=== PATIENT | male | born 1950 | race Caucasian/White ===

== ENCOUNTER 2017-08-21 09:15 | Observation (INO) ==
[2017-08-21] MEDS ORDERED: *HR* Adenosine 6 MG/2 ML VIAL IVP ONE (09:34)
[2017-08-21 09:48] LABS: Basophils # 0.1 K/mcL (0.0-0.2); Basophils % 0.5 %; Eosinophils # 0.2 K/mcL (0.0-0.6); Hematocrit 40.3 % (37.5-50.1); Hemoglobin 12.9 g/dL (12.9-16.9); Immature Granulocytes % 0.5 % (0-4); Lymphocytes # 2.2 K/mcL (0.6-4.6); Lymphocytes % 21.5 %; Mean Corpuscular Volume 78.1 fL (83.0-100.0); Mean Platelet Volume 8.9 fL (9.4-12.4); Monocytes # 0.8 K/mcL (0.0-1.3); Monocytes % 7.5 %; Neutrophils # 6.9 K/mcL (1.6-8.9); Platelet Count 381 K/mcL (140-400); Red Blood Count 5.16 M/mcL (4.19-5.50); Red Cell Distribution Width 17.2 % (11.5-14.5)
[2017-08-21 09:53] LABS: Prothrombin Time 10.9 Seconds (9.4-12.1)
[2017-08-21 09:56] LABS: Activated Partial Thrombo Time 32.3 Seconds (26.0-36.0); BUN/Creatinine Ratio 10 (6-26); Blood Urea Nitrogen 12 mg/dL (8-26); Calcium 9.6 mg/dL (8.6-10.8); Carbon Dioxide 26 mEq/L (19-29); Chloride 102 mEq/L (98-109); Glucose 136 mg/dL (70-99); Osmolality,Calculated 288 (280-300); Potassium 4.1 mEq/L (3.5-4.5); Sodium 138 mEq/L (136-145); eGFR For African Americans > 60 (> 60); eGFR For Non-African Americans 60 (> 60)
--- NOTE | 2017-08-21 10:13 | Emergency Department Note ---
Disposition Clinical Impression: Palpitations, Supraventricular tachycardia Disposition: Admitted As Inpatient Condition: Good Referrals: Daniel Bob MD [Primary Care Provider] - Forms: ED Satisfaction Letter Time of Disposition: 10:21 Arrhythmia/Palpitations HPI - General Chief Complaint: ED Arrhythmia/Palpitations Stated Complaint: SVT from cardiology Time Seen by Provider: 08/21/17 09:18 Source: patient Mode of arrival: ambulatory Limitations: no limitations Nursing Notes Reviewed: Yes Vital Signs Reviewed: Yes - History of Present Illness HPI Narrative: Patient presents to the cardiology office for evaluation of tachycardia. Patient has been being followed closely by cardiology for tachycardia and atrial fibrillation over the last several weeks. Is on a Holter monitor placement that time. Denied any recent trauma or injury or medication changes this point. He is concerned because his had intermittent chest pressure and then tachycardia. Deburring Technician Dr. Juan Isbell advised to come or the emergency room for evaluation. 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 Duration: constant Severity: moderate Context: occurred during rest Arrhythmia History: atrial fibrillation, SVT Associated symptoms: Reports: chest pain Treatments prior to arrival: vagal maneuvers - Related Data Home Medications Medication Instructions Recorded Confirmed Aspirin [Lo-Dose Aspirin EC] 81 mg PO DAILY 05/02/16 08/21/17 Gabapentin [Neurontin] 600 mg PO TID 05/02/16 08/21/17 Levalbuterol [Xopenex INH] 2 puff IH Q6H 05/02/16 08/21/17 Levothyroxine [Synthroid] 75 mcg PO 0630 05/02/16 08/21/17 Omeprazole [PriLOSEC] 40 mg PO DAILY 05/02/16 08/21/17 OxyCODONE/APAP 10/325 [Percocet 1 tab PO TID PRN 05/02/16 08/21/17 10/325 MG] Tiotropium [Spiriva] 1 puff IH DAILY 05/02/16 08/21/17 Diltiazem CD (24hr) [Cardizem CD] 240 mg PO DAILY 05/05/16 08/21/17 Fluticasone/Salmeterol [Advair 1 puff IH BID 06/16/16 08/21/17 250-50 Diskus] Lactose-Reduced Food [Ensure 1 bottle PO TID 06/16/16 08/21/17 Liquid] Nitroglycerin [Nitrostat] 0.4 mg SL AD PRN 06/16/16 08/21/17 Roflumilast [Daliresp] 500 mcg PO DAILY 06/16/16 08/21/17 Mirtazapine [Remeron] 15 mg PO HS 08/21/17 08/21/17 Promethazine [Phenergan] 25 mg PO BID PRN 08/21/17 08/21/17 Previous Rx's Medication Instructions Recorded Rivaroxaban [Xarelto] 20 mg PO DAILY #30 tablet 05/05/16 Propafenone [Rhythmol] 150 mg PO Q8H #90 tablet 06/17/16 Allergies Allergy/AdvReac Type Severity Reaction Status Date / Time Cyclobenzaprine Allergy Mild Hives Verified 08/21/17 09:57 [From Flexeril] Oxycodone Allergy Unknown Itching Verified 08/21/17 09:57 All systems ED: reviewed and negative except as stated. Review of Systems: As Per HPI Constitutional: Denies: fever, chills Eyes: Denies: eye pain Cardiovascular: Reports: palpitations. Denies: chest pain, dyspnea on exertion , orthopnea Respiratory: Denies: cough, dyspnea, wheezes Gastrointestinal: Denies: abdominal pain, nausea, vomiting, diarrhea Genitourinary: Denies: urgency, dysuria, frequency Musculoskeletal: Denies: back pain, neck pain Neurological: Denies: headache Past Medical History - Past Medical History Attestation: Yes The following information was validated with the patient. Source: patient Medical history: Reports: GERD, hypertension, thyroid disease Surgical history: Reports: herniorrhaphy Psychiatric history: Reports: no psych history - Social History Smoking Status: Current every day smoker Smokeless Tobacco Status: No Alcohol use: Reports: none Drug use: Reports: none Physical Exam - General Limitations: no limitations General appearance: alert, in no apparent distress - Head Head exam: atraumatic, normocephalic, normal inspection - Chest Chest inspection: Present: normal inspection, symmetric chest wall rise. Absent : tenderness - Respiratory Respiratory exam: Present: normal lung sounds bilaterally. Absent: respiratory distress, wheezes, stridor, accessory muscle use - Cardiovascular Cardiovascular exam: Present: normal rhythm, tachycardia, normal heart sounds - Abdominal Exam Abdominal exam: Present: soft, Non-Tender, normal bowel sounds. Absent: tenderness, distention, guarding, rebound, rigidity - Extremities Exam Extremities exam: Present: normal inspection, full ROM, normal capillary refill. Absent: tenderness, pedal edema - Back Exam Back exam: Present: normal inspection - Neurological Exam Neurological exam: Present: alert, oriented X3, CN II-XII intact, normal gait - Skin Skin exam: Present: warm, dry, intact, normal color Course Course Narrative: Patient seen and examined the time arrival here to the emergency room. 59-year- old male presents from cardiology office for evaluation of supraventricular tachycardia. Patient has history of atrial fibrillation and SVT in the past. Currently is a Holter monitor in place. He is at the file machine operator office this morning secondary to standard outpatient evaluation and some intermittent chest pressure and discomfort. On presentation here patient had an EKG and hand that did show sinus tachycardia with a rate of approximately 175. He was sent over from the file machine operator's office after vagal maneuvers were attempted. Immediately patient was placed on a monitored pacer pads were applied to the chest and the defibrillator box was attached to the patient this time. 2 large- bore IVs were accessed in the before meals bilaterally. Patient was hemodynamically stable mentating appropriately. Currently denying any other symptoms. Lungs were clear heart regular abdomen is soft nontender nondistended no guarding no rigidity. He has not fallen or injured himself anytime recently. Patient is currently on Zarontin Cardizem metoprolol and Rythmol. Immediate EKG was reviewed by myself at the bedside showing what appears to be a stable complex SVT with a normal QRS morphology on the terminal aspect of the QRS. I discussed this with the on-call file machine operator Dr. Juan Isbell. He agreed this is probably P-wave with SVT. During our conversation the patient spontaneously converted back to sinus rhythm. Repeat EKG collected approximately 30 minutes after arrival showing sinus rhythm with a heart rate of 101. TN interval 160 QRS duration 91. QTC of 410. No other recommendations noted in the file machine operator except that we should admit the patient prep regulation of his medication. Screening laboratory workup completed at this time. Patient is currently symptom free. No other intervention required. The emergency room at this point. Admission process to be completed once laboratory workup is resulted. Patient was informed the plan is comfortable with this plan. - Reevaluation(s) Reevaluation #1: Laboratory workup was otherwise unremarkable this time. Deburring Technician in hospitals consult around the emergency room. Patient will be admitted for medication management. No other concerns or issues are noted. Admission process to be completed at this time. Time: 11:09 Vital Signs Temperature 0 F L 08/21/17 09:25 Pulse Rate 170 08/21/17 09:25 Respiratory Rate 18 08/21/17 09:25 Blood Pressure 119/108 08/21/17 09:25 O2 Sat by Pulse Oximetry 99 08/21/17 09:25 Temperature 0 F L 08/21/17 09:25 Pulse Rate 170 08/21/17 09:35 Respiratory Rate 20 08/21/17 09:35 Blood Pressure 117/84 08/21/17 09:35 O2 Sat by Pulse Oximetry 98 08/21/17 09:35 Oxygen Delivery Oxygen Delivery Room Air Arrhythmia/Palpitations - MDM Narrative Medical decision making narrative: Supraventricular tachycardia - Medical Records Medical records reviewed: Yes I reviewed the patient's medical records. - Lab Data Lab results reviewed: Yes I reviewed the patient's lab results. Result diagrams: 08/21/17 09:30 08/21/17 09:30 Lab Results 08/21/17 08/21/17 08/21/17 Range/Units 09:30 09:30 09:30 WBC 10.1 (4.3-11.1) K/mcL RBC 5.16 (4.19-5.50) M/mcL Hgb 12.9 (12.9-16.9) g/dL Hct 40.3 (37.5-50.1) % MCV 78.1 L (83.0-100.0) fL MCH 25.0 L (28.0-33.3) pg MCHC 32.0 (31.6-35.5) g/dL RDW 17.2 H (11.5-14.5) % Plt Count 381 (140-400) K/mcL MPV 8.9 L (9.4-12.4) fL Immature Gran % 0.5 (0-4) % Seg Neutrophils % 68.0 % Lymphocytes % 21.5 % Monocytes % 7.5 % Eosinophils % 2.0 % Basophils % 0.5 % Neutrophils # 6.9 (1.6-8.9) K/mcL Lymphocytes # 2.2 (0.6-4.6) K/mcL Monocytes # 0.8 (0.0-1.3) K/mcL Eosinophils # 0.2 (0.0-0.6) K/mcL Basophils # 0.1 (0.0-0.2) K/mcL PT 10.9 (9.4-12.1) Seconds INR 1.0 APTT 32.3 (26.0-36.0) Seconds Sodium 138 (136-145) mEq/L Potassium 4.1 (3.5-4.5) mEq/L Chloride 102 (98-109) mEq/L Carbon Dioxide 26 (19-29) mEq/L BUN 12 (8-26) mg/dL Creatinine 1.21 (0.72-1.25) mg/dL Est GFR ( Amer) > 60 (> 60) Est GFR (Non-Af Amer) 60 (> 60) BUN/Creatinine Ratio 10 (6-26) Glucose 136 H (70-99) mg/dL Calculated Osmolality 288 (280-300) Calcium 9.6 (8.6-10.8) mg/dL Magnesium 2.0 (1.6-2.6) mg/dL Troponin I (0-0.03) ng/mL TSH 2.820 (0.350-4.840) mcIU/mL 08/21/17 Range/Units 09:30 WBC (4.3-11.1) K/mcL RBC (4.19-5.50) M/mcL Hgb (12.9-16.9) g/dL Hct (37.5-50.1) % MCV (83.0-100.0) fL MCH (28.0-33.3) pg MCHC (31.6-35.5) g/dL RDW (11.5-14.5) % Plt Count (140-400) K/mcL MPV (9.4-12.4) fL Immature Gran % (0-4) % Seg Neutrophils % % Lymphocytes % % Monocytes % % Eosinophils % % Basophils % % Neutrophils # (1.6-8.9) K/mcL Lymphocytes # (0.6-4.6) K/mcL Monocytes # (0.0-1.3) K/mcL Eosinophils # (0.0-0.6) K/mcL Basophils # (0.0-0.2) K/mcL PT (9.4-12.1) Seconds INR APTT (26.0-36.0) Seconds Sodium (136-145) mEq/L Potassium (3.5-4.5) mEq/L Chloride (98-109) mEq/L Carbon Dioxide (19-29) mEq/L BUN (8-26) mg/dL Creatinine (0.72-1.25) mg/dL Est GFR ( Amer) (> 60) Est GFR (Non-Af Amer) (> 60) BUN/Creatinine Ratio (6-26) Glucose (70-99) mg/dL Calculated Osmolality (280-300) Calcium (8.6-10.8) mg/dL Magnesium (1.6-2.6) mg/dL Troponin I 0.01 (0-0.03) ng/mL TSH (0.350-4.840) mcIU/mL - Radiology Data Radiology results reviewed: Yes I reviewed the patient's radiology results. Chest x-ray stable showing no acute morphology abnormalities or intrathoracic pathology - EKG Data EKG attestation: Yes I reviewed and interpreted this EKG. EKG results narrative: Initial EKG showed sinus supraventricular tachycardia with heart rate 171.. Spontaneous conversion to sinus rhythm was noted with a heart rate of 101. TN interval of 160. Temperature 90.1. QTC of 410. Intervals as well as EKG were reviewed and compared to previous EKG shows no acute ST segment elevation, Brugada syndrome.
[2017-08-21] MEDS ORDERED: Nitroglycerin 0.4 MG TAB.SUBL SL PRN (11:37)
[2017-08-21] MEDS ORDERED: Naloxone 0.4 MG/ML INJ IVP PRN (11:41)
--- NOTE | 2017-08-21 11:59 | Internal Med History&Physical ---
<Joce Rosado J - Last Filed: 08/21/17 11:52> Date of Encounter: 08/21/17 Time of Encounter: 11:52 Assessment and Plan (1) Supraventricular tachycardia Current visit: Yes Status: Acute Was at cardiology office today for appointment for evaluation of Holter monitor. While in the office he was SOB and tachycardic and was found to be in SVT and sent to ED. Has since self converted to sinus tachycardia. Labs are unremarkable, He is hemodynamically stable and in no distress at this time. Cardiology consulted in ED; will see today. Plan is to increase rhythmol dose; medication adjustment to be done per cardiology Resume CCB, Xarelto, ASA, and Rhythmol Continuous tele, Continuous SPO2 monitoring Serial troponins BMP and CBC in the morning (2) PAF (paroxysmal atrial fibrillation) Current visit: Yes Status: Chronic H/o PAF, on xarelto, CCB and Rhythmol. He reports that he was at his chief guard today for review of a holter monitor. He has been experiences increasing episodes of symptomatic tachycardia. Was found to be in SVT and sent to ED. See plan above (3) COPD (chronic obstructive pulmonary disease) Current visit: Yes Status: Acute Stable, no respiratory distress. Continue bronchodilators and inhaled corticosteroids Qualifiers: Qualified Code(s): J44.9 - Chronic obstructive pulmonary disease, unspecified (4) Hypothyroidism Current visit: Yes Status: Acute TSH checked and unremarkable, Resume Synthroid at home dose Qualifiers: Qualified Code(s): E03.9 - Hypothyroidism, unspecified (5) HTN (hypertension) Current visit: Yes Status: Acute BP currently stable. Continue CCB. Qualifiers: Hypertension type: essential hypertension Qualified Code(s): I10 - Essential (primary) hypertension (6) Tobacco abuse Current visit: Yes Status: Acute Provided smoking cessation counseling. Patient declines nicotine patch at this time Internal Medicine - H&P: HPI Chief complaint: SVT Admitted From: Home Plans for Post Hospital Care: Home History of present illness: Mr. Santos is a 67 year old male with a PMH of GERD, HTN, hypothyroidism, COPD, Afib and a prior [place]. He presents today from the cardiology office for evaluation of SVT. He was at his chief guard appointment this appointment for a holter monitor evaluation. While in the office he was noted to be SOB and tachycardic. An EKG was performed and he was found to be in SVT. Carotid and vagal maneuvers were performed in the cardiology office and were unsuccessful. He was then sent to [facility] ED for admission d/t SVT. While in the ED the patient self converted to SR. He reports that he has a history of Afib and often experiences symptomatic tachycardia. He denies any recent illnesses, fevers, chills, N/V/D. He admits to intermittent chest pressure associated with tachycardic episodes, but notes that the chest pressure resolves with the tachycardia. He is being admitted for further monitoring and will likely adjustment of his antiarrhythmic medication. Past Med Surg Social Fam HX - Past Medical History Medical history: GERD, hypertension, thyroid disease Psychiatric history: no psych history - Past Surgical History Surgical History: herniorrhaphy - Social History Smoking Status: Current every day smoker Smokeless Tobacco Status: No Alcohol use: none Drug use: none - Additional Family History Additional family history: Reports no significant family history Internal Medicine - H&P: Meds Aspirin [Lo-Dose Aspirin EC] 81 mg PO DAILY 05/02/16 [History] Gabapentin [Neurontin] 600 mg PO TID 05/02/16 [History] Levalbuterol [Xopenex INH] 2 puff IH Q6H 05/02/16 [History] Levothyroxine [Synthroid] 75 mcg PO 0630 05/02/16 [History] Omeprazole [PriLOSEC] 40 mg PO DAILY 05/02/16 [History] OxyCODONE/APAP 10/325 [Percocet 10/325 MG] 1 tab PO TID PRN 05/02/16 [History] Tiotropium [Spiriva] 1 puff IH DAILY 05/02/16 [History] Diltiazem CD (24hr) [Cardizem CD] 240 mg PO DAILY 05/05/16 [History] Rivaroxaban [Xarelto] 20 mg PO DAILY #30 tablet 05/05/16 [Rx] Fluticasone/Salmeterol [Advair 250-50 Diskus] 1 puff IH BID 06/16/16 [History] Lactose-Reduced Food [Ensure Liquid] 1 bottle PO TID 06/16/16 [History] Nitroglycerin [Nitrostat] 0.4 mg SL AD PRN 06/16/16 [History] Roflumilast [Daliresp] 500 mcg PO DAILY 06/16/16 [History] Propafenone [Rhythmol] 150 mg PO Q8H #90 tablet 06/17/16 [Rx] Mirtazapine [Remeron] 15 mg PO HS 08/21/17 [History] Promethazine [Phenergan] 25 mg PO BID PRN 08/21/17 [History] 3 Allergy/AdvReac Type Severity Reaction Status Date / Time Cyclobenzaprine Allergy Mild Hives Verified 08/21/17 09:57 [From Flexeril] Oxycodone Allergy Unknown Itching Verified 08/21/17 09:57 All Systems PM: A 10-system review of systems was performed and is negative for pertinent findings except as documented above in the HPI. - Constitutional Constitutional: fatigue (presents with tachycardia but improves when tachycardia resolves), no chills, no fever(s), no weight gain, no weight loss - Cardiovascular Cardiovascular ROS IM: as per HPI, chest pain (pressure), dyspnea on exertion, irregular heart rhythm, lightheadedness, palpitations, no diaphoresis, no edema , no orthopnea, no paroxysmal nocturnal dyspnea, no syncope - Respiratory Respiratory: cough (chronic), dyspnea on exertion, no dyspnea, no wheezing, no pain on inspiration, no chest congestion, no pain with cough - Gastrointestinal Gastrointestinal: no abdominal pain, no diarrhea, no hematemesis, no hematochezia, no melena, no nausea, no vomiting - Musculoskeletal Musculoskeletal ROS IM: no numbness, no tingling - Integumentary Integumentary IM: no rash, no unusual bruising - Neurological Neurological ROS: no confusion, no convulsions, no focal weakness, no numbness, no tingling, no tremor(s) - Constitutional Vitals: Temp Pulse Resp BP Pulse Ox 0 F L 170 20 117/84 98 08/21/17 09:25 08/21/17 09:35 08/21/17 09:35 08/21/17 09:35 08/21/17 09:35 General appearance: Present: mild distress, A&O X 3, answers questions appropriately - Head Head exam: Present: atraumatic, normocephalic - Neck Neck exam general surgery: Present: supple, trachea midline. Absent: lymphadenopathy - Respiratory Respiratory exam: Present: decreased breath sounds, CTAB. Absent: accessory muscle use, rales, rhonchi, wheezes - Cardiovascular Cardiovascular exam: Present: RRR, +S1, +S2, tachycardia. Absent: diastolic murmur, gallop, rubs, systolic murmur - GI/Abdominal GI/Abdominal exam: Present: normal bowel sounds, soft, no peritoneal signs. Absent: distended, tenderness - Extremities Exam Extremities exam: Present: warm, radial pulses palpable and symmetrical. Absent : calf tenderness, cyanotic, pedal edema - Neurological Exam Neurological exam: Present: alert, oriented X3. Absent: facial droop - Skin Skin exam: Present: dry, intact Internal Med - H&P Results - Labs CBC & Chem 7: 08/21/17 09:30 08/21/17 09:30 - EKG Data -: EKG Interpreted by Myself EKG shows normal: sinus rhythm Rate: tachycardia - EKG Data Prior EKG available for review: yes When compared to previous EKG: there are significant changes EKG comments: Prior EKG exhibited SVT HR of 171, repeat approximately 30 minutes after arrival to ED reveal sinus tachycardia HR 101 08/21/17 12:02 - Diagnostic Studies Chest x-ray Status: image reviewed by me Additional comments: no acute pulmonary process - VTE Reasons for not Prescribing Prophylaxis: Not indicated-Anticoagulated or INR therapeutic <Eleazar Noriega P - Last Filed: 08/22/17 18:51> Date of Encounter: 08/22/17 Internal Medicine - H&P: HPI History of present illness: Mr. Santos is a 67 year old male All Systems PM: A 10-system review of systems was performed and is negative for pertinent findings except as documented above in the HPI. - Constitutional Vitals: Temp Pulse Resp BP Pulse Ox 98.3 F 75 18 104/65 95 08/22/17 16:20 08/22/17 16:20 08/22/17 16:20 08/22/17 16:20 08/22/17 16:20 Internal Med - H&P Results - Labs CBC & Chem 7: 08/22/17 05:55 08/22/17 05:55 Labs: Short CBC 08/22/17 Range/Units 05:55 WBC 6.2 (4.3-11.1) K/mcL Hgb 9.5 L D (12.9-16.9) g/dL Hct 29.5 L (37.5-50.1) % Plt Count 256 (140-400) K/mcL Neutrophils # 3.3 (1.6-8.9) K/mcL BMP 08/22/17 05:55 Sodium 137 Potassium 4.2 Chloride 106 Carbon Dioxide 22 BUN 12 Creatinine 0.85 Glucose 94 Calcium 8.2 L Cardiac Enzymes 08/21/17 Range/Units 21:00 Troponin I 0.02 (0-0.03) ng/mL - Attending Attestation I examined this patient and my medical decision-making was reviewed with the Resident Physician/TAPE MAKER. I agree with the documented findings, disposition and treatment plan as described except to the extent set forth below. patient seen and examined chart reviewed management as per cardiology
[2017-08-21] MEDS ORDERED: Levalbuterol 1 PUFF INHALER IH SCH (12:00)
[2017-08-21] MEDS ORDERED: *HR* Rivaroxaban 10 MG TABLET PO ONE (14:49)
--- NOTE | 2017-08-21 15:09 | Cardiology Consult Note ---
<Shira Mclaughlin - Last Filed: 08/21/17 15:22> Date of Encounter: 08/21/17 Time of Encounter: 14:00 Assessment and Plan (1) Supraventricular tachycardia Current Visit: Yes Status: Acute Per cardiology: -Admitted with SVT, HR 170s, was given adenosine in ER. -Currently SR. -[facility] 04/2016 with 15% proximal LAD stenosis, 15% proximal circumflex, 20% mid RCA. -TTE 03/2016 with LVEF 50%, mild diastolic dysfunction, RV is normal in size with mild reduction in function, mild MR, mild TR, all wall segments with normal motion. -On rhythmol 150mg [id number]. -ECG today after conversion to SR with ST, HR 101, QRS 91ms. -Per discussion with , will increase rhythmol to 225mg Q8 hours. -Will monitor ECGs daily. -Continuous telemetry monitoring. -Will continue to monitor (2) PAF (paroxysmal atrial fibrillation) Current Visit: Yes Status: Chronic Per cardiology: -Known history of PAF. -On xarelto for anticoagulation. -On rhythmol and cardizem. -Rhythmol is being increased to 225mg [id number], first dose now -Has not had xarelto today, will give one time dose now. -Will continue to monitor. Discussion w patient/family: The assessment and plan as outlined above was discussed with the patient and/or family members who expressed understanding and agreement. All questions were answered. Thank you for involving us in the care of your patient. Please call with any questions. Discussed and reviewed with . History of Present Illness Consult date: 08/21/17 Requesting physician: Timur Wilkes Consult reason: SVT Chief complaint: palpitations History of present illness: Mr. Santos is a 67 year old male with a relevant past medical history of GERD, SVT, parosymal atrial fibrillation, hypothyroidism. Patient states today around 0530, he noticed palpitations and fluttering. Patient states he had shortness of breath and dizziness. Patient also reports that he felt at times like he might pass out. Patient however, denies loss of conciousness. Patient went to his [facility] and was noted to be in SVT. Patient was sent to emergency room. Patient was given adenosine. Patient denies current symtpoms. Past Med Surg Social Fam HX - Past Medical History Attestation: Yes The following information was validated with the patient. Source: patient, old records reviewed, obtained from family Medical history: atrial fibrillation, COPD, GERD, hyperlipidemia, hypertension, myocardial infarction, SVT, thyroid disease Psychiatric history: no psych history - Past Surgical History Surgical History: herniorrhaphy - Social History Smoking Status: Current every day smoker Packs per day: 1/2 Smokeless Tobacco Status: No Alcohol use: none Drug use: none Medications and Allergies Aspirin [Lo-Dose Aspirin EC] 81 mg PO DAILY 05/02/16 [History] Gabapentin [Neurontin] 600 mg PO TID 05/02/16 [History] Levalbuterol [Xopenex INH] 2 puff IH Q6H 05/02/16 [History] Levothyroxine [Synthroid] 75 mcg PO 0630 05/02/16 [History] Omeprazole [PriLOSEC] 40 mg PO DAILY 05/02/16 [History] OxyCODONE/APAP 10/325 [Percocet 10/325 MG] 1 tab PO TID PRN 05/02/16 [History] Tiotropium [Spiriva] 1 puff IH DAILY 05/02/16 [History] Diltiazem CD (24hr) [Cardizem CD] 240 mg PO DAILY 05/05/16 [History] Rivaroxaban [Xarelto] 20 mg PO DAILY #30 tablet 05/05/16 [Rx] Fluticasone/Salmeterol [Advair 250-50 Diskus] 1 puff IH BID 06/16/16 [History] Lactose-Reduced Food [Ensure Liquid] 1 bottle PO TID 06/16/16 [History] Nitroglycerin [Nitrostat] 0.4 mg SL AD PRN 06/16/16 [History] Roflumilast [Daliresp] 500 mcg PO DAILY 06/16/16 [History] Propafenone [Rhythmol] 150 mg PO Q8H #90 tablet 06/17/16 [Rx] Mirtazapine [Remeron] 15 mg PO HS 08/21/17 [History] Promethazine [Phenergan] 25 mg PO BID PRN 08/21/17 [History] 3 Allergy/AdvReac Type Severity Reaction Status Date / Time Cyclobenzaprine Allergy Mild Hives Verified 08/21/17 09:57 [From Flexeril] Oxycodone Allergy Unknown Itching Verified 08/21/17 09:57 All Systems Review: A 10-system review of systems was performed and is negative for pertinent findings except as documented above in the HPI. - Cardiovascular Cardiovascular: as per HPI, dyspnea on exertion, lightheadedness, palpitations, rapid heart rate Physical Examination Vital Signs, Last 4 Hours Pulse Resp BP Pulse Ox 08/21/17 13:00 88 18 115/75 98 General: Conversant, No Apparent Distress HEENT: Atraumatic, Normocephaly, Mucus Membranes Moist Neck: No JVD, Normal carotid pulses Cardiac: Reg Rate and Rhythm, Normal S1 and S2, No Murmur Lungs: Normal Breath Sounds, No Wheeze, Rales, Rhonchi Neuro: Alert and responsive, No focal deficits noted Abdomen: Soft, Non-Tender Skin: No rashes noted on visualized skin Musculoskeletal: No Chest Wall Tenderness Extremities: No Clubbing, No Cyanosis, No Edema, Normal Pulses Results 08/21/17 09:30 08/21/17 09:30 Impressions Chest X-Ray 08/21/17 09:26 IMPRESSION: No acute process. D/ /21/2017 10:46:00 Arnoldo Sofia MD / [facility] Interpreting Provider: Arnoldo Sofia MD Active Medications Aspirin (Aspirin Ec) 81 mg PO DAILY EV Stop: 02/21/18 09:01 Budesonide/Formoterol Fumarate (Symbicort) 2 puff IH BIDR EV Stop: 02/20/18 22:01 Diltiazem HCl (Cardizem Cd) 240 mg PO DAILY EV Stop: 02/21/18 09:01 Gabapentin (Neurontin) 600 mg PO TID EV Stop: 02/20/18 15:01 Levalbuterol HCl (Xopenex) 2 puff IH Q6HR EV Stop: 02/20/18 12:01 Last Admin: 08/21/17 14:57 Dose: Not Given Levothyroxine Sodium (Synthroid) 75 mcg PO 0630 EV Stop: 02/21/18 06:31 Mirtazapine (Remeron) 15 mg PO HS [facility] Stop: 02/20/18 21:01 Naloxone HCl (Narcan) 0.4 mg IVP Q2MIN PRN PRN Reason: Opioid Reversal Stop: 02/20/18 11:42 Nitroglycerin (Nitroglycerin) 0.4 mg SL AD PRN PRN Reason: Chest Pain Stop: 02/20/18 11:38 Omeprazole (Prilosec) 40 mg PO 0630 EV PRN Reason: Protocol Stop: 02/21/18 06:31 Oxycodone/Acetaminophen (Percocet 10/325) 1 each PO TID PRN PRN Reason: Breakthrough Pain Stop: 02/20/18 11:38 Pharmacy Profile Note (Patient Taking Own Medication) 0 each PO DAILY EV Stop: 02/21/18 09:01 Promethazine HCl (Phenergan) 25 mg PO BID PRN PRN Reason: Nausea Stop: 02/20/18 11:38 Propafenone HCl (Rhythmol) 225 mg PO Q8H EV Stop: 02/20/18 22:01 Propafenone HCl (Rhythmol) 225 mg PO ONCE ONE Stop: 08/21/17 14:48 Rivaroxaban (Xarelto) 20 mg PO DAILY EV Stop: 02/21/18 12:01 Rivaroxaban (Xarelto) 20 mg PO ONCE ONE Stop: 08/21/17 14:50 Tiotropium [place] (Spiriva) 18 mcg IH DAILYR [facility] Stop: 02/21/18 10:01 Laboratory Tests 08/21/17 08/21/17 08/21/17 09:30 09:30 09:30 Hgb 12.9 Potassium 4.1 Creatinine 1.21 Magnesium 2.0 Troponin I 0.01 TSH 2.820 - Imaging and Cardiology Chest Xray: report reviewed Echo: report reviewed Cardiac cath: report reviewed - EKG Interpretation EKG results cardiology: personally reviewed (ECG on admission with SVT, HR 171.) , other (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 I have reviewed and agree with the care plan. History and Exam by me shows: 67 YOM with h/o afib and SVT recently with episode of SVT associated with CP. Patient currently resting comfortably with NSR. D/W EP and will increase Rythmol to 225mg TID. Continue to monitor on telelmetry CP likely rate related. LHC previously unremarkable Assessment and Plan Discussion w patient/family: The assessment and plan as outlined above was discussed with the patient and/or family members who expressed understanding and agreement. All questions were answered. Thank you for involving us in the care of your patient. Please call with any questions. History of Present Illness History of present illness: Mr. Santos is a 67 year old male All Systems Review: A 10-system review of systems was performed and is negative for pertinent findings except as documented above in the HPI. Physical Examination Vital Signs, Last 4 Hours Pulse Resp BP Pulse Ox 08/21/17 13:00 88 18 115/75 98 Results 08/21/17 09:30 08/21/17 09:30
[2017-08-21] MEDS: Levalbuterol 1 PUFF INHALER IH SCH ×2 (16:35→23:35)
[2017-08-21] MEDS: Gabapentin 300 MG CAPSULE PO SCH ×2 (16:46→21:30)
--- NOTE | 2017-08-21 19:41 | Electrocardiograph Report ---
[place] [id number] Test Date: 2017-08-21 Pat Name: Barrie Santos Department: 104 Room: 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
[2017-08-21] MEDS: Mirtazapine 15 MG TABLET PO SCH (21:30)
[2017-08-21] MEDS ORDERED: Budesonide/Formoterol 80/4.5 MDI IH SCH (22:00)
[2017-08-22] MEDS: Levalbuterol 1 PUFF INHALER IH SCH ×2 (04:07→11:23)
[2017-08-22] MEDS: Levothyroxine 25 MCG TABLET PO SCH (06:13)
[2017-08-22] MEDS: *HR* OxyCODONE/APAP 10/325 TABLET PO PRN ×3 (06:17→22:01)
[2017-08-22 06:59] LABS: Basophils % 0.6 %; Eosinophils # 0.2 K/mcL (0.0-0.6); Eosinophils % 3.4 %; Hematocrit 29.5 % (37.5-50.1); Immature Granulocytes % 0.3 % (0-4); Lymphocytes % 31.7 %; Mean Corpuscular HGB Conc 32.2 g/dL (31.6-35.5); Mean Corpuscular Hemoglobin 25.5 pg (28.0-33.3); Mean Corpuscular Volume 79.1 fL (83.0-100.0); Mean Platelet Volume 9.7 fL (9.4-12.4); Monocytes # 0.6 K/mcL (0.0-1.3); Monocytes % 10.2 %; Neutrophils # 3.3 K/mcL (1.6-8.9); Platelet Count 256 K/mcL (140-400); Red Blood Count 3.73 M/mcL (4.19-5.50); Red Cell Distribution Width 16.9 % (11.5-14.5); Segmented Neutrophils % 53.8 %
[2017-08-22 07:21] LABS: BUN/Creatinine Ratio 14 (6-26); Blood Urea Nitrogen 12 mg/dL (8-26); Calcium 8.2 mg/dL (8.6-10.8); Carbon Dioxide 22 mEq/L (19-29); Chloride 106 mEq/L (98-109); Glucose 94 mg/dL (70-99); Osmolality,Calculated 284 (280-300); Potassium 4.2 mEq/L (3.5-4.5); Sodium 137 mEq/L (136-145); eGFR For African Americans > 60 (> 60); eGFR For Non-African Americans > 60 (> 60)
[2017-08-22 07:23] LABS: Hemoglobin 9.5 g/dL (12.9-16.9)
[2017-08-22] MEDS ORDERED: (Roflumilast [Daliresp] 500 MCG) PO SCH (09:00)
[2017-08-22] MEDS ORDERED: *HR* Rivaroxaban 10 MG TABLET PO SCH (09:00)
[2017-08-22] MEDS: Diltiazem CD (24hr) 240 MG CAPSULE PO SCH (09:39)
[2017-08-22] MEDS: Gabapentin 300 MG CAPSULE PO SCH ×3 (09:39→22:00)
[2017-08-22] MEDS: Aspirin Enteric Coated 81 MG Tablet PO SCH (09:39)
[2017-08-22] MEDS: Tiotropium 18 MCG inhalation IH SCH (11:26)
[2017-08-22] MEDS ORDERED: Levalbuterol Neb 0.63 MG/3 ML IH PRN (11:56)
[2017-08-22] MEDS: *HR* Rivaroxaban 10 MG TABLET PO SCH (11:56)
--- NOTE | 2017-08-22 12:03 | Internal Med Progress Note ---
Date of Encounter: 08/22/17 Time of Encounter: 12:02 - Assessment and plan (1) Supraventricular tachycardia Status: Acute Assessment and plan: Noted to have supraventricular tachycardia with heart rate in 160s in the emergency room, spontaneously converted to sinus rhythm. Cardiology was consulted, patient has been on Rythmol at home, dose is increased to 225 mg every 8 hourly. Continue to monitor telemetry and serial EKGs. Currently in sinus rhythm, rate controlled. (2) PAF (paroxysmal atrial fibrillation) Status: Chronic Assessment and plan: Currently in sinus rhythm. Continue long-term anticoagulation with Xarelto. (3) Hypothyroidism Status: Chronic Assessment and plan: Continue levothyroxine. Qualifiers: Hypothyroidism type: unspecified Qualified Code(s): E03.9 - Hypothyroidism , unspecified (4) COPD (chronic obstructive pulmonary disease) Status: Chronic Assessment and plan: Not in acute exacerbation. Continue when necessary bronchodilators and supplemental oxygen. Qualifiers: COPD type: unspecified COPD Qualified Code(s): J44.9 - Chronic obstructive pulmonary disease, unspecified (5) HTN (hypertension) Status: Chronic Qualifiers: Hypertension type: essential hypertension Qualified Code(s): I10 - Essential (primary) hypertension (6) Tobacco abuse Status: Chronic - Subjective Interval history: Feels well; no chest pain, palpitations, dyspnea today; - Constitutional Vitals: Temp Pulse Resp BP Pulse Ox 98.2 F 72 18 112/70 97 08/22/17 11:03 08/22/17 11:03 08/22/17 11:26 08/22/17 11:03 08/22/17 11:26 General appearance: Present: A&O X 3, answers questions appropriately - Respiratory Respiratory exam: Present: CTAB. Absent: accessory muscle use, rales, rhonchi, wheezes - Cardiovascular Cardiovascular exam: Present: RRR, +S1, +S2. Absent: diastolic murmur, gallop, rubs, systolic murmur - GI/Abdominal GI/Abdominal exam: Present: normal bowel sounds, soft, no peritoneal signs. Absent: distended, tenderness - Extremities Exam Extremities exam: Present: full ROM, warm, radial pulses palpable and symmetrical. Absent: calf tenderness, cyanotic, pedal edema Internal Medicine: Result - Labs CBC & Chem 7: 08/23/17 05:42 08/23/17 05:42 Labs: Short CBC 08/22/17 Range/Units 05:55 WBC 6.2 (4.3-11.1) K/mcL Hgb 9.5 L D (12.9-16.9) g/dL Hct 29.5 L (37.5-50.1) % Plt Count 256 (140-400) K/mcL Neutrophils # 3.3 (1.6-8.9) K/mcL BMP 08/22/17 05:55 Sodium 137 Potassium 4.2 Chloride 106 Carbon Dioxide 22 BUN 12 Creatinine 0.85 Glucose 94 Calcium 8.2 L Cardiac Enzymes 08/21/17 08/21/17 Range/Units 15:36 21:00 Troponin I 0.02 0.02 (0-0.03) ng/mL - ABG Interpretation ABG results: PT/INR, D-dimer PT 10.9 Seconds (9.4-12.1) 08/21/17 09:30 - VTE Reasons for not Prescribing Prophylaxis: Not indicated-Anticoagulated or INR therapeutic Consult Discharge Plan - Plan Additional Instructions: F/up with Cardiology as scheduled Referrals: Peg Cannon, MACHINE ACCOUNTANT [Advanced Practice Nurse] - 08/30/17 1:00 pm Prescriptions: Propafenone [Rhythmol] 225 mg PO Q8H #135 tablet
--- NOTE | 2017-08-22 13:16 | Cardiology Progress Note ---
Date of Encounter: 08/22/17 Time of Encounter: 08:00 Assessment and Plan (1) Supraventricular tachycardia Current Visit: Yes Status: Acute Per cardiology: -Admitted with SVT, HR 170s, was given adenosine in ER. -Currently SR. -[facility] 04/2016 with 15% proximal LAD stenosis, 15% proximal circumflex, 20% mid RCA. -[facility] 03/2016 with LVEF 50%, mild diastolic dysfunction, RV is normal in size with mild reduction in function, mild MR, mild TR, all wall segments with normal motion. -Rhythmol increased to 225mg q8 hours. S/p 3 total doses of increased rhythmol -ECG today after conversion to SR with ST, HR 101, QRS 91ms. -ECG today with SR, HR 67. QRS 114ms. -ECGs discussed and reviewed with Dr.John Isbell, ok to continue rhythmol. -ECG in am. -Continue telemetry monitoring. (2) PAF (paroxysmal atrial fibrillation) Current Visit: Yes Status: Chronic Per cardiology: -Known history of PAF. -On xarelto for anticoagulation. -On rhythmol and cardizem. -Rhythmol increased, s/p 3 doses of increased rhythmol. -Will continue to monitor. Discussion w patient/family: The assessment and plan as outlined above was discussed with the patient who expressed understanding and agreement. All questions were answered. Thank you for involving us in the care of your patient. Please call with any questions. Discussed and reviewed with and Dr.John Isbell. Subjective Principal diagnosis: SVT Interval history: Patient states he feels well. Denies complaints. Objective Vital Signs, Last 4 Hours Temp Pulse Resp BP Pulse Ox 08/22/17 11:26 18 97 08/22/17 11:03 98.2 F 72 17 112/70 96 General: Conversant, No Apparent Distress HEENT: Atraumatic, Normocephaly, Mucus Membranes Moist Neck: No JVD, Normal carotid pulses Cardiac: Reg Rate and Rhythm, Normal S1 and S2, No Murmur Lungs: Normal Breath Sounds, No Wheeze, Rales, Rhonchi Neuro: Alert and responsive, No focal deficits noted Abdomen: Soft, Non-Tender Skin: No rashes noted on visualized skin Musculoskeletal: No Chest Wall Tenderness Extremities: No Clubbing, No Cyanosis, No Edema, Normal Pulses Results 08/22/17 05:55 08/22/17 05:55 Lab Results Active Medications Aspirin (Aspirin Ec) 81 mg PO DAILY [facility] Stop: 02/21/18 09:01 Last Admin: 08/22/17 09:39 Dose: Not Given Budesonide/Formoterol Fumarate (Symbicort) 2 puff IH BIDR EV PRN Reason: Protocol Stop: 02/21/18 22:01 Diltiazem HCl (Cardizem Cd) 240 mg PO DAILY [facility] Stop: 02/21/18 09:01 Last Admin: 08/22/17 09:39 Dose: 240 mg Gabapentin (Neurontin) 600 mg PO TID [facility] Stop: 02/20/18 15:01 Last Admin: 08/22/17 09:39 Dose: 600 mg Levalbuterol HCl (Xopenex) 0.63 mg IH [id number] PRN PRN Reason: Shortness Of Breath/Wheezing Stop: 02/21/18 16:01 Levothyroxine Sodium (Synthroid) 75 mcg PO 0630 [facility] Stop: 02/21/18 06:31 Last Admin: 08/22/17 06:13 Dose: 75 mcg Mirtazapine (Remeron) 15 mg PO HS [facility] Stop: 02/20/18 21:01 Last Admin: 08/21/17 21:30 Dose: 15 mg Naloxone HCl (Narcan) 0.4 mg IVP Q2MIN PRN PRN Reason: Opioid Reversal Stop: 02/20/18 11:42 Nitroglycerin (Nitroglycerin) 0.4 mg SL AD PRN PRN Reason: Chest Pain Stop: 02/20/18 11:38 Omeprazole (Prilosec) 40 mg PO 0630 EV PRN Reason: Protocol Stop: 02/21/18 06:31 Last Admin: 08/22/17 06:13 Dose: 40 mg Oxycodone/Acetaminophen (Percocet 10/325) 1 each PO TID PRN PRN Reason: Breakthrough Pain Stop: 02/20/18 11:38 Last Admin: 08/22/17 06:17 Dose: 1 each Promethazine HCl (Phenergan) 25 mg PO BID PRN PRN Reason: Nausea Stop: 02/20/18 11:38 Propafenone HCl (Rhythmol) 225 mg PO Q8H [facility] Stop: 02/20/18 22:01 Last Admin: 08/22/17 06:13 Dose: 225 mg Rivaroxaban (Xarelto) 20 mg PO DAILY [facility] Stop: 02/21/18 12:01 Last Admin: 08/22/17 11:56 Dose: 20 mg Tiotropium [place] (Spiriva) 18 mcg IH DAILYR [facility] Stop: 02/21/18 10:01 Last Admin: 08/22/17 11:26 Dose: Not Given Laboratory Tests 08/21/17 08/21/17 08/21/17 09:30 09:30 15:36 Hgb Potassium Creatinine Magnesium 2.0 Troponin I 0.01 0.02 TSH 2.820 08/21/17 08/22/17 08/22/17 21:00 05:55 05:55 Hgb 9.5 L D Potassium 4.2 Creatinine 0.85 Magnesium Troponin I 0.02 TSH - Imaging and Cardiology Chest Xray: report reviewed Echo: report reviewed Cardiac cath: report reviewed - EKG Interpretation EKG results cardiology: personally reviewed (ECG today with SR, HR 67. QRS 114ms.), other (Telemetry reviewed with average HR previous 12 hours noted to be 78, sinus rhythm. PVCs and PACs noted.) - VTE Reasons for not Prescribing Prophylaxis: Not indicated-Anticoagulated or INR therapeutic Consult Discharge Plan - Plan Referrals: Daniel Bob MD [Primary Care Provider] -
[2017-08-22] MEDS: Budesonide/Formoterol 160/4.5 MDI IH SCH (20:18)
[2017-08-22] MEDS: Mirtazapine 15 MG TABLET PO SCH (22:01)
[2017-08-23] MEDS: Levothyroxine 25 MCG TABLET PO SCH (06:22)
[2017-08-23 06:25] LABS: BUN/Creatinine Ratio 11 (6-26); Blood Urea Nitrogen 9 mg/dL (8-26); Calcium 8.5 mg/dL (8.6-10.8); Carbon Dioxide 25 mEq/L (19-29); Chloride 106 mEq/L (98-109); Glucose 111 mg/dL (70-99); Osmolality,Calculated 289 (280-300); Potassium 4.1 mEq/L (3.5-4.5); Sodium 140 mEq/L (136-145); eGFR For African Americans > 60 (> 60); eGFR For Non-African Americans > 60 (> 60)
[2017-08-23 06:30] LABS: Basophils % 0.8 %; Eosinophils # 0.3 K/mcL (0.0-0.6); Eosinophils % 4.8 %; Hematocrit 29.8 % (37.5-50.1); Hemoglobin 9.6 g/dL (12.9-16.9); Immature Granulocytes % 0.4 % (0-4); Lymphocytes # 1.8 K/mcL (0.6-4.6); Lymphocytes % 34.8 %; Mean Corpuscular HGB Conc 32.2 g/dL (31.6-35.5); Mean Corpuscular Hemoglobin 25.7 pg (28.0-33.3); Mean Corpuscular Volume 79.7 fL (83.0-100.0); Mean Platelet Volume 9.2 fL (9.4-12.4); Monocytes # 0.5 K/mcL (0.0-1.3); Monocytes % 10.1 %; Neutrophils # 2.6 K/mcL (1.6-8.9); Platelet Count 226 K/mcL (140-400); Red Blood Count 3.74 M/mcL (4.19-5.50); Red Cell Distribution Width 16.9 % (11.5-14.5); Segmented Neutrophils % 49.1 %
[2017-08-23] MEDS: Budesonide/Formoterol 160/4.5 MDI IH SCH (07:57)
[2017-08-23] MEDS: Tiotropium 18 MCG inhalation IH SCH (07:57)
[2017-08-23] MEDS ORDERED: FLUARIX QUAD 2017-18 36MOS UP/PF 0.5 ML SYRINGE IM ONE (09:48)
--- NOTE | 2017-08-23 09:48 | Cardiology Progress Note ---
Date of Encounter: 08/23/17 Time of Encounter: 08:30 Assessment and Plan (1) Supraventricular tachycardia Current Visit: Yes Status: Acute Per cardiology: -Admitted with SVT, HR 170s, was given adenosine in ER. -Currently SR. -[facility] 04/2016 with 15% proximal LAD stenosis, 15% proximal circumflex, 20% mid RCA. -[facility] 03/2016 with LVEF 50%, mild diastolic dysfunction, RV is normal in size with mild reduction in function, mild MR, mild TR, all wall segments with normal motion. -Rhythmol increased to 225mg q8 hours. S/p 6 total doses of increased rhythmol -ECG on admission after conversion to SR with ST, HR 101, QRS 91ms. -ECG yesterday with SR, HR 67. QRS 114ms. -ECG today with sinus bradycardia, HR 54. QRS 103ms. -Average HR previous 12 hours noted to be 61, SR. -ECGs discussed and reviewed with Dr.John Isbell. -Cardiology will sign off and will follow in outpatient setting. Follow up set. (2) PAF (paroxysmal atrial fibrillation) Current Visit: Yes Status: Chronic Per cardiology: -Known history of PAF. -On xarelto for anticoagulation. -On rhythmol and cardizem. -Rhythmol increased, s/p 6 doses of increased rhythmol. -No evidence of a.fib noted per telemetry. -Will continue to monitor in outpatient setting. Discussion w patient/family: The assessment and plan as outlined above was discussed with the patient and family who expressed understanding and agreement. All questions were answered. Thank you for involving us in the care of your patient. Please call with any questions. Discussed and reviewed with and Dr.John Isbell. Subjective Principal diagnosis: SVT Interval history: Patient states he feels well. Denies complaints. Denies palpitations or fluttering. Objective Vital Signs, Last 4 Hours Temp Pulse Resp BP Pulse Ox 08/23/17 08:31 97.7 F 57 17 111/71 08/23/17 08:09 97.7 F 57 17 111/71 93 General: Conversant, No Apparent Distress HEENT: Atraumatic, Normocephaly, Mucus Membranes Moist Neck: No JVD, Normal carotid pulses Cardiac: Reg Rate and Rhythm, Normal S1 and S2, No Murmur Lungs: Normal Breath Sounds, No Wheeze, Rales, Rhonchi Neuro: Alert and responsive, No focal deficits noted Abdomen: Soft, Non-Tender Skin: No rashes noted on visualized skin Musculoskeletal: No Chest Wall Tenderness Extremities: No Clubbing, No Cyanosis, No Edema, Normal Pulses Results 08/23/17 05:42 08/23/17 05:42 Lab Results Active Medications Aspirin (Aspirin Ec) 81 mg PO DAILY [facility] Stop: 02/21/18 09:01 Last Admin: 08/22/17 09:39 Dose: Not Given Budesonide/Formoterol Fumarate (Symbicort) 2 puff IH BIDR EV PRN Reason: Protocol Stop: 02/21/18 22:01 Last Admin: 08/23/17 07:57 Dose: 2 puff Diltiazem HCl (Cardizem Cd) 240 mg PO DAILY [facility] Stop: 02/21/18 09:01 Last Admin: 08/22/17 09:39 Dose: 240 mg Gabapentin (Neurontin) 600 mg PO TID [facility] Stop: 02/20/18 15:01 Last Admin: 08/22/17 22:00 Dose: 600 mg Levalbuterol HCl (Xopenex) 0.63 mg IH [id number] PRN PRN Reason: Shortness Of Breath/Wheezing Stop: 02/21/18 16:01 Levothyroxine Sodium (Synthroid) 75 mcg PO 0630 [facility] Stop: 02/21/18 06:31 Last Admin: 08/23/17 06:22 Dose: 75 mcg Mirtazapine (Remeron) 15 mg PO HS EV Stop: 02/20/18 21:01 Last Admin: 08/22/17 22:01 Dose: 15 mg Naloxone HCl (Narcan) 0.4 mg IVP Q2MIN PRN PRN Reason: Opioid Reversal Stop: 02/20/18 11:42 Nitroglycerin (Nitroglycerin) 0.4 mg SL AD PRN PRN Reason: Chest Pain Stop: 02/20/18 11:38 Omeprazole (Prilosec) 40 mg PO 0630 EV PRN Reason: Protocol Stop: 02/21/18 06:31 Last Admin: 08/23/17 06:22 Dose: 40 mg Oxycodone/Acetaminophen (Percocet 10/325) 1 each PO TID PRN PRN Reason: Breakthrough Pain Stop: 02/20/18 11:38 Last Admin: 08/22/17 22:01 Dose: 1 each Promethazine HCl (Phenergan) 25 mg PO BID PRN PRN Reason: Nausea Stop: 02/20/18 11:38 Propafenone HCl (Rhythmol) 225 mg PO Q8H [facility] Stop: 02/20/18 22:01 Last Admin: 08/23/17 06:23 Dose: 225 mg Rivaroxaban (Xarelto) 20 mg PO DAILY [facility] Stop: 02/21/18 12:01 Last Admin: 08/22/17 11:56 Dose: 20 mg Tiotropium [place] (Spiriva) 18 mcg IH DAILYR [facility] Stop: 02/21/18 10:01 Last Admin: 08/23/17 07:57 Dose: 18 mcg Laboratory Tests 08/23/17 08/23/17 05:42 05:42 Hgb 9.6 L Potassium 4.1 Creatinine 0.85 - Imaging and Cardiology Chest Xray: report reviewed Echo: report reviewed - EKG Interpretation EKG results cardiology: personally reviewed (ECG today with Sinus bradycardia, HR 54. QRS 103ms.), other (Telemetry reviewed with average HR previous 12 hours noted to be 61, sinus rhythm. PACs noted.) - VTE Reasons for not Prescribing Prophylaxis: Not indicated-Anticoagulated or INR therapeutic Consult Discharge Plan - Plan Referrals: Daniel Bob MD [Primary Care Provider] -
[2017-08-23] MEDS: Diltiazem CD (24hr) 240 MG CAPSULE PO SCH (09:49)
[2017-08-23] MEDS: Gabapentin 300 MG CAPSULE PO SCH ×2 (09:49→14:16)
[2017-08-23] MEDS: *HR* Rivaroxaban 10 MG TABLET PO SCH (09:49)
[2017-08-23] MEDS: Aspirin Enteric Coated 81 MG Tablet PO SCH (09:51)
[2017-08-23] MEDS: *HR* OxyCODONE/APAP 10/325 TABLET PO PRN (09:55)
[2017-08-23 11:04] VITALS: BP 122/73
--- NOTE | 2017-08-23 14:34 | Discharge Summary ---
Date of Encounter: 08/23/17 Time of Encounter: 10:00 - Discharge Diagnosis (1) Supraventricular tachycardia Priority: Primary Status: Acute (2) PAF (paroxysmal atrial fibrillation) Priority: Secondary Status: Chronic (3) Hypothyroidism Priority: Secondary Status: Chronic Qualifiers: Hypothyroidism type: unspecified Qualified Code(s): E03.9 - Hypothyroidism , unspecified (4) COPD (chronic obstructive pulmonary disease) Priority: Secondary Status: Chronic Qualifiers: COPD type: unspecified COPD Qualified Code(s): J44.9 - Chronic obstructive pulmonary disease, unspecified (5) HTN (hypertension) Priority: Secondary Status: Chronic Qualifiers: Hypertension type: essential hypertension Qualified Code(s): I10 - Essential (primary) hypertension (6) Tobacco abuse Priority: Secondary Status: Chronic - Discharge Medications Prescriptions: Propafenone [Rhythmol] 225 mg PO Q8H #135 tablet Home Medications: Aspirin [Lo-Dose Aspirin EC] 81 mg PO DAILY 05/02/16 [History] Gabapentin [Neurontin] 600 mg PO TID 05/02/16 [History] Levalbuterol [Xopenex INH] 2 puff IH Q6H 05/02/16 [History] Levothyroxine [Synthroid] 75 mcg PO 0630 05/02/16 [History] Omeprazole [PriLOSEC] 40 mg PO DAILY 05/02/16 [History] OxyCODONE/APAP 10/325 [Percocet 10/325 MG] 1 tab PO TID PRN 05/02/16 [History] Tiotropium [Spiriva] 1 puff IH DAILY 05/02/16 [History] Diltiazem CD (24hr) [Cardizem CD] 240 mg PO DAILY 05/05/16 [History] Rivaroxaban [Xarelto] 20 mg PO DAILY #30 tablet 05/05/16 [Rx] Fluticasone/Salmeterol [Advair 250-50 Diskus] 1 puff IH BID 06/16/16 [History] Lactose-Reduced Food [Ensure Liquid] 1 bottle PO TID 06/16/16 [History] Nitroglycerin [Nitrostat] 0.4 mg SL AD PRN 06/16/16 [History] Roflumilast [Daliresp] 500 mcg PO DAILY 06/16/16 [History] Mirtazapine [Remeron] 15 mg PO HS 08/21/17 [History] Promethazine [Phenergan] 25 mg PO BID PRN 08/21/17 [History] Propafenone [Rhythmol] 225 mg PO Q8H #135 tablet 08/23/17 [Rx] Allergies/Adverse Reactions: 3 Allergy/AdvReac Type Severity Reaction Status Date / Time Cyclobenzaprine Allergy Mild Hives Verified 08/21/17 09:57 [From Flexeril] Oxycodone Allergy Unknown Itching Verified 08/21/17 09:57 Procedures/tests Complete & Pending: Procedures Performed prior 72 hours Category Date Time Status ECG 12 lead ECG [ECG] AM 0600 Y 08/22/17 06:00 Completed ECG 12 lead ECG [ECG] AM 0600 Y 08/23/17 06:00 Completed ECG 12 lead ECG [ECG] AM 0600 Y 08/24/17 06:00 Ordered ECG 12 lead ECG [ECG] Routine Y 08/21/17 09:50 Completed ECG 12 lead ECG [ECG] Routine Y 08/22/17 22:43 Completed Date of admission: 08/21/17 11:20 Primary care physician: Daniel Bob MD Discharging clinician: Abbie Schmidt Anticipated date of discharge: 08/23/17 - Patient Status Disposition: Home, Self-Care Condition: Good Functional capacity at discharge: independent ambulation Overall status at discharge: patient is progressing back to baseline - Discharge Instructions Follow Up With: Peg Cannon CLINICAL GENETICIST [Advanced Practice Nurse] - 08/30/17 1:00 pm Additional Instructions: F/up with Cardiology as scheduled - Diet and Activity Activity: resume usual activities as tolerated Diet: low fat, low cholesterol, low salt diet Hospital course: Mr. Santos is a 67 year old male - Time Spent with Patient Total time spent providing and/or coordinating discharge services: Greater than 30 minutes - Constitutional Vitals: Temp Pulse Resp BP Pulse Ox 97.6 F 65 18 122/73 98 08/23/17 11:02 08/23/17 11:02 08/23/17 11:02 08/23/17 11:02 08/23/17 11:02 General appearance: Present: A&O X 3, answers questions appropriately - Respiratory Respiratory exam: Present: CTAB. Absent: accessory muscle use, rales, rhonchi, wheezes - VTE Reasons for not Prescribing Prophylaxis: Not indicated-Anticoagulated or INR therapeutic
--- NOTE | 2017-08-24 15:43 | Electrocardiograph Report ---
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
--- NOTE | 2017-08-24 16:11 | Electrocardiograph Report ---
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
--- NOTE | 2017-08-24 16:34 | Electrocardiograph Report ---
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
--- NOTE | 2017-08-24 16:48 | Electrocardiograph Report ---
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
== END 2017-08-23 15:00 | disposition home or self-care (01) ==
LOC: 3BNU 09:15 → EMEROO 09:15 → SUATTDRO 11:20 → 2ANU 14:30
PROVIDERS: ADMIT Internal Medicine; ATTEND Internal Medicine

== ENCOUNTER 2018-03-11 11:27 | Observation (INO) ==
[2018-03-11] MEDS ORDERED: 0.9 % Sodium Chloride 1,000 ML IVC SCH (11:45)
--- NOTE | 2018-03-11 12:04 | Anesthesia Evaluation PreOp ---
Date of Encounter: 03/11/18 Time of Encounter: 12:02 - Past History Planned Operation: cryoablation Cardiac History: MO, HTN, Hyperlipidemia, Arrhythmia (PAF with SVT) Pulmonary History: Smoker, Pack/yr (49), COPD POLE SHAVER History: Other (chronic sciatic pain) Other Medical History: Thyroid (hypo), GERD (barretts esophagus) Anesthesia History: No Prior Anesthetic Complications, Past Anesthesia (EGD, hernia repair) Alcohol Use: none Drug use: none Medications and Allergies Gabapentin [Neurontin] 600 mg PO TID PRN 05/02/16 [History] Levothyroxine [Synthroid] 75 mcg PO 0630 05/02/16 [History] Omeprazole [PriLOSEC] 40 mg PO DAILY 05/02/16 [History] Tiotropium [Spiriva] 1 puff IH DAILY 05/02/16 [History] Diltiazem CD (24hr) [Cardizem CD] 240 mg PO DAILY 05/05/16 [History] Rivaroxaban [Xarelto] 20 mg PO DAILY #30 tablet 05/05/16 [Rx] Roflumilast [Daliresp] 500 mcg PO DAILY 06/16/16 [History] EPINEPHrine [Epipen] 0.3 mg IM ONCE PRN 01/17/18 [History] Propafenone HCl 300 mg PO Q8H 03/11/18 [History] 3 Allergy/AdvReac Type Severity Reaction Status Date / Time Cyclobenzaprine Allergy Mild Hives Verified 02/28/18 14:54 [From Flexeril] Oxycodone Allergy Unknown Itching Verified 02/28/18 14:54 - Meds/Allergy Pre-op Review Medications Reviewed: Yes Allergies Reviewed: Yes Beta Blockers on Current Med List: No Anesthesia Results - Labs Laboratory Tests 02/28/18 02/28/18 02/28/18 16:04 16:04 16:04 Hgb 10.2 L Hct 32.5 L PT 12.8 H INR 1.2 APTT 35.5 Sodium 135 L Potassium 3.8 BUN 11 Creatinine 0.94 - Imaging EKG: report reviewed (SINUS RHYTHM BORDERLINE LEFT AXIS DEVIATION INCOMPLETE RIGHT BUNDLE BRANCH BLOCK) Anesthesia Exam - HEENT Pupil (Motor): EOMI Mallampati: II Teeth: Normal Oral Opening: Greater than 3 - POLE SHAVER LOC: Oriented POLE SHAVER Motor: Normal RUE, Normal LUE, Normal RLE, Normal LLE, Normal Face POLE SHAVER Sensory: Normal: RUE, LUE, RLE, LLE, Face - Cardiac Rhythm: Regular Murmur: None - Pulmonary Breath Sounds: bilateral Clear Respiratory Effort: Symmetrical Anesthesia Assess/Plan ASA Score: 3 Modified Anil Scale for Level of Consciousness: Cooperative, oriented, and tranquil Anesthetic Plan: General Monitoring Plan: Standard Monitors Recovery Plan: Other (agrees to GA, 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
[2018-03-11] MEDS ORDERED: 0.9 % Sodium Chloride Mini Bag 100 ML ONE (12:10)
[2018-03-11] MEDS ORDERED: *HR* PHENYLEPHRINE 1,000 MCG/10 ML SYRINGE IVP ONE (12:11)
[2018-03-11] MEDS ORDERED: *HR* Heparin 10,000 UNIT/10 ML VIAL ONE ×2 (13:09→13:13)
[2018-03-11] MEDS ORDERED: 0.9 % Sodium Chloride 1,000 ML ONE (13:09)
[2018-03-11] MEDS ORDERED: ISOVUE-370 200 ML INFUS..BTL IV ONE (13:09)
[2018-03-11] MEDS ORDERED: Heparin 1,000 UNITS/500 mL 500 ML ONE (13:09)
[2018-03-11] MEDS ORDERED: Heparin 1,000 UNITS/500 mL 1,000 ML ONE (13:13)
[2018-03-11] MEDS ORDERED: *HR* FentaNYL (PF) 100 MCG/2 ML VIAL ONE (13:13)
[2018-03-11] MEDS ORDERED: *HR* Midazolam HCl 2 MG/2 ML VIAL ONE (13:13)
[2018-03-11] MEDS ORDERED: Protamine Sulfate 50 MG/5 ML VIAL IVP ONE ×2 (16:41→16:42)
[2018-03-11] MEDS ORDERED: Naloxone 0.4 MG/ML INJ IVP PRN (17:24)
[2018-03-11] MEDS ORDERED: *HR* EPINEPHrine 30 MG/30 ML MDV IM PRN (17:27)
[2018-03-11] MEDS ORDERED: Gabapentin 300 MG CAPSULE PO PRN (17:27)
[2018-03-11] MEDS ORDERED: *HR* Morphine 2 MG/ML SYRINGE ONE (17:46)
[2018-03-11] MEDS ORDERED: *HR* Propofol 200 MG/20 ML VIAL IVP ONE (18:04)
[2018-03-11] MEDS ORDERED: Ondansetron 4 MG/2 ML VIAL IVP ONE (18:04)
[2018-03-11] MEDS ORDERED: *HR* Phenylephrine 10 MG/ML VIAL IVC ONE (18:04)
--- NOTE | 2018-03-11 18:24 | Electrocardiograph Report ---
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
[2018-03-11] MEDS: *HR* Morphine 2 MG/ML SYRINGE IVP PRN (18:25)
[2018-03-12 07:36] VITALS: BP 102/72
--- NOTE | 2018-03-12 08:40 | Discharge Summary ---
Orders not resulted at time of discharge: Pending orders 03/11/18 11:39 CL Ablation [CL] Routine Date of Encounter: 03/12/18 Time of Encounter: 08:40 - Discharge Diagnosis (1) PAF (paroxysmal atrial fibrillation) Priority: Primary Status: Chronic Comments: Directly admitted for cryoablation for paf - Hospital Course Hospital course: Mr. Santos is a 67 year old male seen by Dr. Juan Isbell January 2018 and underwent cryoablation for paroxysmal atrial fibrillation 03/11/2018. Patient stable today with no concerns or complications. Prepping for discharge home today in stable condition. Discussed and reviewed with Dr. Juan Isbell and remains on Cardizem, Rythmol, and Xarelto. Follow-up arranged. All questions answered. - Time Spent with Patient Total time spent providing and/or coordinating discharge services: Less than 30 minutes - Discharge Medications Home Medications: Gabapentin [Neurontin] 600 mg PO TID PRN 05/02/16 [History] Levothyroxine [Synthroid] 75 mcg PO 0630 05/02/16 [History] Omeprazole [PriLOSEC] 40 mg PO DAILY 05/02/16 [History] Tiotropium [Spiriva] 1 puff IH DAILY 05/02/16 [History] Diltiazem CD (24hr) [Cardizem CD] 240 mg PO DAILY 05/05/16 [History] Rivaroxaban [Xarelto] 20 mg PO DAILY #30 tablet 05/05/16 [Rx] Roflumilast [Daliresp] 500 mcg PO DAILY 06/16/16 [History] EPINEPHrine [Epipen] 0.3 mg IM ONCE PRN 01/17/18 [History] Propafenone HCl 300 mg PO Q8H 03/11/18 [History] Allergies/Adverse Reactions: 3 Allergy/AdvReac Type Severity Reaction Status Date / Time Cyclobenzaprine Allergy Mild Hives Verified 02/28/18 14:54 [From Flexeril] Oxycodone Allergy Unknown Itching Verified 02/28/18 14:54 Date of admission: 03/11/18 18:03 Primary care physician: Daniel Bob MD Consults: none Discharging clinician: Sukhjinder Cole Anticipated date of discharge: 03/12/18 Physical Examination Vital Signs, Last 4 Hours Temp Pulse Resp BP Pulse Ox 03/12/18 07:34 98.2 F 72 18 102/72 92 General: Conversant, No Apparent Distress HEENT: Atraumatic, Normocephaly, Mucus Membranes Moist Neck: No JVD, Normal carotid pulses Cardiac: Reg Rate and Rhythm, Normal S1 and S2, No Murmur Lungs: Normal Breath Sounds, No Wheeze, Rales, Rhonchi Neuro: Alert and responsive, No focal deficits noted Abdomen: Soft, Non-Tender Skin: No rashes noted on visualized skin, Other (Bilateral groin sites dry and intact with no hematoma, no bleeding, no ecchymosis) Musculoskeletal: No Chest Wall Tenderness Extremities: No Clubbing, No Cyanosis, No Edema, Normal Pulses - Patient Status Disposition: Home, Self-Care Condition: Good Functional capacity at discharge: independent ambulation Overall status at discharge: patient is progressing back to baseline - Discharge Instructions Follow Up With: Daniel Bob MD [Primary Care Provider] - (Dr. Bob is on Vacation so patient will see Peg Cannon) Peg Cannon CNP [Advanced Practice Nurse] - 03/15/18 1:00 pm Shira Mclaughlin CNP [Advanced Practice Nurse] - 04/18/18 2:30 pm - Diet and Activity Diet: advance to your usual diet - VTE Reasons for not Prescribing Prophylaxis: Not indicated-Anticoagulated or INR therapeutic
[2018-03-12] MEDS: *HR* Morphine 2 MG/ML SYRINGE IVP PRN (08:45)
[2018-03-12] MEDS ORDERED: *HR* Rivaroxaban 10 MG TABLET PO SCH (09:00)
[2018-03-12] MEDS ORDERED: Tiotropium 18 MCG inhalation IH SCH (09:00)
[2018-03-12] MEDS ORDERED: Diltiazem CD (24hr) 240 MG CAPSULE PO SCH (09:00)
[2018-03-12] MEDS ORDERED: (Roflumilast [Daliresp] 500 MCG) PO SCH (09:00)
--- NOTE | 2018-03-12 17:26 | Electrocardiograph Report ---
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
== END 2018-03-12 10:23 | disposition home or self-care (01) ==
LOC: INVDIALAB 11:27 → 2NNU 11:27
PROVIDERS: ADMIT Internal Medicine Clinical Cardiac Electrophysiology; ATTEND Internal Medicine Clinical Cardiac Electrophysiology

== ENCOUNTER 2019-06-18 17:47 | Inpatient (IN) ==
[2019-06-18] MEDS ORDERED: GI Cocktail 40 ML EACH PO ONE (18:28)
[2019-06-18] MEDS ORDERED: Famotidine 20 MG/2 ML VIAL IVP ONE (18:28)
--- NOTE | 2019-06-18 18:34 | Emergency Department Note ---
Disposition Clinical Impression: Chest pain Disposition: Admitted As Inpatient Condition: Fair Referrals: Светлана Alonzo CNP [Primary Care Provider] - Time of Disposition: 18:36 Chest Pain HPI - General Chief Complaint: ED Chest Pain Stated Complaint: CP Time Seen by Provider: 06/18/19 18:04 Source: patient Mode of arrival: ambulatory Limitations: no limitations Vital Signs Reviewed: Yes Nursing Notes Reviewed: Yes - History of Present Illness HPI Narrative: Patient presented emergency department with return as directed. He states that since he left earlier today, he has had recurrent episodes of chest pain especially with exertion and states he still has 8 out of 10 pain right now. He states he is back to be admitted to the hospital. He denies any other symptoms numbness weakness fevers chills cough sputum production palpitations shortness of breath. Pain still in the left side of his chest pressure radiating towards the left shoulder towards left neck. Severity scale (1-10): 8 - Related Data Home Medications Medication Instructions Recorded Confirmed Gabapentin [Neurontin] 600 mg PO TID PRN 05/02/16 11/07/18 Levothyroxine [Synthroid] 75 mcg PO 0630 05/02/16 11/07/18 Omeprazole [PriLOSEC] 40 mg PO DAILY 05/02/16 11/07/18 Tiotropium [Spiriva] 1 puff IH DAILY 05/02/16 11/07/18 Diltiazem CD (24hr) [Cardizem CD] 240 mg PO DAILY 05/05/16 11/07/18 Roflumilast [Daliresp] 500 mcg PO DAILY 06/16/16 11/07/18 EPINEPHrine [Epipen] 0.3 mg IM ONCE PRN 01/17/18 11/07/18 Propafenone HCl 300 mg PO Q8H 03/11/18 11/07/18 Levalbuterol Neb [Xopenex Neb] 1.25 mg IH DAILY PRN 03/12/18 11/07/18 Mirtazapine [Remeron] 15 mg PO HS 03/12/18 11/07/18 Previous Rx's Medication Instructions Recorded Rivaroxaban [Xarelto] 20 mg PO DAILY #30 tablet 05/05/16 Aspirin Enteric Coated [Aspirin EC] 81 mg PO DAILY #30 tablet. 04/21/18 Benzonatate [Tessalon] 100 mg PO TID #30 capsule 07/24/18 DiphenhydraMINE [Benadryl] 25 mg PO Q8HR #20 capsule 10/08/18 Phenylephrine Nasal 0.5% [place] 2 spray NS ONCE #1 bottle 10/08/18 [Valerio-Synephrine] Allergies Allergy/AdvReac Type Severity Reaction Status Date / Time Cyclobenzaprine Allergy Mild Hives Verified 07/24/18 12:42 [From Flexeril] oxycodone [Oxycodone] Allergy Unknown Itching Verified 07/24/18 12:42 All systems ED: reviewed and negative except as stated. Review of Systems: As Per HPI Chest Pain PMH - Past Medical History Medical history: Reports: atrial fibrillation, COPD, SVT Surgical history: Reports: herniorrhaphy Psychiatric history: Reports: no psych history - Social History Smoking Status: Current every day smoker Alcohol use: Reports: occasionally Drug use: Reports: none Physical Exam - General Limitations: no limitations General appearance: alert, in no apparent distress - Head Head exam: atraumatic, normocephalic - Eye Eye exam: Present: normal appearance, PERRL - ENT ENT exam: normal exam, normal oropharynx - Neck Neck exam: Present: normal inspection - Chest Chest inspection: Present: normal inspection - Respiratory Respiratory exam: Present: normal lung sounds bilaterally. Absent: respiratory distress - Cardiovascular Cardiovascular exam: Present: regular rate, normal rhythm - Abdominal Exam Abdominal exam: Present: soft, Non-Tender - Extremities Exam Extremities exam: Present: normal inspection - Expanded Lower Extremity Exam Neurovascular/Tendon exam: Present: normal capillary refill - Back Exam Back exam: Present: normal inspection, full ROM - Neurological Exam Neurological exam: Present: alert, oriented X3, CN II-XII intact, reflexes normal - Psychiatric Psychiatric exam: Present: normal affect, normal mood - Skin Skin exam: Present: warm, dry, intact, normal color Course Vital Signs Temperature 97.4 F L 06/18/19 17:56 Pulse Rate 96 06/18/19 17:56 Respiratory Rate 18 06/18/19 17:56 Blood Pressure 139/83 06/18/19 17:56 O2 Sat by Pulse Oximetry 92 06/18/19 17:56 Temperature 97.4 F L 06/18/19 17:56 Pulse Rate 87 06/18/19 18:04 Respiratory Rate 18 06/18/19 18:04 Blood Pressure 136/83 06/18/19 18:04 O2 Sat by Pulse Oximetry 94 06/18/19 18:04 Oxygen Delivery Oxygen Delivery Room Air Chest Pain - MDM Narrative Medical decision making narrative: Repeat EKG was performed which showed no evidence of acute abnormality he had had aspirin earlier today repeat troponin was ordered he does not really want anything strong for pain he does not like nitroglycerin because it gives him a severe headache he would like to try a GI cocktail and some Pepcid to see if this works if it does not then he would like to consider something like Toradol. Patient will be admitted the hospital at this time per today's earlier recommendations, for evaluation of chest pain. Please see my chart from earlier today for full recommendations regarding cardiology. - Medical Records Medical records reviewed: Yes I reviewed the patient's medical records. - Lab Data Lab results reviewed: Yes I reviewed the patient's lab results. Heart Score - Score History: Moderately Suspicious EKG: Normal Age: Greater than 65 Risk Factors: Equal/Greater than 3 risk factor or history of atherosclerotic disease Troponin: Less than normal limit HEART Score Total: 5
[2019-06-18] MEDS ORDERED: Ketorolac 30 MG/ML VIAL IVP ONE (20:18)
[2019-06-18] MEDS ORDERED: *HR* EPINEPHrine 1 MG/10 ML SYRINGE IVP PRN (21:48)
--- NOTE | 2019-06-18 23:56 | Internal Med History&Physical ---
Date of Encounter: 06/18/19 Time of Encounter: 23:55 Internal Medicine - H&P: HPI Chief complaint: chest pain Admitted From: Home Plans for Post Hospital Care: Home History of present illness: Barrie Santos is a 69-year-old man with a history of coronary artery disease, supraventricular tachycardia and paroxysmal atrial fibrillation who has undergone 2 ablation procedures in the past and currently has a loop recorder implanted. He presented to the emergency room earlier this morning on referral from the cardiology clinic where he went to for his regular scheduled appointment but had reported developing a new onset precordial pain this morning before he went in. He described it as an acute onset oppressive pain that gave him a lot of concern so instead of coming to the ER he just followed up with the cardiology clinic. In the ER he was offered admission but he decided to go home to take care of a few things and comes back in stating that the pain has continued throughout the course of the day intermittently and seemingly related to exertion. At the time of my assessment he says the pain was still there but not as severe but declined the use of nitroglycerin because it gives him significant headaches. He continues to smoke about 10 cigarettes a day but reports adherence to his medications. His EKG revealed normal sinus rhythm and thus far he has 2 negative troponins. His last left heart catheterization was done in December 2015 which showed only mild nonobstructive CAD and a stress test done 3 months after that was unremarkable. Vitals: Reviewed General: Well-developed man sitting up in bed in no acute distress. Skin: Warm and dry. HEENT: Moist mucous membranes. No conjunctivae pallor. Neck: No lymphadenopathy. No JVD. No carotid bruits. No palpable thyroid. Chest: Normal thoracic expansion. Diminished breath sounds in both lung zavala but no wheezes, rales or rhonchi. Heart: Normal S1 & S2; rhythmic. No rubs or murmurs. Abdomen: Non-distended, soft and non-tender to palpation. No peritoneal reaction. Extremities: No clubbing, cyanosis or edema. No calf tenderness. Normal distal pulses. Neurological: Awake, alert and oriented to person, place and time. No focal deficits. Psych: Affect appropriate. Assessment/Plan 1. Unstable angina: Patient has new onset chest pain with characteristic features that appears related to physical exertion and obtains relief with rest. We will observe him on telemetry and continue to trend his troponins. He may benefit from another nuclear stress test so we will schedule that for the inés lee. Cardiology consultation was requested as was discussed on arrival to the ER. He will be nothing by mouth past midnight in the interim. 2. Atrial fibrillation: Seemingly resolved. Continue diltiazem and rivaroxaban. 3. Supraventricular tachycardia: On propafenone. 4. COPD: Levalbuterol ordered as needed and he will continue roflumilast and titropium daily. Smoking cessation advised. Past Med Surg Social Fam HX - Past Medical History Medical history: atrial fibrillation, COPD, SVT Additional medical history: SMOKING Psychiatric history: no psych history - Past Surgical History Surgical History: herniorrhaphy Additional surgical history: ABLATION, Loop recorder, esophagus muscle repair - Social History Smoking Status: Current every day smoker Packs per day: 10 cigarettes a day Smokeless Tobacco Status: No Alcohol use: occasionally Drug use: none - Family History Mother Adopted: No Family Member Ethnicity: Non- Living Status: Father Age: 70 Family Member Ethnicity: Non- Hx Family Respiratory Disorders: Yes (Black lung) Internal Medicine - H&P: Meds Gabapentin [Neurontin] 600 mg PO TID PRN 05/02/16 [History] Levothyroxine [Synthroid] 75 mcg PO 0630 05/02/16 [History] Omeprazole [PriLOSEC] 40 mg PO DAILY 05/02/16 [History] Tiotropium [Spiriva] 1 puff IH DAILY 05/02/16 [History] Diltiazem CD (24hr) [Cardizem CD] 240 mg PO DAILY 05/05/16 [History] Rivaroxaban [Xarelto] 20 mg PO DAILY #30 tablet 05/05/16 [Rx] Roflumilast [Daliresp] 500 mcg PO DAILY 06/16/16 [History] EPINEPHrine [Epipen] 0.3 mg IM ONCE PRN 01/17/18 [History] Propafenone HCl 300 mg PO Q8H 03/11/18 [History] Levalbuterol Neb [Xopenex Neb] 1.25 mg IH DAILY PRN 03/12/18 [History] Mirtazapine [Remeron] 15 mg PO HS 03/12/18 [History] Allergy/AdvReac Type Severity Reaction Status Date / Time Cyclobenzaprine Allergy Mild Hives Verified 07/24/18 12:42 [From Flexeril] oxycodone [Oxycodone] Allergy Unknown Itching Verified 07/24/18 12:42 All Systems PM: A 10-system review of systems was performed and is negative for pertinent findings except as documented above in the HPI. - Constitutional Vitals: Temp Pulse Resp BP Pulse Ox 98.4 F 81 17 135/75 93 06/18/19 21:21 06/18/19 21:21 06/18/19 21:21 06/18/19 21:21 06/18/19 21:21 Exam: . Internal Med - H&P Results - Labs Labs: Cardiac Enzymes 06/18/19 Range/Units 18:18 Troponin I < 0.03 (< 0.04) ng/mL - Time Spent With Patient Total time spent is greater than 50% in coordination of care (as documented) at patient's floor/unit and/or counseling patient:
[2019-06-19] MEDS: Mirtazapine 15 MG TABLET PO SCH ×2 (00:34→23:36)
[2019-06-19] MEDS: Gabapentin 300 MG CAPSULE PO PRN ×2 (00:35→22:19)
[2019-06-19 05:06] LABS: Basophils # 0.1 K/mcL (0.0-0.2); Basophils % 0.9 %; Eosinophils # 0.2 K/mcL (0.0-0.6); Eosinophils % 2.9 %; Hematocrit 29.8 % (37.5-50.1); Hemoglobin 9.1 g/dL (12.9-16.9); Immature Granulocytes % 0.2 % (0-4); Lymphocytes # 2.5 K/mcL (0.6-4.6); Lymphocytes % 44.1 %; Mean Corpuscular HGB Conc 30.5 g/dL (31.6-35.5); Mean Corpuscular Hemoglobin 23.2 pg (28.0-33.3); Mean Platelet Volume 9.9 fL (9.4-12.4); Monocytes # 0.4 K/mcL (0.0-1.3); Monocytes % 7.9 %; Neutrophils # 2.5 K/mcL (1.6-8.9); Platelet Count 272 K/mcL (140-400); Red Blood Count 3.92 M/mcL (4.19-5.50); Red Cell Distribution Width 20.8 % (11.5-14.5); White Blood Count 5.6 K/mcL (4.3-11.1)
[2019-06-19 05:22] LABS: Heparin anti-factor XA UFH 0.07 IU/mL (0.30-0.70); INR 0.9; Prothrombin Time 10.5 Seconds (9.4-12.1)
[2019-06-19 05:24] LABS: Activated Partial Thrombo Time 29.3 Seconds (26.0-36.0)
[2019-06-19 05:39] LABS: BUN/Creatinine Ratio 14 (6-26); Blood Urea Nitrogen 15 mg/dL (8-23); Calcium 8.7 mg/dL (8.6-10.3); Carbon Dioxide 25 mEq/L (23-29); Chloride 105 mEq/L (98-107); Glucose 87 mg/dL (70-105); Magnesium 1.4 mg/dL (1.6-2.6); Osmolality,Calculated 284 (280-300); Phosphorous 5.3 mg/dL (2.7-4.5); Potassium 3.9 mEq/L (3.5-5.1); Sodium 137 mEq/L (136-145); eGFR For African Americans > 60 (> 60); eGFR For Non-African Americans > 60 (> 60)
[2019-06-19] MEDS ORDERED: Regadenoson 0.4 MG/5 ML SYRINGE IVP ONE (06:13)
[2019-06-19] MEDS: Tiotropium 18 MCG inhalation IH SCH (10:03)
[2019-06-19] MEDS: Levalbuterol Neb 1.25 MG/3 ML IH PRN (10:05)
[2019-06-19] MEDS: *HR* Rivaroxaban 10 MG TABLET PO SCH (10:33)
[2019-06-19] MEDS: Diltiazem CD (24hr) 240 MG CAPSULE PO SCH (10:33)
[2019-06-19] MEDS: (Roflumilast [Daliresp] 500 MCG) PO SCH (10:34)
--- NOTE | 2019-06-19 12:34 | Internal Med Progress Note ---
Hospitalist Progress Note - Encounter Date of Encounter: 06/19/19 Time of Encounter: 12:28 - Subjective Interval History: Mr. Santos is a 69-year-old man with a history of coronary artery disease, supraventricular tachycardia and paroxysmal atrial fibrillation who has undergone 2 ablation procedures in the past and currently has a loop recorder implanted pt presented to ER with chest pain / pressure. He continues to smoke about 10 cigarettes a day but reports adherence to his medications. His EKG revealed normal sinus rhythm with no acute ischemic changes. His last left heart catheterization was done in December 2015 which showed only mild non obst ructive CAD and a stress test done 3 months after that was unremarkable. He was admitted in the hospital and placed him on manufacturing mechanic. He denied any active CP now. Resting comfortably. - Exam Vitals: Temp Pulse Resp BP Pulse Ox 97.6 F 73 18 118/76 92 06/19/19 10:32 06/19/19 10:32 06/19/19 10:32 06/19/19 10:32 06/19/19 10:32 Exam: Gen: Alert, awake, Oriented to time,place and person Chest: Diminished breath sounds B/L, No wheezing, No crackles, No rales Heart: S1S2+ RRR No murmurs Abd: Soft, NT, BS +, No organomegaly Ext: No edema, pulses are palpable, No calf tenderness Neuro : No acute focal neuro deficits noticed Skin: No rash. - Assessment and Plan (1) Chest pain Current Visit: No Status: Acute Assessment and Plan: so far negative trop x 3 no acute ischemic changes on EKG cont on tele unable to finish stress test today since his IV got infiltrated while he was getting nuclear med so will repeat stress test in AM Will start him on ASA will check FLP in AM (2) HTN (hypertension) Current Visit: No Status: Chronic Assessment and Plan: Stable BP with current meds (3) Hypothyroidism Current Visit: No Status: Chronic Assessment and Plan: cont home med Levothyroxine (4) PAF (paroxysmal atrial fibrillation) Current Visit: No Status: Chronic Assessment and Plan: rate controlled with Cardizem and Propafenone on Xarelto for anti coag (5) Tobacco abuse Current Visit: No Status: Chronic - Time Spent with Patient Total time spent is greater than 50% in coordination of care (as documented) at patient's floor/unit and/or counseling patient: Internal Medicine: Result - Labs CBC & Chem 7: 06/19/19 03:59 06/19/19 05:08 Labs: Short CBC 06/19/19 Range/Units 03:59 WBC 5.6 (4.3-11.1) K/mcL Hgb 9.1 L (12.9-16.9) g/dL Hct 29.8 L (37.5-50.1) % Plt Count 272 (140-400) K/mcL Neutrophils # 2.5 (1.6-8.9) K/mcL BMP 06/19/19 05:08 Sodium 137 Potassium 3.9 Chloride 105 Carbon Dioxide 25 BUN 15 Creatinine 1.10 Glucose 87 Calcium 8.7 Cardiac Enzymes 06/18/19 Range/Units 18:18 Troponin I < 0.03 (< 0.04) ng/mL - ABG Interpretation ABG results: PT/INR, D-dimer PT 10.5 Seconds (9.4-12.1) 06/19/19 03:59 Consult Discharge Plan - Plan Referrals: Gibran Lopes MD [Partnered Physician] - (Appointment has been requested. Our offices will call with an appointment time and date. If you do not hear from us, please call [phone] to make an appointment ) Светлана Alonzo CNP [Primary Care Provider] - (Appointment has been requested. Our offices will call with a time and date.) (1) Chest pain Qualifiers: Chest pain type: unspecified Qualified Code(s): R07.9 - Chest pain, unspecified (2) HTN (hypertension) Qualifiers: Hypertension type: essential hypertension Qualified Code(s): I10 - Essential (primary) hypertension (3) Hypothyroidism Qualifiers: Hypothyroidism type: acquired Qualified Code(s): E03.9 - Hypothyroidism, unspecified
--- NOTE | 2019-06-19 12:42 | Electrocardiograph Report ---
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
[2019-06-20] MEDS: Levalbuterol Neb 1.25 MG/3 ML IH PRN (05:03)
[2019-06-20] MEDS ORDERED: Regadenoson 0.4 MG/5 ML SYRINGE IVP ONE (06:10)
[2019-06-20] MEDS: Diltiazem CD (24hr) 240 MG CAPSULE PO SCH (08:00)
[2019-06-20] MEDS: Tiotropium 18 MCG inhalation IH SCH (08:11)
[2019-06-20] MEDS: (Roflumilast [Daliresp] 500 MCG) PO SCH (09:00)
[2019-06-20] MEDS: *HR* Rivaroxaban 10 MG TABLET PO SCH (09:00)
--- NOTE | 2019-06-20 13:10 | Cardiology Consult Note ---
<Tremaine Rivera - Last Filed: 06/20/19 14:17> Date of Encounter: 06/20/19 Time of Encounter: 13:09 Assessment and Plan (1) Chest pain Current Visit: Yes Status: Acute Patient with acute onset chest pain that began 06/18/19. Workup revealed negative troponins x 2, EKG w/o acute ST changes. Patient is currently comfortable, complaining of mild chest discomfort. Initial nuclear test at rest not performed secondary to IV infiltration. F/U stress test performed successfully and revealed possible perfusion defect of inferior wall vs artifact 2/2 bowel uptake. After further investigation, it was determined that findings seen in the inferior wall was likely bowel uptake with stress, no bowel uptake was present at rest. - Nuclear stress test with artifact 2/2 bowel uptake, unable to make definitive assessment at this time. - Re-evaluate for repeat nuclear stress test tomorrow vs medical management. - Consider adding Ranexa 500 mg BID if no significant ischemia present on repeat stress test. - Mg of 1.4, needs repletion. - Continue home statin, xarelto, propafenone, cardizem. - No evidence of A-fib or SVT at this time. Continue to monitor tele. Cardiology will continue to follow, further recommendations pending repeat st ress test. Thank you for the consult. Qualifiers: Chest pain type: unspecified Qualified Code(s): R07.9 - Chest pain, unspecified Discussion w patient/family: The assessment and plan as outlined above was discussed with the patient and/or family members who expressed understanding and agreement. All questions were answered. Thank you for involving us in the care of your patient. Please call with any questions. History of Present Illness Consult date: 06/20/19 Consult reason: Stress test abnormality Chief complaint: Chest pain History of present illness: Mr. Santos is a 69 year old male w/PMHx of COPD, A-fib, SVT, cardiac ablation x 2, loop recorder who presented to [facility] with complaints of chest pain. Reports acute episode of chest pain that began Sunday morning 06/18/19. Pain was felix cribed as sharp, intense, and radiated to the left arm and neck. Pain reported as "the worst pain ever." He also complained of diziness, lightheadedness at pain onset. Patient took his normal heart medication and drove himself to his scheduled cardiology appointment. The pain improved slightly and the patient was told to go to the ER. Patient went to ER briefly, went home, and returned later in the day with improved but continued pain. ED w/u revealed normal troponin, EKG in sinus rhythm, without acute ST T changes. He was given ASA, denied needing anything stronger for pain, and denied nitro because it gives him severe headaches. Patient was later admitted and worked up with nuclear stress test, echo. Initial stress test at rest not performed 2/2 IV infiltration. Repeat stress test revealed bowel uptake with stress, questionable inferior ischemia, but likely artifact. Cardiology consu lted for further evaluation. Currently, the patient is in NAD, comfortable. Denies chest pain, but endorses left sided chest "discomfort" described as a tightness and nervous feeling. No radiating pain, nausea, dizziness, fever, chills. Past Med Surg Social Fam HX - Past Medical History Medical history: atrial fibrillation, COPD, SVT Additional medical history: SMOKING Psychiatric history: no psych history - Past Surgical History Surgical History: herniorrhaphy Additional surgical history: ABLATION, Loop recorder, esophagus muscle repair - Social History Smoking Status: Current every day smoker Packs per day: 10 cigarettes a day Smokeless Tobacco Status: No Alcohol use: occasionally Drug use: none - Family History Mother Adopted: No Family Member Ethnicity: Non- Living Status: Father Age: 70 Family Member Ethnicity: Non- Hx Family Respiratory Disorders: Yes (Black lung) Medications and Allergies Gabapentin [Neurontin] 600 mg PO TID PRN 05/02/16 [History] Levothyroxine [Synthroid] 75 mcg PO 0630 05/02/16 [History] Omeprazole [PriLOSEC] 20 mg PO DAILY 05/02/16 [History] Tiotropium [Spiriva] 1 puff IH DAILY 05/02/16 [History] Diltiazem CD (24hr) [Cardizem CD] 240 mg PO DAILY 05/05/16 [History] Rivaroxaban [Xarelto] 20 mg PO DAILY #30 tablet 05/05/16 [Rx] Roflumilast [Daliresp] 500 mcg PO DAILY 06/16/16 [History] EPINEPHrine [Epipen] 0.3 mg IM ONCE PRN 01/17/18 [History] Propafenone HCl 300 mg PO Q8H 03/11/18 [History] Levalbuterol Neb [Xopenex Neb] 1.25 mg IH DAILY PRN 03/12/18 [History] Mirtazapine [Remeron] 15 mg PO HS 03/12/18 [History] Atorvastatin [Lipitor] 40 mg PO HS 06/19/19 [History] Ferrous Sulfate [Iron] 325 mg PO DAILY 06/19/19 [History] Levalbuterol [Xopenex INH] 2 puff IH Q6H PRN 06/19/19 [History] Allergy/AdvReac Type Severity Reaction Status Date / Time Cyclobenzaprine Allergy Mild Hives Verified 07/24/18 12:42 [From Flexeril] oxycodone [Oxycodone] Allergy Unknown Itching Verified 07/24/18 12:42 All Systems Review: The remainder of the systems were reviewed and are negative - Constitutional Constitutional: no chills, no fever(s), no headache(s), no weakness - EENT Eyes: no blurred vision, no loss of vision Nose, mouth and throat: no dysphagia, no throat swelling - Cardiovascular Cardiovascular: chest pain with exertion, dyspnea on exertion, lightheadedness (resolved), no diaphoresis, no irregular heart rhythm, no syncope - Respiratory Respiratory: no cough, no dyspnea, no wheezing - Gastrointestinal Gastrointestinal: other (no vomiting), no abdominal pain, no constipation, no diarrhea, no nausea - Genitourinary Genitourinary: no dysuria, no hematuria - Musculoskeletal Musculoskeletal: no abnormal gait, no muscle weakness - Integumentary Integumentary: no erythema, no rash - Neurological Neurological: no abnormal speech, no focal weakness, no syncope - Psychiatric Psychiatric: no anxiety, no depression - Hematological/Lymphatic Hematologic/Lymphatic: no easy bleeding, no easy bruising Physical Examination Vital Signs, Last 4 Hours Temp Pulse Resp BP Pulse Ox 06/20/19 11:16 98.2 F 73 16 117/76 92 General: Conversant, No Apparent Distress HEENT: Atraumatic, Normocephaly, Mucus Membranes Moist Neck: No JVD, Normal carotid pulses Cardiac: Reg Rate and Rhythm, Normal S1 and S2, No Murmur (tricuspid regurgitation likely obscured by loop recorder) Lungs: No Wheeze, Rales, Rhonchi, Other (Decreased breath sounds) Neuro: Alert and responsive, No focal deficits noted Abdomen: Soft, Non-Tender Skin: No rashes noted on visualized skin Musculoskeletal: No Chest Wall Tenderness Extremities: No Clubbing, No Cyanosis, No Edema, Normal Pulses Results 06/19/19 03:59 06/19/19 05:08 Consult Discharge Plan - Plan Referrals: Gibran Lopes MD [Partnered Physician] - (Appointment has been requested. Our offices will call with an appointment time and date. If you do not hear from us, please call [phone] to make an appointment ) Светлана Alonzo CNP [Primary Care Provider] - 06/26/19 11:00 am () Cardiac Rehab - Cardiac Rehab Cardiac Rehab: Phase I consult completed. Patient was educated on why Cardiac Rehabilitation is beneficial to his/her health. Participating in a cardiac rehabilitation can improve the following: strengthen your heart, improve ejection fraction, weight reduction, decrease cholesterol levels, lower blood pressure, lower blood sugar, improve stamina, and enhance self-image. If he/she has any questions, they were instructed to call [facility] at [phone]. < A - Last Filed: 06/20/19 15:05> Date of Encounter: 06/20/19 - Attending Attestation I have personally performed a face to face evaluation on this patient. I have reviewed and agree with the documented findings and care plan as documented by the resident. History and Exam by me shows: 69-year-old pleasant gentleman with history of paroxysmal afib, COPD, nonobstructive mild CAD diagnosed with a left heart catheterization in 2016 after an abnormal pharmacological nuclear stress test, presenting with atypical chest pain. Pharmacological nuclear stress test done today was suboptimal due to bowel uptake of radioisotope during stress imaging acquisition AAOX3 in NAD at the bedside Hemodynamically stable Cardiopulmonary exam revealed S1, S2, no murmur; clear lungs Rhythm reviewed - sinus rhythm, no acute ST T changes Echo preserved EF, mild TR Impression/plan: 1. Abnormal stress test - Recommend repeating stress images tomorrow; if no evidence of ischemia, will recommend medical management of chest pain. 2. CAD- mild disease left heart catheter 2016. Continue aspirin, statin, beta wilton. Aggressive risk factor modification advised including smoking cessation 3. Afib - rate controlled on Cardizem; on Xarelto 20mg daily Thanks for the consult, please call with questions. Kyle Odonnell MD [facility] Assessment and Plan Discussion w patient/family: The assessment and plan as outlined above was discussed with the patient and/or family members who expressed understanding and agreement. All questions were answered. Thank you for involving us in the care of your patient. Please call with any questions. History of Present Illness History of present illness: Mr. Santos is a 69 year old male All Systems Review: The remainder of the systems were reviewed and are negative Physical Examination Vital Signs, Last 4 Hours Temp Pulse Resp BP Pulse Ox 06/20/19 11:16 98.2 F 73 16 117/76 92 Results 06/19/19 03:59 06/19/19 05:08 Cardiac Rehab - Cardiac Rehab Cardiac Rehab: Phase I consult completed. Patient was educated on why Cardiac Rehabilitation is beneficial to his/her health. Participating in a cardiac rehabilitation can improve the following: strengthen your heart, improve ejection fraction, weight reduction, decrease cholesterol levels, lower blood pressure, lower blood sugar, improve stamina, and enhance self-image. If he/she has any questions, they were instructed to call [facility] at [phone].
--- NOTE | 2019-06-20 15:36 | Internal Med Progress Note ---
Hospitalist Progress Note - Encounter Date of Encounter: 06/20/19 Time of Encounter: 15:29 - Subjective Interval History: Mr. Santos is a 69-year-old man with a history of coronary artery disease, supraventricular tachycardia and paroxysmal atrial fibrillation who has undergone 2 ablation procedures in the past and currently has a loop recorder implanted pt presented to ER with chest pain / pressure. He continues to smoke about 10 cigarettes a day but reports adherence to his medications. His EKG revealed normal sinus rhythm with no acute ischemic changes. His last left heart catheterization was done in December 2015 which showed only mild non obst ructive CAD and a stress test done 3 months after that was unremarkable. He was admitted in the hospital and placed him on library monitor. He denied any active CP since y/d. Resting comfortably. He had his stress test done today. - Exam Vitals: Temp Pulse Resp BP Pulse Ox 98.2 F 73 16 117/76 92 06/20/19 11:16 06/20/19 11:16 06/20/19 11:16 06/20/19 11:16 06/20/19 11:16 Exam: Gen: Alert, awake, Oriented to time,place and person Chest: Diminished breath sounds B/L, No wheezing, No crackles, No rales Heart: S1S2+ RRR No murmurs Abd: Soft, NT, BS +, No organomegaly Ext: No edema, pulses are palpable, No calf tenderness Neuro : No acute focal neuro deficits noticed Skin: No rash. - Assessment and Plan (1) Chest pain Current Visit: Yes Status: Acute Assessment and Plan: so far negative trop x 3 no acute ischemic changes on EKG cont on tele His stress test came back is abnormal -Subdiaphragmagic activity obscures interpretation of the inferior wall. There is a partially fixed perfusion defect involving the mid/mid-distal inferior wall appearing worse during stress in which mild ischemia cannot be excluded. Will start him on ASA Reviewed his FLP - LDL @ 76 Consulted Card who recommend to start him on Ranexa, if pt's CP persists possible repeat Stress test in AM However if pt needs LHC, will d/c Xarelto for now NPO after mid night (2) HTN (hypertension) Current Visit: No Status: Chronic Assessment and Plan: Stable BP with current meds (3) Hypothyroidism Current Visit: No Status: Chronic Assessment and Plan: cont home med Levothyroxine (4) PAF (paroxysmal atrial fibrillation) Current Visit: No Status: Chronic Assessment and Plan: rate controlled with Cardizem and Propafenone Held Xarelto If he needed any procedure [facility] in AM (5) Tobacco abuse Current Visit: No Status: Chronic Assessment and Plan: Counseled to quit smoking - Time Spent with Patient Total time spent is greater than 50% in coordination of care (as documented) at patient's floor/unit and/or counseling patient: Internal Medicine: Result - Labs CBC & Chem 7: 06/19/19 03:59 06/19/19 05:08 - ABG Interpretation ABG results: PT/INR, D-dimer PT 10.5 Seconds (9.4-12.1) 06/19/19 03:59 - Impressions Impressions Echocardiogram 06/19/19 15:56 Impressions: LVEF 55-60%. Mild left ventricular diastolic dysfunction. Normal right ventricular structure and function. Mild-moderate tricuspid regurgitation. Mild pulmonary hypertension. Left Ventricular Wall Motion: Rest Echo Findings All wall segments showed normal motion. Findings: Study Quality * Technically adequate exam. ECG Findings * Normal sinus rhythm. Left Ventricle * LVEF 55-60%. * Normal LV chamber size, wall thickness and function. * Mild left ventricular diastolic dysfunction. Right Ventricle * Normal right ventricular structure and function. Left Atrium * Normal left atrial size. Right Atrium * Normal right atrial size. Aortic Valve * No aortic regurgitation. * Aortic valve not well visualized. * No aortic stenosis. Mitral Valve * Normal mitral valve structure. * No mitral stenosis. * Trace mitral regurgitation. Tricuspid Valve * Normal tricuspid valve structure. * Mild-moderate tricuspid regurgitation. * Estimated RA pressure is 8 mmHg. * Estimated RVSP is 42 mmHg. * Mild pulmonary hypertension. Pulmonic Valve * Pulmonic valve is not well visualized. * No pulmonic stenosis. * No pulmonic regurgitation. Pulmonary Artery * Pulmonary artery not well visualized. Aorta * Normally sized aortic root. Pericardium * There is no pericardial effusion present. Interatrial Septum * No evidence of PFO by color Doppler. IVC * The IVC is not dilated. * < 50% respiratory change. Consult Discharge Plan - Plan Referrals: Gibran Lopes MD [Partnered Physician] - (Appointment has been requested. Our offices will call with an appointment time and date. If you do not hear from us, please call [phone] to make an appointment ) Светлана Alonzo CNP [Primary Care Provider] - 06/26/19 11:00 am () (1) Chest pain Qualifiers: Chest pain type: unspecified Qualified Code(s): R07.9 - Chest pain, unspecified (2) HTN (hypertension) Qualifiers: Hypertension type: essential hypertension Qualified Code(s): I10 - Essential (primary) hypertension (3) Hypothyroidism Qualifiers: Hypothyroidism type: acquired Qualified Code(s): E03.9 - Hypothyroidism, unspecified
[2019-06-20] MEDS: Mirtazapine 15 MG TABLET PO SCH (20:31)
[2019-06-20] MEDS: Ranolazine 500 MG TAB.ER.12H PO SCH (20:31)
[2019-06-21] MEDS: Tiotropium 18 MCG inhalation IH SCH (07:38)
[2019-06-21 08:24] LABS: BUN/Creatinine Ratio 16 (6-26); Blood Urea Nitrogen 15 mg/dL (8-23); Calcium 8.7 mg/dL (8.6-10.3); Carbon Dioxide 25 mEq/L (23-29); Chloride 108 mEq/L (98-107); Glucose 87 mg/dL (70-105); Osmolality,Calculated 284 (280-300); Potassium 3.7 mEq/L (3.5-5.1); Sodium 137 mEq/L (136-145); eGFR For African Americans > 60 (> 60); eGFR For Non-African Americans > 60 (> 60)
--- NOTE | 2019-06-21 08:33 | Cardiology Progress Note ---
Date of Encounter: 06/21/19 Time of Encounter: 08:31 Assessment and Plan (1) Chest pain Current Visit: Yes Status: Acute Chest discomfort of unclear significance. ECG demonstrates sinus rhythm, serial enzymes negative. Stress test nondiagnostic due to bowel uptake obscuring visualization of the inferior segments. Patient scanned again last evening. Although the images are better, there is still bowel uptake obscuring visualization of the the mid to apical inferior segments. Prior LHC with mild CAD, but patient admits to poor risk factor modification. The patient and I reviewed his symptoms and options. We discussed medical therapy and outpatient follow-up vs [facility]. Patient states he has had ongoing intermittent episodes of chest discomfort and prefers LHC prior to discharge. We reviewed the risks, benefits, and alternatives to the procedure. Patient voiced understanding, wishes to proceed. All questions were answered. Plan for diagnostic cardiac catheterization on Sunday. Further recommendations to follow. Qualifiers: Chest pain type: unspecified Qualified Code(s): R07.9 - Chest pain, unspecified (2) PAF (paroxysmal atrial fibrillation) Current Visit: No Status: Chronic History of paroxysmal atrial fibrillation on Rythmol and Xarelto therapy. Will need to hold Xarelto Sunday night for LHC Sunday. Discussion w patient/family: The assessment and plan as outlined above was discussed with the patient and/or family members who expressed understanding and agreement. All questions were answered. Thank you for involving us in the care of your patient. Please call with any questions. Subjective Principal diagnosis: Chest discomfort Interval history: 70-year-old male who was admitted for evaluation of chest discomfort. Serial enzymes negative. ECG demonstrates sinus rhythm, no significant ST or T-wave changes. Stress test obtained, which was nondiagnostic due to increased GI uptake obscuring visualization of the inferior segments. Patient reports ongoing chest discomfort. Describes as substernal, no radiation, nausea, vomiting. Objective Vital Signs, Last 4 Hours Temp Pulse Resp BP Pulse Ox 06/21/19 07:40 16 91 06/21/19 06:47 98.1 F 77 16 117/74 91 General: Conversant, No Apparent Distress HEENT: Atraumatic, Normocephaly, Mucus Membranes Moist Neck: No JVD, Normal carotid pulses Cardiac: Reg Rate and Rhythm, Normal S1 and S2, No Murmur Lungs: Normal Breath Sounds, No Wheeze, Rales, Rhonchi Neuro: Alert and responsive, No focal deficits noted Abdomen: Soft, Non-Tender Skin: No rashes noted on visualized skin Musculoskeletal: No Chest Wall Tenderness Extremities: No Clubbing, No Cyanosis, No Edema Results 06/19/19 03:59 06/21/19 06:09 Lab Results 06/21/19 06:09 Sodium 137 Potassium 3.7 Chloride 108 H Carbon Dioxide 25 BUN 15 Creatinine 0.95 Glucose 87 Calcium 8.7 - Imaging and Cardiology Echo: pending - EKG Interpretation EKG results cardiology: personally reviewed Consult Discharge Plan - Plan Referrals: Gibran Lopes MD [Partnered Physician] - (Appointment has been requested. Our offices will call with an appointment time and date. If you do not hear from us, please call [phone] to make an appointment ) Светлана Alonzo CNP [Primary Care Provider] - 06/26/19 11:00 am () Cardiac Rehab - Cardiac Rehab Cardiac Rehab: Phase I consult completed. Patient was educated on why Cardiac Rehabilitation is beneficial to his/her health. Participating in a cardiac rehabilitation can improve the following: strengthen your heart, improve ejection fraction, weight reduction, decrease cholesterol levels, lower blood pressure, lower blood sugar, improve stamina, and enhance self-image. If he/she has any questions, they were instructed to call [facility] at [phone].
[2019-06-21] MEDS: Diltiazem CD (24hr) 240 MG CAPSULE PO SCH (09:05)
[2019-06-21] MEDS: Ranolazine 500 MG TAB.ER.12H PO SCH ×2 (09:05→20:00)
--- NOTE | 2019-06-21 14:46 | Internal Med Progress Note ---
Hospitalist Progress Note - Encounter Date of Encounter: 06/21/19 Time of Encounter: 14:38 - Subjective Interval History: Seen and examined at bedside. Patient is new to me, information obtained from chart review and patient report. Says he had uneventful night, has no complaints at time of my exam. He does continue to report intermittent chest pain and shortness of breath. - Exam Vitals: Temp Pulse Resp BP Pulse Ox 97.7 F 78 16 123/76 93 06/21/19 10:58 06/21/19 10:58 06/21/19 10:58 06/21/19 10:58 06/21/19 10:58 Exam: Gen: Alert, awake, Oriented to time,place and person Chest: Diminished breath sounds B/L, No wheezing, No crackles, No rales Heart: S1S2+ RRR No murmurs Abd: Soft, NT, BS +, No organomegaly Ext: No edema, pulses are palpable, No calf tenderness Neuro : No acute focal neuro deficits noticed Skin: No rash. - Assessment and Plan (1) Chest pain Current Visit: Yes Status: Acute Assessment and Plan: presented with persistent precordial chest pain. ACS rule out with negative serial troponins. EKG without acute ST changes. TTE with EF 55%, no wall motion abnormalities. Stress test showed a partially fixed perfusion defect wh ich is worse during stress. Plan for diagnostic cardiac catheterization on Saturday 06/23. (2) HTN (hypertension) Current Visit: No Status: Chronic Assessment and Plan: per hx. BP controlled. Continue home BP medication. Monitor BP and titrate PRN (3) PAF (paroxysmal atrial fibrillation) Current Visit: No Status: Chronic Assessment and Plan: per hx. Rate controlled. Continue home CCB, Rythmol. Stop Xarelto after dose on 06/21 in light of [facility] (4) Hypothyroidism Current Visit: No Status: Chronic Assessment and Plan: per hx. Cont home Levothyroxine (5) Tobacco abuse Current Visit: No Status: Chronic Assessment and Plan: Counseled to quit smoking DVT Prophylaxis: xarelto - Time Spent with Patient Total time spent is greater than 50% in coordination of care (as documented) at patient's floor/unit and/or counseling patient: Internal Medicine: Result - Labs CBC & Chem 7: 06/19/19 03:59 06/21/19 06:09 Labs: BMP 06/21/19 06:09 Sodium 137 Potassium 3.7 Chloride 108 H Carbon Dioxide 25 BUN 15 Creatinine 0.95 Glucose 87 Calcium 8.7 - ABG Interpretation ABG results: PT/INR, D-dimer PT 10.5 Seconds (9.4-12.1) 06/19/19 03:59 Consult Discharge Plan - Plan Referrals: Gibran Lopes MD [Partnered Physician] - (Appointment has been requested. Our offices will call with an appointment time and date. If you do not hear from us, please call [phone] to make an appointment ) Светлана Alonzo CNP [Primary Care Provider] - 06/26/19 11:00 am () (1) Chest pain Qualifiers: Chest pain type: unspecified Qualified Code(s): R07.9 - Chest pain, unspecified (2) HTN (hypertension) Qualifiers: Hypertension type: essential hypertension Qualified Code(s): I10 - Essential (primary) hypertension (4) Hypothyroidism Qualifiers: Hypothyroidism type: acquired Qualified Code(s): E03.9 - Hypothyroidism, unspecified
[2019-06-21] MEDS ORDERED: *HR* Rivaroxaban 10 MG TABLET PO ONE (14:50)
[2019-06-21] MEDS: Mirtazapine 15 MG TABLET PO SCH (20:00)
[2019-06-22] MEDS: Tiotropium 18 MCG inhalation IH SCH (07:58)
--- NOTE | 2019-06-22 10:51 | Cardiology Progress Note ---
Date of Encounter: 06/22/19 Time of Encounter: 09:40 Assessment and Plan (1) Chest pain Current Visit: Yes Status: Acute Chest discomfort of unclear significance. Somewhat atypical. ECG demonstrates sinus rhythm, serial enzymes negative. Stress test nondiagnostic due to bowel uptake obscuring visualization of the inferior segments. Patient re-scanned. Although the images are better, there is still bowel uptake obscuring visualization of the the mid to apical inferior segments. Prior [facility] with mild CAD in 2016. Multiple CRF and patient admits to poor risk factor modification. We discussed medical therapy and outpatient follow-up vs [facility]. Patient states he has had ongoing intermittent episodes of chest discomfort and prefers [facility] prior to discharge. [facility] R/B/A reviewed and he agrees to proceed as already planned. Qualifiers: Chest pain type: unspecified Qualified Code(s): R07.9 - Chest pain, unspecified (2) PAF (paroxysmal atrial fibrillation) Current Visit: No Status: Chronic History of PAF on Rythmol and Xarelto therapy. NSR. Will need to hold Xarelto Sunday for C Sunday. Discussion w patient/family: The assessment and plan as outlined above was discussed with the patient and/or family members who expressed understanding and agreement. All questions were answered. Thank you for involving us in the care of your patient. Please call with any questions. Subjective Principal diagnosis: Chest discomfort Interval history: No chest pain this morning. Resting comfortably. Objective Vital Signs, Last 4 Hours Temp Pulse Resp BP Pulse Ox 06/22/19 07:58 16 93 06/22/19 07:26 98.0 F 62 16 112/61 92 General: Conversant, No Apparent Distress HEENT: Atraumatic, Normocephaly, Mucus Membranes Moist Neck: No JVD, Normal carotid pulses Cardiac: Reg Rate and Rhythm, Normal S1 and S2, No Murmur Lungs: Normal Breath Sounds, No Wheeze, Rales, Rhonchi Neuro: Alert and responsive, No focal deficits noted Abdomen: Soft, Non-Tender Skin: No rashes noted on visualized skin Musculoskeletal: No Chest Wall Tenderness Extremities: No Clubbing, No Cyanosis, No Edema, Normal Pulses Results 06/19/19 03:59 06/21/19 06:09 - Imaging and Cardiology Stress Test: report reviewed Echo: report reviewed Consult Discharge Plan - Plan Referrals: Gibran Lopes MD [Partnered Physician] - (Appointment has been requested. Our offices will call with an appointment time and date. If you do not hear from us, please call [phone] to make an appointment ) Светлана Alonzo CNP [Primary Care Provider] - 06/26/19 11:00 am () Cardiac Rehab - Cardiac Rehab Cardiac Rehab: Phase I consult completed. Patient was educated on why Cardiac Rehabilitation is beneficial to his/her health. Participating in a cardiac rehabilitation can improve the following: strengthen your heart, improve ejection fraction, weight reduction, decrease cholesterol levels, lower blood pressure, lower blood sugar, improve stamina, and enhance self-image. If he/she has any questions, they were instructed to call [facility] at [phone].
[2019-06-22] MEDS: Ranolazine 500 MG TAB.ER.12H PO SCH ×2 (11:01→21:09)
[2019-06-22] MEDS: Diltiazem CD (24hr) 240 MG CAPSULE PO SCH (11:01)
--- NOTE | 2019-06-22 17:41 | Internal Med Progress Note ---
Hospitalist Progress Note - Encounter Date of Encounter: 06/22/19 Time of Encounter: 17:40 - Subjective Interval History: Seen and examined bedside. Patient said he had uneventful night. Still having intermittent shortness of breath gets worse with exertion however reports this is chronic and at baseline. No chest pain overnight. - Exam Vitals: Temp Pulse Resp BP Pulse Ox 97.7 F 71 16 118/74 92 06/22/19 15:05 06/22/19 15:05 06/22/19 15:05 06/22/19 15:05 06/22/19 15:05 Exam: Gen: Alert, awake, Oriented to time,place and person Chest: Diminished breath sounds B/L, No wheezing, No crackles, No rales Heart: S1S2+ RRR No murmurs Abd: Soft, NT, BS +, No organomegaly Ext: No edema, pulses are palpable, No calf tenderness Neuro : No acute focal neuro deficits noticed Skin: No rash. - Assessment and Plan (1) Chest pain Current Visit: Yes Status: Acute Assessment and Plan: presented with persistent precordial chest pain. ACS rule out with negative serial troponins. EKG without acute ST changes. TTE with EF 55%, no wall motion abnormalities. Stress test showed a partially fixed perfusion defect which is worse during stress. Plan for diagnostic cardiac catheterization on Saturday 06/23. (2) HTN (hypertension) Current Visit: No Status: Chronic Assessment and Plan: per hx. BP controlled. Continue home BP medication. Monitor BP and titrate PRN (3) PAF (paroxysmal atrial fibrillation) Current Visit: No Status: Chronic Assessment and Plan: per hx. Rate controlled. Continue home CCB, Rythmol. Stop Xarelto after dose on 06/21 in light of [facility] (4) Hypothyroidism Current Visit: No Status: Chronic Assessment and Plan: per hx. Cont home Levothyroxine (5) Tobacco abuse Current Visit: No Status: Chronic Assessment and Plan: Counseled to quit smoking - Time Spent with Patient Total time spent is greater than 50% in coordination of care (as documented) at patient's floor/unit and/or counseling patient: Internal Medicine: Result - Labs CBC & Chem 7: 06/19/19 03:59 06/21/19 06:09 - ABG Interpretation ABG results: PT/INR, D-dimer PT 10.5 Seconds (9.4-12.1) 06/19/19 03:59 Consult Discharge Plan - Plan Referrals: Gibran Lopes MD [Partnered Physician] - (Appointment has been requested. Our offices will call with an appointment time and date. If you do not hear from us, please call [phone] to make an appointment ) Светлана Alonzo CNP [Primary Care Provider] - 06/26/19 11:00 am () ____ (1) Chest pain Qualifiers: Chest pain type: unspecified Qualified Code(s): R07.9 - Chest pain, unspecified (2) HTN (hypertension) Qualifiers: Hypertension type: essential hypertension Qualified Code(s): I10 - Essential (primary) hypertension (4) Hypothyroidism Qualifiers: Hypothyroidism type: acquired Qualified Code(s): E03.9 - Hypothyroidism, u nspecified
[2019-06-22] MEDS: Mirtazapine 15 MG TABLET PO SCH (21:09)
[2019-06-23 01:31] LABS: Hematocrit 27.6 % (37.5-50.1); Hemoglobin 8.4 g/dL (12.9-16.9); Mean Corpuscular HGB Conc 30.4 g/dL (31.6-35.5); Mean Corpuscular Hemoglobin 23.3 pg (28.0-33.3); Mean Corpuscular Volume 76.7 fL (83.0-100.0); Mean Platelet Volume 9.4 fL (9.4-12.4); Platelet Count 290 K/mcL (140-400); White Blood Count 6.7 K/mcL (4.3-11.1)
[2019-06-23 01:51] LABS: Alanine Aminotransferase 8 Units/L (7-52); Albumin 3.5 g/dL (3.5-5.7); Albumin/Globulin Ratio 1.7 (1.1-2.2); Alkaline Phosphatase 35 Units/L (34-104); Aspartate Amino Transferase 10 Units/L (13-39); BUN/Creatinine Ratio 20 (6-26); Bilirubin,Total 0.2 mg/dL (0.3-1.0); Blood Urea Nitrogen 18 mg/dL (8-23); Calcium 8.3 mg/dL (8.6-10.3); Carbon Dioxide 24 mEq/L (23-29); Chloride 107 mEq/L (98-107); Globulin 2.1 g/dL (2.4-3.5); Glucose 112 mg/dL (70-105); Osmolality,Calculated 291 (280-300); Potassium 3.6 mEq/L (3.5-5.1); Sodium 139 mEq/L (136-145); Total Protein 5.6 g/dL (6.4-8.9); eGFR For African Americans > 60 (> 60); eGFR For Non-African Americans > 60 (> 60)
[2019-06-23] MEDS: Tiotropium 18 MCG inhalation IH SCH (07:28)
[2019-06-23] MEDS: Levalbuterol Neb 1.25 MG/3 ML IH PRN ×2 (07:30→21:35)
[2019-06-23] MEDS: Ranolazine 500 MG TAB.ER.12H PO SCH ×2 (09:18→20:58)
[2019-06-23] MEDS: Diltiazem CD (24hr) 240 MG CAPSULE PO SCH (09:19)
[2019-06-23] MEDS ORDERED: *HR* FentaNYL (PF) 100 MCG/2 ML VIAL ONE (16:35)
[2019-06-23] MEDS ORDERED: 0.9 % Sodium Chloride 2,000 ML ONE (16:36)
[2019-06-23] MEDS ORDERED: *HR* Midazolam HCl 2 MG/2 ML VIAL ONE (16:36)
[2019-06-23] MEDS ORDERED: Heparin 1,000 UNITS/500 mL 500 ML ONE (16:36)
[2019-06-23] MEDS ORDERED: Iopamidol 125 ML INFUS..BTL ONE (16:36)
[2019-06-23] MEDS ORDERED: *HR* Heparin 10,000 UNIT/10 ML VIAL ONE (16:36)
[2019-06-23] MEDS ORDERED: Nitroglycerin 1,000 MCG/10 ML VIAL IV ONE (16:37)
--- NOTE | 2019-06-23 17:01 | Internal Med Progress Note ---
Hospitalist Progress Note - Encounter Date of Encounter: 06/23/19 Time of Encounter: 17:01 - Subjective Interval History: This was seen and examined at bedside currently awaiting [facility] per cardiology denies any chest pain or shortness of breath at this time - Exam Vitals: Temp Pulse Resp BP Pulse Ox 98.2 F 73 18 113/71 94 06/23/19 10:55 06/23/19 10:55 06/23/19 10:55 06/23/19 10:55 06/23/19 10:55 Exam: Gen: Alert, awake, Oriented to time,place and person Chest: Diminished breath sounds B/L, No wheezing, No crackles, No rales Heart: S1S2+ RRR No murmurs Abd: Soft, NT, BS +, No organomegaly Ext: No edema, pulses are palpable, No calf tenderness Neuro : No acute focal neuro deficits noticed Skin: No rash. - Assessment and Plan (1) Chest pain Current Visit: Yes Status: Acute Assessment and Plan: presented with persistent precordial chest pain. ACS rule out with negative serial troponins. EKG without acute ST changes. TTE with EF 55%, no wall mo tion abnormalities. Stress test showed a partially fixed perfusion defect which is worse during stress. Plan for diagnostic cardiac catheterization on Saturday 06/23. 06/23 Pending [facility] per cardiology no chest pain hemodynamically stable this time (2) HTN (hypertension) Current Visit: No Status: Chronic Assessment and Plan: per hx. BP controlled. Continue home BP medication. Monitor BP and titrate PRN 06/23 BP stable cont home meds (3) PAF (paroxysmal atrial fibrillation) Current Visit: No Status: Chronic Assessment and Plan: per hx. Rate controlled. Continue home CCB, Rythmol. Stop Xarelto after dose on 06/21 in light of [facility] 06/23 Will resume Xarelto after [facility] continue home CCB and Rythmol-currently rate controlled (4) Hypothyroidism Current Visit: No Status: Chronic Assessment and Plan: per hx. Cont home Levothyroxine (5) Tobacco abuse Current Visit: No Status: Chronic Assessment and Plan: Counseled to quit smoking DVT Prophylaxis: xarelto - Time Spent with Patient Total time spent is greater than 50% in coordination of care (as documented) at patient's floor/unit and/or counseling patient: Internal Medicine: Result - Labs CBC & Chem 7: 06/23/19 01:09 06/23/19 01:09 Labs: Short CBC 06/23/19 Range/Units 01:09 WBC 6.7 (4.3-11.1) K/mcL Hgb 8.4 L (12.9-16.9) g/dL Hct 27.6 L (37.5-50.1) % Plt Count 290 (140-400) K/mcL BMP 06/23/19 01:09 Sodium 139 Potassium 3.6 Chloride 107 Carbon Dioxide 24 BUN 18 Creatinine 0.89 Glucose 112 H Calcium 8.3 L Liver Function 06/23/19 Range/Units 01:09 Total Bilirubin 0.2 L (0.3-1.0) mg/dL AST 10 L (13-39) Units/L ALT 8 (7-52) Units/L Alkaline Phosphatase 35 (34-104) Units/L Albumin 3.5 (3.5-5.7) g/dL - ABG Interpretation ABG results: PT/INR, D-dimer PT 10.5 Seconds (9.4-12.1) 06/19/19 03:59 Consult Discharge Plan - Plan Referrals: Gibran Lopes MD [Partnered Physician] - (Appointment has been requested. Our offices will call with an appointment time and date. If you do not hear from us, please call [phone] to make an appointment ) Светлана Alonzo CNP [Primary Care Provider] - 06/26/19 11:00 am () (1) Chest pain Qualifiers: Chest pain type: unspecified Qualified Code(s): R07.9 - Chest pain, unspecified (2) HTN (hypertension) Qualifiers: Hypertension type: essential hypertension Qualified Code(s): I10 - Essential (primary) hypertension (4) Hypothyroidism Qualifiers: Hypothyroidism type: acquired Qualified Code(s): E03.9 - Hypothyroidism, unspecified
--- NOTE | 2019-06-23 17:24 | Invasive Diagnostic Lab Proc ---
Name: Barrie Santos Date of Study: 06/23/2019 Date: 1950 Ht: 75.0in Medical Record#: [id number] Age: 69 Wt: 183.42lb Gender: Male BSA: 2.12 Order #: [id number] BMI: 22.93 Physicians Procedure Physician: Natalya Richards MD Referring MD: Referring MD: Staff Name Position Time In Augustine Luna RN Monitor 04:46 PM Ronen Zavala RN Painter Interior Finish 04:46 PM Carmen Morales RT (R) Scrub 04:46 PM Procedures Performed Procedure L HRT ARTERY/VENTRICLE ANGIO Pre-Procedure Checklist Informed consent is complete signed and on chart. H&P is on chart. ID band is on and ID verified with patient. Patient NPO for procedure The procedure was described for the patient and questions were answered. Blood Pressure: 115/58 ECG is on chart. Plan of Care Patient will tolerate the procedure without complications. Adequate level of comfort will be maintained. Hemodynamics will remain stable Patient will recover from procedure without complications. Respiratory function will be maintained. Cardiac rhythm will remain stable. Patient temperature will be maintained. Patient and/or family have verbalized understanding of the procedure. Patient Education Chief Complaint/Reason for Test: Cardiac Cath Developmental Category: Adult (18-64 years) Developmentally Appropriate for Age: Yes Learning Barriers: None Education Needs: Procedure Education Method: Verbal Information Taught: Cardiac Cath Educational Evaluation: Able to repeat information Intravenous Access Time IV Size Location DC'd Fluid/Drip Rate Units RN 18g 1 /" Patent On Arrival Lt Antecubital 0.9NaCl 50 ml/hr Ventura Cohn RN Allergies flexeril oxycodone Vital Signs Time BP (mmHg) HR (bpm) O2 Sat. RR (bpm) LOC 115 / 58 71 91 % 16 5 = Fully awake and oriented or at pre-proc level 04:46 PM / % 5 = Fully awake and oriented or at pre-proc level 04:46 PM / % 4 = Oriented but drowsy 04:50 PM 149 / 79 56 96 % 16 04:55 PM 147 / 80 57 98 % 11 05:00 PM 149 / 75 57 97 % 21 05:05 PM 134 / 75 59 96 % 17 05:10 PM 135 / 74 56 95 % 14 Procedural Medications Time Medication Dose Units Method Given By 04:46 PM Oxygen 2 L/min nasal cannula Ronen Zavala RN 04:50 PM Versed 1 mg Intravenous Ronen Zavala RN 04:50 PM Fentanyl 50 mcg Intravenous Ronen Zavala RN 05:00 PM Versed 0.5 mg Intravenous Ronen Zavala RN 05:00 PM Fentanyl 25 mcg Intravenous Ronen Zavala RN 05:01 PM Lidocaine 2% 20 ml Subcutaneous Natalya Richards MD ASA Classification: CLASS II- Mild systemic disease (i.e. well-controlled diabetes, hypertension, asthma, cigarette smoking) Niko Score Preprocedure Postprocedure Activity 2- Moves 4 extremities sustained head lift Activity 2- Moves 4 extremities sustained head lift Circulation 2- SBP +/= 20 points of pre-anesthetic level Circulation 2- SBP +/= 20 points of pre-anesthetic level Consciousness 2- Awake and alert oriented x 3 Consciousness 2- Awake and alert oriented x 3 O2 Saturation 2- Able to maintain O2 satruation of 92% on room air O2 Saturation 2- Able to maintain O2 satruation of 92% on room air Respiratory 2- Able to deep breathe and cough well Respiratory 2- Able to deep breathe and cough well Total Score 10 Total Score 10 Contrast Agent: Isovue Diagnostic Contrast: 50 ml Total Contrast: 50 ml Fluoro Dose: 12 mGy Procedure Log Time Note Enter By 04:40 PM Pt arrived to electroplating laborer 1 at 16:42 oparker 04:40 PM CathStat 04:42 PM Physician arrived 16:42 oparker 04:42 PM Meet and greet completed oparker 04:43 PM Sign in performed according to hospital policy. Informed consent was obtained. oparker 04:45 PM Procedure start 16:45 oparker 04:46 PM Augustine Luna RN Position: Monitor Time in: 16:46 oparker 04:46 PM Ronen Zavala RN Position: Painter Interior Finish Time in: 16:46 oparker 04:46 PM Carmen Morales RT (R) Position: Scrub Time in: 16:46 oparker 04:46 PM Patient charges- Angio tray pack, Navilyst 3mm J, Pulse Oximetry and ACIST tubing and transducer oparker 04:46 PM Time: 16:46 Oxygen on at 2 L/min per nasal cannula by Ronen Zavala RN 04:46 PM Time: 16:46 Patient comfortable and pain free: Yes oparker 04:46 PM Time: 16:46LOC: 5 = Fully awake and oriented or at pre-proc level oparker 04:48 PM Vitals capture started with the following parameters, Patient=Adult, Interval=5 min, Initial Fqgctntf=352 mmHg, Deflation Rate=5 mmHg, Cuff placed on Left Arm 04:49 PM Vitals capture started with the following parameters, Patient=Adult, Interval=5 min, Initial Dpvxhmxt=354 mmHg, Deflation Rate=5 mmHg, Cuff placed on Left Arm 04:49 PM ASA Class CLASS II- Mild systemic disease (i.e. well-controlled diabetes, hypertension, asthma, cigarette smoking) oparker 04:50 PM Time: 16:50 Versed 1 mg Intravenous Given by Ronen Zavala RN 04:50 PM HR=56 bpm, SKTK=987/79 mmhg, SpO2=96.0 %, Resp=16 B/min 04:50 PM Time: 16:50 Fentanyl 50 mcg Intravenous Given by Ronen Zavala RN oparlincoln 04:51 PM Recorded ECG: HR=58 Condition=Condition 1 04:54 PM Pressure channel 2 zeroed. 04:55 PM HR=57 bpm, HKDT=271/80 mmhg, SpO2=98.0 %, Resp=11 B/min 04:59 PM Time out was performed according to hospital policy. Conscious sedation and anesthesia was achieved (see medication log with in this report above) oparker 05:00 PM HR=57 bpm, XFHR=318/75 mmhg, SpO2=97.0 %, Resp=21 B/min 05:00 PM Time: 17:00 Versed 0.5 mg Intravenous Given by Ronen Zavala RN 05:00 PM Time: 17:00 Fentanyl 25 mcg Intravenous Given by Ronen Zavala RN 05:01 PM Time: 17:01 20 ml Lidocaine 2% to right groin Subcutaneous Given by MD michael Lopez 05:01 PM Micro-Introducer Kit utilized for sheath placement oparker 05:01 PM Access obtained by percutaneous puncture. 6Fr 10cm Terumo [place] sheath placed in right Femoral artery. [id number] oparker 05:01 PM Time: 16:46LOC: 4 = Oriented but drowsy oparker 05:01 PM Time: 16:46 Patient comfortable and pain free: Yes oparker 05:02 PM 5Fr FR 4 catheter inserted over the wire DN oparker 05:03 PM 05:03 PM 0.035 145cm Navilyst 3mmJ wire [id number] oparker 05:03 PM RCA angiography performed in multiple views. oparker 05:04 PM Catheter removed oparker 05:04 PM 5Fr FL 4 catheter inserted over the wire DN oparker 05:04 PM 05:05 PM 05:05 PM LCA angiography performed in multiple views. oparker 05:06 PM 5Fr Pigtail catheter inserted over the wire DN oparker 05:07 PM 05:07 PM Catheter crossed the aortic valve and was selectively placed in the left ventricle. Pressures recorded on pullback for left heart catheterization. oparker 05:07 PM 05:08 PM Catheter removed oparker 05:08 PM Procedure completed at 17:08 06/23/2019 oparker 05:08 PM Did you address YOUNG flow and Dominance? YesCoronary Dominance: right oparker 05:09 PM Sign out completed: Radiation Dose 86.30 mGy, 12 Gy/cm2 Fluoro Time: 1.6 Isovue 370 - 200ml contrast 50 ml given by Natalya Richards MD. Complications: None. 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 Sedation minutes 18. Cardiac Rehab Consult needed: No. Confirmed administered medications: Yes oparker 05:09 PM Isovue 370 - 200ml,1 Bottle(s) used. oparker 05:09 PM Arterial sheath pulled, Angio-seal closure device used and was Successful [id number] S/N. oparker 05:09 PM Estimated Blood Loss: minimal oparker 05:10 PM 05:10 PM Post ECG Sinus Bradycardia oparker 05:10 PM Post Blood Pressure 135/74 oparker 05:10 PM 17:10 Post Pulses Bilateral DP 1+ oparker 05:10 PM Information taught Cardiac Cath and Angioseal oparker 05:10 PM Education needs Procedure, Plan of Care, and Disease Process oparker 05:10 PM Learning barriers :None oparker 05:10 PM Education Methods Verbal oparker 05:10 PM Education evaluation Able to repeat information oparker 05:11 PM Site status No bleeding/ No Hematoma - Rt Groin as reported by Carmen Morales RT (R) at 17:11 oparker 05:11 PM Opsite applied oparker 05:11 PM Complications: None oparker 05:13 PM Report given to Jessica MORENO Pt taken to Room #41. 17:13 oparker 05:14 PM No family oparker 05:14 PM Patient out of room: 17:14 oparker Complications Complication None None Hemodynamics Pressures Site Systolic/A Wave Diastolic/V Wave Mean AO 127 57 86 AO 128 60 86 LV 132 -1 10 LV 141 -3 9 AO 134 -11 81 Post Procedure Information Blood Pressure: 135/74 mmHg Rhythm: Sinus Bradycardia Post procedural instructions were given Closure Device Time Device Success/Fail 06/23/2019 5:12:00 PM Angio-Seal VIP Successful Site Checks Time Location Status Staff Sheath In? Note 05:11 PM Rt Groin No bleeding/ No Hematoma Carmen Morales RT (R) Pulses Time Site Pre-Procedure Post-Procedure Note Bilateral DP & PT 2+ Bilateral radial 2+ 5:10:00 PM Bilateral DP 1+ Updated by Augustien Luna RN on 06/23/2019 5:16:13 PM electronically signed on 06/23/2019 5:16:41 PM with status of Final
[2019-06-23] MEDS: Mirtazapine 15 MG TABLET PO SCH (20:57)
[2019-06-24 05:12] LABS: Hemoglobin 8.7 g/dL (12.9-16.9); Mean Corpuscular HGB Conc 31.1 g/dL (31.6-35.5); Mean Corpuscular Hemoglobin 23.3 pg (28.0-33.3); Mean Corpuscular Volume 75.1 fL (83.0-100.0); Mean Platelet Volume 9.1 fL (9.4-12.4); Platelet Count 283 K/mcL (140-400); Red Blood Count 3.73 M/mcL (4.19-5.50); Red Cell Distribution Width 20.1 % (11.5-14.5); White Blood Count 5.5 K/mcL (4.3-11.1)
[2019-06-24 05:31] LABS: Alanine Aminotransferase 9 Units/L (7-52); Albumin 3.4 g/dL (3.5-5.7); Albumin/Globulin Ratio 1.6 (1.1-2.2); Alkaline Phosphatase 36 Units/L (34-104); Aspartate Amino Transferase 12 Units/L (13-39); BUN/Creatinine Ratio 15 (6-26); Bilirubin,Total 0.2 mg/dL (0.3-1.0); Blood Urea Nitrogen 12 mg/dL (8-23); Calcium 8.3 mg/dL (8.6-10.3); Carbon Dioxide 25 mEq/L (23-29); Chloride 107 mEq/L (98-107); Globulin 2.1 g/dL (2.4-3.5); Glucose 79 mg/dL (70-105); Osmolality,Calculated 289 (280-300); Potassium 3.6 mEq/L (3.5-5.1); Sodium 140 mEq/L (136-145); Total Protein 5.5 g/dL (6.4-8.9); eGFR For African Americans > 60 (> 60); eGFR For Non-African Americans > 60 (> 60)
[2019-06-24 06:47] VITALS: BP 119/63
--- NOTE | 2019-06-24 07:49 | Event Note ---
Date of Encounter: 06/24/19 Time of Encounter: 07:30 - Cardiology Event Note C with normal coronaries. No intervention. Consider non cardiac cause. Can d/c ranexa. Continue risk factor modification. F/u with PCP. Cardiology will sign off.
--- NOTE | 2019-06-24 07:55 | Discharge Summary ---
- NOTES TO OUTPATIENT PROVIDER Notes to Outpatient Provider: Underwent LHC which did show normal coronaries- cardiology recommending discontinuing Ranexa per cards recommendations Date of Encounter: 06/24/19 Time of Encounter: 07:51 - Discharge Diagnosis (1) Chest pain Priority: Primary Status: Acute Qualifiers: Chest pain type: unspecified Qualified Code(s): R07.9 - Chest pain, unspecified (2) HTN (hypertension) Priority: Secondary Status: Chronic Qualifiers: Hypertension type: essential hypertension Qualified Code(s): I10 - Essential (primary) hypertension (3) PAF (paroxysmal atrial fibrillation) Priority: Secondary Status: Chronic (4) Hypothyroidism Priority: Secondary Status: Chronic Qualifiers: Hypothyroidism type: acquired Qualified Code(s): E03.9 - Hypothyroidism, unspecified (5) Tobacco abuse Priority: Secondary Status: Chronic Hospital course: Mr. Santos is a 69 year old male past history COPD tribulation SVT cardiac ablation 2 loop recorder -presented to [facility] with complaints of chest pain that began on 06/18/19 prescription pain sharp intense radiating to his left arm and neck with associated symptoms of dizziness lightheadedness. He went to a cardiology appointment and was advised to go to the ER troponins were negative 3 EKG with sinus rhythm with no acute ST-T wave abnormalities was given aspirin and denied nitroglycerin he did undergo a nuclear stress test and echo however initial stress test at rest was not performed due to IV infiltration and a repeat stress test revealed bowel uptake with stress and questionable inferior ischemia cardiology was consulted and underwent LHC which did reveal normal coronaries. Patient was placed on Ranexa during this admission and cardiology recommending discontinuation and to continue with risk factor modification. Patient will follow-up with primary care provider as an outpatient currently patient has denied any chest pain overnight and is hemodynamically stable he is ready for discharge. - Time Spent with Patient Total time spent providing and/or coordinating discharge services: - Discharge Medications Prescriptions: New Aspirin 81 mg PO DAILY #30 tab.chew Continued Gabapentin [Neurontin] 600 mg PO TID PRN PRN Reason: Pain Levothyroxine [Synthroid] 75 mcg PO 0630 Tiotropium [Spiriva] 1 puff IH DAILY Omeprazole [PriLOSEC] 20 mg PO DAILY Diltiazem CD (24hr) [Cardizem CD] 240 mg PO DAILY Rivaroxaban [Xarelto] 20 mg PO DAILY #30 tablet Roflumilast [Daliresp] 500 mcg PO DAILY EPINEPHrine [Epipen] 0.3 mg IM ONCE PRN PRN Reason: Anaphylaxis Propafenone HCl 300 mg PO Q8H Mirtazapine [Remeron] 15 mg PO HS Levalbuterol Neb [Xopenex Neb] 1.25 mg IH DAILY PRN PRN Reason: Shortness Of Breath Atorvastatin [Lipitor] 40 mg PO HS Ferrous Sulfate [Iron] 325 mg PO DAILY Levalbuterol [Xopenex INH] 2 puff IH Q6H PRN PRN Reason: Shortness Of Breath Home Medications: Gabapentin [Neurontin] 600 mg PO TID PRN 05/02/16 [History] Levothyroxine [Synthroid] 75 mcg PO 30 05/02/16 [History] Omeprazole [PriLOSEC] 20 mg PO DAILY 05/02/16 [History] Tiotropium [Spiriva] 1 puff IH DAILY 05/02/16 [History] Diltiazem CD (24hr) [Cardizem CD] 240 mg PO DAILY 05/05/16 [History] Rivaroxaban [Xarelto] 20 mg PO DAILY #30 tablet 05/05/16 [Rx] Roflumilast [Daliresp] 500 mcg PO DAILY 06/16/16 [History] EPINEPHrine [Epipen] 0.3 mg IM ONCE PRN 01/17/18 [History] Propafenone HCl 300 mg PO Q8H 03/11/18 [History] Levalbuterol Neb [Xopenex Neb] 1.25 mg IH DAILY PRN 03/12/18 [History] Mirtazapine [Remeron] 15 mg PO HS 03/12/18 [History] Atorvastatin [Lipitor] 40 mg PO HS 06/19/19 [History] Ferrous Sulfate [Iron] 325 mg PO DAILY 06/19/19 [History] Levalbuterol [Xopenex INH] 2 puff IH Q6H PRN 06/19/19 [History] Aspirin 81 mg PO DAILY #30 tab.chew 06/24/19 [Rx] Allergies/Adverse Reactions: Allergy/AdvReac Type Severity Reaction Status Date / Time Cyclobenzaprine Allergy Mild Hives Verified 07/24/18 12:42 [From Flexeril] oxycodone [Oxycodone] Allergy Unknown Itching Verified 07/24/18 12:42 Date of admission: 06/21/19 14:35 Primary care physician: Светлана Alonzo CNP Consults: 06/20/19 12:27 Consult to Cardiology [CONS] Routine Comment: Consulting Provider: Cardiology Yeny Reason for Consult: Abnormal stress test Time Notified: 12:28 Call Completed: Yes Discharging clinician: Maricel Roper Anticipated date of discharge: 06/24/19 - Constitutional Vitals: Temp Pulse Resp BP Pulse Ox 98.2 F 63 16 119/63 94 06/24/19 06:45 06/24/19 06:45 06/24/19 06:45 06/24/19 06:45 06/24/19 06:45 Exam: Gen: Alert, awake, Oriented to time,place and person Chest: Diminished breath sounds B/L, No wheezing, No crackles, No rales Heart: S1S2+ RRR No murmurs Abd: Soft, NT, BS +, No organomegaly Ext: No edema, pulses are palpable, No calf tenderness Neuro : No acute focal neuro deficits noticed Skin: No rash. - Patient Status Disposition: Home, Self-Care Condition: Fair Functional capacity at discharge: independent ambulation - Discharge Instructions Follow Up With: Gibran Lopes MD [Partnered Physician] - (Appointment has been requested. Our offices will call with an appointment time and date. If you do not hear from us, please call [phone] to make an appointment ) Светлана Alonzo CNP [Primary Care Provider] - 06/26/19 11:00 am () - Diet and Activity Activity: increase activity as tolerated Diet: advance to your usual diet
[2019-06-24] MEDS: Ranolazine 500 MG TAB.ER.12H PO SCH (08:06)
[2019-06-24] MEDS: Diltiazem CD (24hr) 240 MG CAPSULE PO SCH (08:07)
[2019-06-24] MEDS: Tiotropium 18 MCG inhalation IH SCH (08:08)
--- NOTE | 2019-06-24 12:21 | Electrocardiograph Report ---
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
== END 2019-06-24 09:21 | disposition home or self-care (01) | DRG 287 ==
LOC: 3BNU 17:47 → EMEROOARM 17:47 → SUATTDRO 20:33 → 3BNU 21:00
PROVIDERS: ADMIT Internal Medicine; ATTEND Family Medicine

== ENCOUNTER 2019-12-28 14:18 | Inpatient (IN) ==
[2019-12-28 14:47] LABS: Hematocrit 35.5 % (37.5-50.1); Immature Granulocytes % 0.3 % (0-4); Mean Corpuscular Hemoglobin 24.1 pg (28.0-33.3); Mean Corpuscular Volume 77.9 fL (83.0-100.0); Monocytes % 4.3 %; Platelet Count 285 K/mcL (140-400); Red Blood Count 4.56 M/mcL (4.19-5.50); Red Cell Distribution Width 26.6 % (11.5-14.5); Segmented Neutrophils % 84.1 %; White Blood Count 15.2 K/mcL (4.3-11.1)
[2019-12-28 14:48] LABS: Basophils # 0.1 K/mcL (0.0-0.2); Basophils % 0.3 %; Eosinophils # 0.2 K/mcL (0.0-0.6); Lymphocytes # 1.5 K/mcL (0.6-4.6); Monocytes # 0.7 K/mcL (0.0-1.3); Neutrophils # 12.8 K/mcL (1.6-8.9)
[2019-12-28] MEDS ORDERED: Azithromycin 250 MG TABLET PO ONE (15:08)
[2019-12-28 15:09] LABS: Anisocytosis 2+ (Not Present); INR 1.1; Platelet Estimate Normal (Normal); Prothrombin Time 12.3 Seconds (9.4-12.1)
[2019-12-28 15:10] LABS: BUN/Creatinine Ratio 15 (6-26); Blood Urea Nitrogen 13 mg/dL (8-23); Calcium 8.7 mg/dL (8.6-10.3); Carbon Dioxide 20 mEq/L (23-29); Chloride 99 mEq/L (98-107); Glucose 72 mg/dL (70-105); Osmolality,Calculated 271 (280-300); Sodium 131 mEq/L (136-145); eGFR For African Americans > 60 (> 60); eGFR For Non-African Americans > 60 (> 60)
[2019-12-28 15:12] LABS: Activated Partial Thrombo Time 29.5 Seconds (26.0-36.0); Troponin I < 0.03 ng/mL (< 0.04)
[2019-12-28] MEDS ORDERED: 0.9 % Sodium Chloride 1,000 ML IVC ONE (15:25)
[2019-12-28 15:53] LABS: Ferritin 27 ng/mL (20-250)
[2019-12-28] MEDS ORDERED: Gabapentin 300 MG CAPSULE PO PRN (16:47)
[2019-12-28] MEDS ORDERED: Levalbuterol Neb 1.25 MG/3 ML IH PRN (16:47)
[2019-12-28] MEDS ORDERED: MOM Conc 10 ML UD.LIQ PO PRN (16:48)
[2019-12-28] MEDS ORDERED: Ondansetron 4 MG/2 ML VIAL IVP PRN (16:48)
[2019-12-28] MEDS ORDERED: *HR* Promethazine 25 MG/ML VIAL IVP PRN (16:48)
[2019-12-28] MEDS ORDERED: Acetaminophen 325 MG TABLET PO PRN (16:48)
[2019-12-28] MEDS ORDERED: Naloxone 0.4 MG/ML INJ IVP PRN (16:48)
[2019-12-28] MEDS ORDERED: Mag Hydrox/Al Hydrox/Simeth 30 ML UDC PO PRN (16:48)
[2019-12-28] MEDS ORDERED: cefTRIAXone 2,000 MG in 0.9 % Sodium Chloride Mini Bag 100 ML IVPB SCH (17:00)
[2019-12-28 18:33] LABS: Adenovirus Not Detected (Not Detect); Bordetella Pertussis Not Detected (Not Detect); Chlamydophila pneumoniae Not Detected (Not Detect); Coronavirus 229E Not Detected (Not Detect); Coronavirus HKU1 Not Detected (Not Detect); Coronavirus NL63 Not Detected (Not Detect); Coronavirus OC43 Not Detected (Not Detect); Human Metapneumovirus Not Detected (Not Detect); Human Rhinovirus/Enterovirus Not Detected (Not Detect); Influenza A Subtype 2009 H1 Not Detected (Not Detect); Influenza B Not Detected (Not Detect); Mycoplasma pneumoniae Not Detected (Not Detect); Parainfluenza Virus 1 Not Detected (Not Detect); Parainfluenza Virus 2 Not Detected (Not Detect); Parainfluenza Virus 3 Not Detected (Not Detect); Parainfluenza Virus 4 Not Detected (Not Detect); Respiratory Syncytial Virus Not Detected (Not Detect)
[2019-12-28 19:14] LABS: Influenza A PCR Negative (Negative); Influenza B PCR Negative (Negative)
[2019-12-28] MEDS ORDERED: Morphine Sulfate 2 MG/ML SYRINGE IVP ONE (19:26)
[2019-12-28] MEDS: Mirtazapine 15 MG TABLET PO SCH (21:14)
[2019-12-29] MEDS: Levalbuterol 1 PUFF INHALER IH PRN (01:26)
[2019-12-29 06:34] LABS: Basophils % 0.3 %; Eosinophils # 0.1 K/mcL (0.0-0.6); Eosinophils % 1.3 %; Hematocrit 32.3 % (37.5-50.1); Immature Granulocytes % 0.6 % (0-4); Lymphocytes # 1.3 K/mcL (0.6-4.6); Lymphocytes % 12.2 %; Mean Corpuscular HGB Conc 29.7 g/dL (31.6-35.5); Mean Corpuscular Hemoglobin 23.6 pg (28.0-33.3); Mean Corpuscular Volume 79.6 fL (83.0-100.0); Monocytes # 0.4 K/mcL (0.0-1.3); Platelet Count 249 K/mcL (140-400); Red Blood Count 4.06 M/mcL (4.19-5.50); Red Cell Distribution Width 26.9 % (11.5-14.5); Segmented Neutrophils % 81.6 %; White Blood Count 10.7 K/mcL (4.3-11.1)
[2019-12-29 06:35] LABS: Hemoglobin 9.6 g/dL (12.9-16.9); Neutrophils # 8.7 K/mcL (1.6-8.9)
[2019-12-29 06:51] LABS: BUN/Creatinine Ratio 15 (6-26); Blood Urea Nitrogen 12 mg/dL (8-23); Calcium 8.6 mg/dL (8.6-10.3); Carbon Dioxide 23 mEq/L (23-29); Chloride 104 mEq/L (98-107); Glucose 86 mg/dL (70-105); Osmolality,Calculated 279 (280-300); Potassium 4.2 mEq/L (3.5-5.1); Sodium 135 mEq/L (136-145); eGFR For African Americans > 60 (> 60); eGFR For Non-African Americans > 60 (> 60)
[2019-12-29 07:17] LABS: Anisocytosis 1+ (Not Present); Platelet Estimate Normal (Normal)
[2019-12-29] MEDS: *HR* Rivaroxaban 10 MG TABLET PO SCH (08:27)
[2019-12-29] MEDS: Magnesium Oxide 400 MG TABLET PO SCH (08:27)
[2019-12-29] MEDS: Aspirin 81 MG TAB.CHEW PO SCH (08:27)
[2019-12-29] MEDS ORDERED: Ampicillin/Sulbactam 3,000 MG in 0.9 % Sodium Chloride 100 ML IVPB SCH (08:35)
[2019-12-29] MEDS ORDERED: Ampicillin/Sulbactam 3,000 MG in 0.9 % Sodium Chloride Mini Bag 100 ML IVPB SCH (09:00)
[2019-12-29] MEDS ORDERED: cefTRIAXone 2,000 MG in 0.9 % Sodium Chloride Mini Bag 100 ML IVPB SCH (09:00)
[2019-12-29] MEDS: Tiotropium 18 MCG inhalation IH SCH (10:02)
[2019-12-29] MEDS: Ampicillin/Sulbactam 3,000 MG in 0.9 % Sodium Chloride Mini Bag 100 ML IVPB SCH ×2 (10:03→14:10)
[2019-12-29] MEDS: predniSONE 20 MG TABLET PO SCH (14:11)
[2019-12-29] MEDS ORDERED: Azithromycin 500 MG in 0.9 % Sodium Chloride 250 ML IVPB SCH (15:00)
[2019-12-29] MEDS: Mirtazapine 15 MG TABLET PO SCH (22:01)
[2019-12-30] MEDS: Ampicillin/Sulbactam 3,000 MG in 0.9 % Sodium Chloride Mini Bag 100 ML IVPB SCH ×6 (01:06→20:34)
[2019-12-30 04:53] LABS: Basophils % 0.1 %; Eosinophils % 0.1 %; Hematocrit 31.3 % (37.5-50.1); Hemoglobin 9.6 g/dL (12.9-16.9); Immature Granulocytes % 0.4 % (0-4); Lymphocytes # 1.1 K/mcL (0.6-4.6); Lymphocytes % 14.4 %; Mean Corpuscular HGB Conc 30.7 g/dL (31.6-35.5); Mean Corpuscular Hemoglobin 24.2 pg (28.0-33.3); Mean Corpuscular Volume 78.8 fL (83.0-100.0); Mean Platelet Volume 9.2 fL (9.4-12.4); Monocytes # 0.4 K/mcL (0.0-1.3); Monocytes % 5.1 %; Neutrophils # 5.9 K/mcL (1.6-8.9); Platelet Count 252 K/mcL (140-400); Red Blood Count 3.97 M/mcL (4.19-5.50); Red Cell Distribution Width 27.2 % (11.5-14.5); Segmented Neutrophils % 79.9 %; White Blood Count 7.4 K/mcL (4.3-11.1)
[2019-12-30 05:15] LABS: BUN/Creatinine Ratio 16 (6-26); Blood Urea Nitrogen 12 mg/dL (8-23); Calcium 8.6 mg/dL (8.6-10.3); Carbon Dioxide 24 mEq/L (23-29); Chloride 103 mEq/L (98-107); Glucose 221 mg/dL (70-105); Osmolality,Calculated 285 (280-300); Potassium 4.3 mEq/L (3.5-5.1); Sodium 134 mEq/L (136-145); eGFR For African Americans > 60 (> 60); eGFR For Non-African Americans > 60 (> 60)
[2019-12-30] MEDS: Levalbuterol 1 PUFF INHALER IH PRN ×2 (05:34→11:35)
[2019-12-30 05:47] LABS: Anisocytosis 1+ (Not Present); Platelet Estimate Normal (Normal)
[2019-12-30] MEDS: predniSONE 20 MG TABLET PO SCH (08:24)
[2019-12-30] MEDS: Magnesium Oxide 400 MG TABLET PO SCH (08:24)
[2019-12-30] MEDS: Aspirin 81 MG TAB.CHEW PO SCH (08:24)
[2019-12-30] MEDS: *HR* Rivaroxaban 10 MG TABLET PO SCH (08:25)
[2019-12-30] MEDS: (Roflumilast [Daliresp] 500 MCG) PO SCH (08:29)
[2019-12-30] MEDS ORDERED: E-Z-PAQUE (BARIUM SULF) SUSP 1 BOTTLE PO ONE (10:29)
[2019-12-30] MEDS ORDERED: E-Z-HD (BARIUM SULF) SUSPENSION PO ONE (10:29)
[2019-12-30] MEDS: Tiotropium 18 MCG inhalation IH SCH ×2 (11:25→11:34)
[2019-12-30] MEDS: Mirtazapine 15 MG TABLET PO SCH (20:34)
[2019-12-31 02:08] LABS: Basophils % 0.1 %; Eosinophils # 0.1 K/mcL (0.0-0.6); Eosinophils % 0.7 %; Hematocrit 32.2 % (37.5-50.1); Hemoglobin 9.8 g/dL (12.9-16.9); Immature Granulocytes % 0.6 % (0-4); Lymphocytes % 22.2 %; Mean Corpuscular HGB Conc 30.4 g/dL (31.6-35.5); Mean Corpuscular Hemoglobin 23.7 pg (28.0-33.3); Mean Platelet Volume 8.7 fL (9.4-12.4); Monocytes # 0.5 K/mcL (0.0-1.3); Monocytes % 5.3 %; Platelet Count 262 K/mcL (140-400); Red Blood Count 4.13 M/mcL (4.19-5.50); Red Cell Distribution Width 27.2 % (11.5-14.5); Segmented Neutrophils % 71.1 %; White Blood Count 8.9 K/mcL (4.3-11.1)
[2019-12-31 02:13] LABS: Neutrophils # 6.3 K/mcL (1.6-8.9)
[2019-12-31 02:26] LABS: Anisocytosis 2+ (Not Present); BUN/Creatinine Ratio 16 (6-26); Blood Urea Nitrogen 13 mg/dL (8-23); Calcium 8.8 mg/dL (8.6-10.3); Carbon Dioxide 26 mEq/L (23-29); Chloride 104 mEq/L (98-107); Glucose 111 mg/dL (70-105); Microcytosis Present (Not Present); Osmolality,Calculated 283 (280-300); Platelet Estimate Normal (Normal); Potassium 4.2 mEq/L (3.5-5.1); Sodium 136 mEq/L (136-145); eGFR For African Americans > 60 (> 60); eGFR For Non-African Americans > 60 (> 60)
[2019-12-31] MEDS: Ampicillin/Sulbactam 3,000 MG in 0.9 % Sodium Chloride Mini Bag 100 ML IVPB SCH (02:53)
[2019-12-31] MEDS: Levalbuterol 1 PUFF INHALER IH PRN ×2 (08:10→15:40)
[2019-12-31] MEDS: Tiotropium 18 MCG inhalation IH SCH (08:11)
[2019-12-31] MEDS ORDERED: Ampicillin/Sulbactam 3,000 MG in 0.9 % Sodium Chloride Mini Bag 100 ML IVPB SCH (08:15)
[2019-12-31 08:48] LABS: Estimated Average Glucose 111 mg/dl
[2019-12-31] MEDS ORDERED: *HR* Propofol 200 MG/20 ML VIAL IVP ONE (09:50)
[2019-12-31] MEDS ORDERED: Lidocaine -MPF 2% 2 ML VIAL ONE (09:50)
[2019-12-31] MEDS ORDERED: Dexamethasone 4 MG/ML VIAL ONE (09:50)
[2019-12-31] MEDS ORDERED: Ondansetron 4 MG/2 ML VIAL ONE (10:05)
[2019-12-31] MEDS: Aspirin 81 MG TAB.CHEW PO SCH (11:57)
[2019-12-31] MEDS: Magnesium Oxide 400 MG TABLET PO SCH (11:57)
[2019-12-31] MEDS: predniSONE 20 MG TABLET PO SCH (11:57)
[2019-12-31] MEDS: (Roflumilast [Daliresp] 500 MCG) PO SCH (11:58)
[2019-12-31] MEDS: Amoxicillin/Clavulanate 500 MG TABLET PO SCH ×2 (15:06→21:54)
[2019-12-31] MEDS: Mirtazapine 15 MG TABLET PO SCH (21:54)
[2020-01-01 01:37] LABS: Basophils % 0.3 %; Eosinophils # 0.1 K/mcL (0.0-0.6); Eosinophils % 1.2 %; Hematocrit 33.1 % (37.5-50.1); Immature Granulocytes % 0.3 % (0-4); Lymphocytes # 1.3 K/mcL (0.6-4.6); Lymphocytes % 21.4 %; Mean Corpuscular HGB Conc 30.2 g/dL (31.6-35.5); Mean Corpuscular Volume 79.4 fL (83.0-100.0); Mean Platelet Volume 8.9 fL (9.4-12.4); Monocytes # 0.5 K/mcL (0.0-1.3); Platelet Count 261 K/mcL (140-400); Red Blood Count 4.17 M/mcL (4.19-5.50); Red Cell Distribution Width 27.3 % (11.5-14.5); Segmented Neutrophils % 68.8 %; White Blood Count 5.9 K/mcL (4.3-11.1)
[2020-01-01 01:46] LABS: Neutrophils # 4.1 K/mcL (1.6-8.9)
[2020-01-01 02:47] LABS: Anisocytosis 1+ (Not Present); Reactive Lymphocytes Present (Not Present)
[2020-01-01 02:48] LABS: Platelet Estimate Normal (Normal)
[2020-01-01] MEDS: predniSONE 20 MG TABLET PO SCH (08:26)
[2020-01-01] MEDS: (Roflumilast [Daliresp] 500 MCG) PO SCH (08:27)
[2020-01-01] MEDS: Magnesium Oxide 400 MG TABLET PO SCH (08:27)
[2020-01-01] MEDS: Aspirin 81 MG TAB.CHEW PO SCH (08:27)
[2020-01-01] MEDS: Amoxicillin/Clavulanate 500 MG TABLET PO SCH ×2 (08:27→15:46)
[2020-01-01] MEDS ORDERED: Isovue-370 500 ML BOTTLE IVP ONE (09:13)
[2020-01-01] MEDS: *HR* Rivaroxaban 10 MG TABLET PO SCH (11:47)
[2020-01-01] MEDS: Tiotropium 18 MCG inhalation IH SCH (11:55)
[2020-01-01] MEDS: Levalbuterol 1 PUFF INHALER IH PRN (11:56)
[2020-01-01 15:10] VITALS: BP 147/80
== END 2020-01-01 19:03 | disposition home or self-care (01) | DRG 871 ==
LOC: EMEROOARM 14:18 → 2NENU 14:18 → SUATTDRO 19:33 → 2NENU 20:40 → SUATTDRO 12-29 13:19 → 2ANU 12-30 03:44
PROVIDERS: ADMIT Internal Medicine; ATTEND Student in an Organized Health Care Education/Training Program

== ENCOUNTER 2022-05-04 15:23 | Inpatient (IN) ==
[2022-05-04] MEDS ORDERED: Ondansetron ODT 4 MG TAB.RAPDIS SL ONE (16:36)
[2022-05-04 16:37] LABS: Basophils % 0.3 %; Eosinophils # 0.1 K/mcL (0.0-0.6); Eosinophils % 0.9 %; Hematocrit 40.6 % (37.5-50.1); Hemoglobin 12.9 g/dL (12.9-16.9); Immature Granulocytes % 1.6 % (0-4); Lymphocytes # 1.7 K/mcL (0.6-4.6); Lymphocytes % 18.9 %; Mean Corpuscular HGB Conc 31.8 g/dL (31.6-35.5); Mean Corpuscular Hemoglobin 27.5 pg (28.0-33.3); Mean Corpuscular Volume 86.6 fL (83.0-100.0); Mean Platelet Volume 8.7 fL (9.4-12.4); Monocytes # 0.4 K/mcL (0.0-1.3); Neutrophils # 6.9 K/mcL (1.6-8.9); Platelet Count 338 K/mcL (140-400); Red Blood Count 4.69 M/mcL (4.19-5.50); Red Cell Distribution Width 15.5 % (11.5-14.5); Segmented Neutrophils % 74.3 %; White Blood Count 9.2 K/mcL (4.3-11.1)
[2022-05-04] MEDS ORDERED: Acetaminophen 325 MG TABLET PO ONE (16:38)
[2022-05-04 16:43] LABS: BUN/Creatinine Ratio 22 (6-26); Blood Urea Nitrogen 16 mg/dL (8-23); Carbon Dioxide 31 mEq/L (23-29); Chloride 95 mEq/L (98-107); Glucose 89 mg/dL (70-105); Osmolality,Calculated 281 (280-300); Potassium 3.2 mEq/L (3.5-5.1); Sodium 135 mEq/L (136-145); Troponin I < 0.03 ng/mL (< 0.04)
[2022-05-04] MEDS ORDERED: Iopamidol - 370 500 ML MLS IVP ONE (17:41)
[2022-05-04 18:11] LABS: Albumin 3.5 g/dL (3.5-5.7); Albumin/Globulin Ratio 1.3 (1.1-2.2); Bilirubin,Direct 0.1 mg/dL (0.0-0.2); Bilirubin,Indirect 0.5 mg/dL (0.0-1.0); Bilirubin,Total 0.6 mg/dL (0.3-1.0); Globulin 2.7 g/dL (2.4-3.5); Total Protein 6.2 g/dL (6.4-8.9)
[2022-05-04 18:16] LABS: Influenza A PCR Negative (Negative); Influenza B PCR Negative (Negative); Resp. Syncytial Virus PCR Negative (Negative)
[2022-05-04 18:17] LABS: SARS-CoV-2 by PCR (In House) Negative (Negative)
[2022-05-04] MEDS ORDERED: Ipratropium/Albuterol Neb 3 ML IH ONE (18:58)
[2022-05-04 19:12] LABS: VBG HCO3 31 mEq/L (21-27); VBG PCO2 52 mmHg (41-51); VBG PH 7.37 pH Units (7.32-7.42); VBG PO2 43 mmHg (25-50)
[2022-05-04] MEDS ORDERED: Morphine Sulfate 2 MG/ML SYRINGE IVP ONE (19:20)
[2022-05-04] MEDS ORDERED: Piperacillin/Tazobactam 3.375 GM in 0.9 % Sodium Chloride Mini Bag 100 ML IVPB ONE (20:00)
[2022-05-04] MEDS ORDERED: Naloxone 0.4 MG/ML INJ IVP PRN (20:04)
[2022-05-04] MEDS ORDERED: Ipratropium/Albuterol Neb 3 ML IH PRN (22:39)
[2022-05-04] MEDS ORDERED: cefTRIAXone 1,000 MG in 0.9 % Sodium Chloride Mini Bag 100 ML IVPB SCH (23:00)
[2022-05-04] MEDS ORDERED: Furosemide 40 MG/4 ML VIAL IVP SCH (23:00)
[2022-05-05] MEDS: Ketorolac 30 MG/ML VIAL IVP SCH ×2 (00:37→06:08)
[2022-05-05] MEDS: Ondansetron ODT 4 MG TAB.RAPDIS SL PRN ×2 (00:42→11:22)
[2022-05-05] MEDS: Azithromycin 500 MG in 0.9 % Sodium Chloride 250 ML IVPB SCH ×2 (01:01→23:13)
[2022-05-05] MEDS ORDERED: Acetaminophen IV 1,000 MG/100 ML BAG IVPB ONE (01:18)
[2022-05-05 01:44] LABS: Hematocrit 35.7 % (37.5-50.1); Mean Corpuscular HGB Conc 31.7 g/dL (31.6-35.5); Mean Corpuscular Hemoglobin 27.6 pg (28.0-33.3); Mean Corpuscular Volume 87.3 fL (83.0-100.0); Mean Platelet Volume 8.9 fL (9.4-12.4); Platelet Count 289 K/mcL (140-400); Red Blood Count 4.09 M/mcL (4.19-5.50); Red Cell Distribution Width 15.3 % (11.5-14.5); White Blood Count 8.4 K/mcL (4.3-11.1)
[2022-05-05 01:51] LABS: Hemoglobin 11.3 g/dL (12.9-16.9)
[2022-05-05 02:02] LABS: Blood Urea Nitrogen 14 mg/dL (8-23); Calcium 8.5 mg/dL (8.6-10.3); Carbon Dioxide 31 mEq/L (23-29); Chloride 97 mEq/L (98-107); Glucose 68 mg/dL (70-105); Osmolality,Calculated 281 (280-300); Potassium 3.3 mEq/L (3.5-5.1); Sodium 136 mEq/L (136-145)
[2022-05-05] MEDS ORDERED: 0.9 % Sodium Chloride 500 ML IVC SCH (02:45)
[2022-05-05 03:02] LABS: BUN/Creatinine Ratio 20 (6-26)
[2022-05-05 05:02] LABS: Bilirubin,Urine Negative (Negative); Blood,Urine Negative (Negative); Clarity,Urine Clear (Clear); Color,Urine Light-Yellow (Yellow); Glucose,Urine (UA) Normal (Normal); Ketones,Urine Negative (Negative); Leukocyte Esterase,Urine Negative (Negative); Nitrite,Urine Negative (Negative); Protein,Urine Negative (Neg-Trace); Specific Gravity,Urine 1.025 (1.010-1.025); Urobilinogen,Urine Normal (Normal)
[2022-05-05] MEDS ORDERED: *HR* Dextrose 50 % in Water (Syg) 50 ML SYRINGE IVP ONE (05:43)
[2022-05-05] MEDS: cefTRIAXone 1,000 MG in 0.9 % Sodium Chloride Mini Bag 100 ML IVPB SCH (06:06)
[2022-05-05] MEDS: *HR* Enoxaparin 80 MG/0.8 ML SYRINGE SQ SCH ×2 (06:08→08:32)
[2022-05-05] MEDS: *HR* HYDROcodone/Acet 5/325 mg TABLET PO PRN ×3 (11:22→21:32)
[2022-05-05] MEDS: 0.9 % Sodium Chloride 500 ML IVC SCH ×3 (11:24→23:33)
[2022-05-05] MEDS ORDERED: D5% in Water 1,000 ML IVC PRN ×2 (15:48→15:51)
[2022-05-05] MEDS ORDERED: *HR* Dextrose 50 % in Water (Syg) 50 ML SYRINGE IVP PRN (15:48)
[2022-05-05] MEDS ORDERED: Dextrose Gel 15 GM/37.5 ML TUBE PO PRN ×2 (15:48)
[2022-05-05] MEDS ORDERED: *HR* Dextrose 50 % in Water (Vial) 50 ML VIAL IVP PRN (16:08)
[2022-05-05] MEDS: Ipratropium/Albuterol Neb 3 ML IH SCH ×4 (16:14→23:17)
[2022-05-05] MEDS: Mirtazapine 15 MG TABLET PO SCH (21:33)
[2022-05-06] MEDS: cefTRIAXone 1,000 MG in 0.9 % Sodium Chloride Mini Bag 100 ML IVPB SCH (03:04)
[2022-05-06] MEDS: Ondansetron ODT 4 MG TAB.RAPDIS SL PRN ×2 (03:20→19:42)
[2022-05-06] MEDS: *HR* HYDROcodone/Acet 5/325 mg TABLET PO PRN ×4 (03:21→19:41)
[2022-05-06] MEDS: Ipratropium/Albuterol Neb 3 ML IH SCH ×6 (03:46→22:59)
[2022-05-06] MEDS: DilTIAZem CD (24hr) 240 MG CAP.ER.24H PO SCH ×2 (08:31→10:31)
[2022-05-06] MEDS ORDERED: NON-FORMULARY MEDICATION 1 EACH EACH (Tiotropium Bromide [Spiriva Handihaler] 18 MCG Cap.W IH PRN (09:06)
[2022-05-06] MEDS ORDERED: Morphine Sulfate 2 MG/ML SYRINGE IVP ONE (09:07)
[2022-05-06 09:57] LABS: Basophils % 0.3 %; Eosinophils # 0.1 K/mcL (0.0-0.6); Hematocrit 33.1 % (37.5-50.1); Immature Granulocytes % 1.2 % (0-4); Lymphocytes # 1.1 K/mcL (0.6-4.6); Lymphocytes % 16.5 %; Mean Corpuscular HGB Conc 31.4 g/dL (31.6-35.5); Mean Corpuscular Hemoglobin 27.7 pg (28.0-33.3); Monocytes # 0.3 K/mcL (0.0-1.3); Neutrophils # 5.2 K/mcL (1.6-8.9); Platelet Count 247 K/mcL (140-400); Red Blood Count 3.76 M/mcL (4.19-5.50); Red Cell Distribution Width 15.2 % (11.5-14.5); White Blood Count 6.9 K/mcL (4.3-11.1)
[2022-05-06 10:19] LABS: Hemoglobin 10.4 g/dL (12.9-16.9)
[2022-05-06 10:22] LABS: BUN/Creatinine Ratio 11 (6-26); Blood Urea Nitrogen 7 mg/dL (8-23); Carbon Dioxide 29 mEq/L (23-29); Chloride 94 mEq/L (98-107); Glucose 114 mg/dL (70-105); Magnesium 1.5 mg/dL (1.6-2.6); Osmolality,Calculated 271 (280-300); Phosphorous 2.5 mg/dL (2.7-4.5); Potassium 3.4 mEq/L (3.5-5.1); Sodium 131 mEq/L (136-145)
[2022-05-06] MEDS: Mirtazapine 15 MG TABLET PO SCH (19:41)
[2022-05-06] MEDS: Azithromycin 500 MG in 0.9 % Sodium Chloride 250 ML IVPB SCH (22:34)
[2022-05-07] MEDS: *HR* HYDROcodone/Acet 5/325 mg TABLET PO PRN (00:38)
[2022-05-07] MEDS: cefTRIAXone 1,000 MG in 0.9 % Sodium Chloride Mini Bag 100 ML IVPB SCH (01:25)
[2022-05-07 03:07] LABS: Basophils % 0.4 %; Eosinophils # 0.1 K/mcL (0.0-0.6); Eosinophils % 1.1 %; Hematocrit 30.5 % (37.5-50.1); Hemoglobin 9.8 g/dL (12.9-16.9); Immature Granulocytes % 0.7 % (0-4); Lymphocytes # 1.2 K/mcL (0.6-4.6); Lymphocytes % 16.9 %; Mean Corpuscular HGB Conc 32.1 g/dL (31.6-35.5); Mean Corpuscular Hemoglobin 27.7 pg (28.0-33.3); Mean Corpuscular Volume 86.2 fL (83.0-100.0); Mean Platelet Volume 9.1 fL (9.4-12.4); Monocytes # 0.5 K/mcL (0.0-1.3); Monocytes % 6.8 %; Neutrophils # 5.3 K/mcL (1.6-8.9); Platelet Count 226 K/mcL (140-400); Red Blood Count 3.54 M/mcL (4.19-5.50); Red Cell Distribution Width 15.1 % (11.5-14.5); Segmented Neutrophils % 74.1 %; White Blood Count 7.1 K/mcL (4.3-11.1)
[2022-05-07 03:34] LABS: BUN/Creatinine Ratio 7 (6-26); Blood Urea Nitrogen 4 mg/dL (8-23); Calcium 7.6 mg/dL (8.6-10.3); Carbon Dioxide 27 mEq/L (23-29); Chloride 98 mEq/L (98-107); Glucose 95 mg/dL (70-105); Magnesium 1.9 mg/dL (1.6-2.6); Osmolality,Calculated 269 (280-300); Phosphorous 3.5 mg/dL (2.7-4.5); Potassium 3.9 mEq/L (3.5-5.1); Sodium 131 mEq/L (136-145)
[2022-05-07] MEDS: Ipratropium/Albuterol Neb 3 ML IH SCH ×5 (04:21→19:42)
[2022-05-07] MEDS ORDERED: Acetaminophen IV 1,000 MG/100 ML BAG IVPB ONE (06:35)
[2022-05-07] MEDS: Azithromycin 250 MG TABLET PO SCH (08:24)
[2022-05-07] MEDS ORDERED: *HR* HYDROcodone/Acet 5/325 mg TABLET PO PRN (08:55)
[2022-05-07] MEDS: *HR* OxyCODONE/APAP 5/325 TABLET PO PRN ×2 (10:15→16:15)
[2022-05-07] MEDS ORDERED: Levalbuterol 1 PUFF INHALER IH PRN (20:11)
[2022-05-07] MEDS ORDERED: Tiotropium 10 INH DOSE IH SCH (20:15)
[2022-05-07] MEDS: Mirtazapine 15 MG TABLET PO SCH (20:41)
[2022-05-08] MEDS ORDERED: Morphine Sulfate 2 MG/ML SYRINGE IVP ONE (00:22)
[2022-05-08] MEDS ORDERED: Levalbuterol Neb 1.25 MG/3 ML ONE (00:30)
[2022-05-08 00:46] LABS: ABG Base Excess 1 mEq/L (-2 to 3); ABG HCO3 26 mEq/L (21-27); ABG Oxygen Saturation 96 % (95-98); ABG PCO2 41 mmHg (35-45); ABG PH 7.42 pH Units (7.32-7.45); ABG PO2 78 mmHg (85-104); ABG TCO2 27 mEq/L (20-26)
[2022-05-08] MEDS ORDERED: Acetaminophen IV 500 MG/50 ML BAG IVPB ONE (03:19)
[2022-05-08] MEDS ORDERED: Levalbuterol Neb 1.25 MG/3 ML IH PRN (04:00)
[2022-05-08 04:17] LABS: BUN/Creatinine Ratio 10 (6-26); Blood Urea Nitrogen 6 mg/dL (8-23); Calcium 7.8 mg/dL (8.6-10.3); Carbon Dioxide 27 mEq/L (23-29); Chloride 98 mEq/L (98-107); Glucose 98 mg/dL (70-105); Magnesium 1.6 mg/dL (1.6-2.6); Osmolality,Calculated 274 (280-300); Sodium 133 mEq/L (136-145)
[2022-05-08] MEDS: cefTRIAXone 1,000 MG in 0.9 % Sodium Chloride Mini Bag 100 ML IVPB SCH (05:12)
[2022-05-08] MEDS ORDERED: Ondansetron 4 MG/2 ML VIAL IVP ONE (08:55)
[2022-05-08] MEDS ORDERED: Prochlorperazine 10 MG/2 ML VIAL IVP ONE (08:56)
[2022-05-08] MEDS: Azithromycin 250 MG TABLET PO SCH ×2 (09:36→09:55)
[2022-05-08] MEDS: DilTIAZem CD (24hr) 240 MG CAP.ER.24H PO SCH ×2 (09:36→09:54)
[2022-05-08] MEDS: Magnesium Oxide 400 MG TABLET PO SCH (09:36)
[2022-05-08] MEDS: *HR* OxyCODONE/APAP 5/325 TABLET PO PRN (09:36)
[2022-05-08] MEDS ORDERED: Ipratropium/Albuterol Neb 3 ML IH SCH (10:00)
[2022-05-08] MEDS: Tiotropium 10 INH DOSE IH SCH (11:26)
[2022-05-08] MEDS: Levalbuterol 1 PUFF INHALER IH SCH ×4 (11:29→22:57)
[2022-05-08] MEDS ORDERED: Iopamidol - 370 500 ML MLS IVP ONE (11:46)
[2022-05-08] MEDS: Piperacillin/Tazobactam 3.375 GM in 0.9 % Sodium Chloride Mini Bag 100 ML IVPB SCH (16:23)
[2022-05-08] MEDS: *HR* Heparin 5,000 UNIT/ML VIAL SQ SCH ×2 (16:24→21:33)
[2022-05-08] MEDS: 0.9 % Sodium Chloride 1,000 ML IVC SCH (16:24)
[2022-05-08] MEDS ORDERED: *HR* Rivaroxaban 10 MG TABLET PO SCH (17:00)
[2022-05-08] MEDS ORDERED: Acetaminophen IV 1,000 MG/100 ML BAG IVPB ONE (20:36)
[2022-05-08] MEDS: Mirtazapine 15 MG TABLET PO SCH (21:25)
[2022-05-09] MEDS: Piperacillin/Tazobactam 3.375 GM in 0.9 % Sodium Chloride Mini Bag 100 ML IVPB SCH ×3 (00:42→16:57)
[2022-05-09] MEDS: Levalbuterol 1 PUFF INHALER IH SCH ×6 (03:22→23:14)
[2022-05-09 04:36] LABS: Basophils % 0.4 %; Eosinophils # 0.1 K/mcL (0.0-0.6); Eosinophils % 1.1 %; Hematocrit 33.4 % (37.5-50.1); Hemoglobin 10.5 g/dL (12.9-16.9); Immature Granulocytes % 0.6 % (0-4); Lymphocytes % 13.9 %; Mean Corpuscular HGB Conc 31.4 g/dL (31.6-35.5); Mean Corpuscular Hemoglobin 27.6 pg (28.0-33.3); Mean Corpuscular Volume 87.9 fL (83.0-100.0); Mean Platelet Volume 9.2 fL (9.4-12.4); Monocytes # 0.5 K/mcL (0.0-1.3); Monocytes % 7.1 %; Neutrophils # 5.5 K/mcL (1.6-8.9); Platelet Count 246 K/mcL (140-400); Red Cell Distribution Width 15.2 % (11.5-14.5); Segmented Neutrophils % 76.9 %; White Blood Count 7.2 K/mcL (4.3-11.1)
[2022-05-09 04:55] LABS: BUN/Creatinine Ratio 8 (6-26); Blood Urea Nitrogen 6 mg/dL (8-23); Calcium 8.1 mg/dL (8.6-10.3); Carbon Dioxide 28 mEq/L (23-29); Chloride 101 mEq/L (98-107); Glucose 91 mg/dL (70-105); Magnesium 1.8 mg/dL (1.6-2.6); Osmolality,Calculated 279 (280-300); Potassium 3.5 mEq/L (3.5-5.1); Sodium 136 mEq/L (136-145)
[2022-05-09] MEDS ORDERED: Acetaminophen IV 1,000 MG/100 ML BAG IVPB ONE (06:20)
[2022-05-09] MEDS: *HR* Heparin 5,000 UNIT/ML VIAL SQ SCH ×3 (06:31→21:01)
[2022-05-09] MEDS: 0.9 % Sodium Chloride 1,000 ML IVC SCH (06:37)
[2022-05-09] MEDS: Tiotropium 10 INH DOSE IH SCH (07:45)
[2022-05-09] MEDS: DilTIAZem CD (24hr) 240 MG CAP.ER.24H PO SCH (09:42)
[2022-05-09] MEDS: (Roflumilast [Daliresp] 500 MCG Tablet) PO SCH (09:42)
[2022-05-09] MEDS: Magnesium Oxide 400 MG TABLET PO SCH (09:42)
[2022-05-09] MEDS: Azithromycin 500 MG in 0.9 % Sodium Chloride 250 ML IVPB SCH (10:04)
[2022-05-09] MEDS: Ondansetron ODT 4 MG TAB.RAPDIS SL PRN (12:38)
[2022-05-09] MEDS ORDERED: *HR* Propofol 200 MG/20 ML VIAL IVP ONE ×2 (15:30→15:49)
[2022-05-09] MEDS ORDERED: Lidocaine -MPF 2% 5 ML VIAL ONE (15:31)
[2022-05-09] MEDS: Mirtazapine 15 MG TABLET PO SCH (21:01)
[2022-05-10] MEDS: Piperacillin/Tazobactam 3.375 GM in 0.9 % Sodium Chloride Mini Bag 100 ML IVPB SCH ×3 (00:17→17:37)
[2022-05-10 04:10] LABS: BUN/Creatinine Ratio 10 (6-26); Blood Urea Nitrogen 7 mg/dL (8-23); Carbon Dioxide 29 mEq/L (23-29); Chloride 103 mEq/L (98-107); Glucose 150 mg/dL (70-105); Magnesium 1.7 mg/dL (1.6-2.6); Osmolality,Calculated 285 (280-300); Phosphorous 3.6 mg/dL (2.7-4.5); Potassium 3.4 mEq/L (3.5-5.1); Sodium 137 mEq/L (136-145)
[2022-05-10] MEDS: Levalbuterol 1 PUFF INHALER IH SCH ×6 (04:13→23:12)
[2022-05-10] MEDS: *HR* Heparin 5,000 UNIT/ML VIAL SQ SCH ×3 (05:30→22:35)
[2022-05-10] MEDS: Tiotropium 10 INH DOSE IH SCH (07:44)
[2022-05-10] MEDS: Levalbuterol Neb 1.25 MG/3 ML IH PRN (07:46)
[2022-05-10] MEDS: Azithromycin 500 MG in 0.9 % Sodium Chloride 250 ML IVPB SCH (08:45)
[2022-05-10] MEDS: Magnesium Oxide 400 MG TABLET PO SCH (08:50)
[2022-05-10] MEDS: DilTIAZem CD (24hr) 240 MG CAP.ER.24H PO SCH (08:50)
[2022-05-10] MEDS: Pantoprazole 40 MG VIAL IVP SCH (08:51)
[2022-05-10] MEDS: (Roflumilast [Daliresp] 500 MCG Tablet) PO SCH (08:51)
[2022-05-10] MEDS ORDERED: Magnesium Sulfate 1 GM/102 ML PIGGYBACK IVPB ONE (12:02)
[2022-05-10] MEDS ORDERED: Promethazine 6.25 MG in Water for inj. (sterile) 20 ML IVPB PRN (13:48)
[2022-05-10] MEDS ORDERED: Ondansetron 4 MG/2 ML VIAL IVP PRN (13:48)
[2022-05-10] MEDS ORDERED: *HR* FentaNYL (PF) 100 MCG/2 ML VIAL IVP PRN (13:48)
[2022-05-10] MEDS ORDERED: Lidocaine -MPF 2% 5 ML VIAL ONE (14:24)
[2022-05-10] MEDS ORDERED: *HR* FentaNYL (PF) 100 MCG/2 ML VIAL ONE (14:24)
[2022-05-10] MEDS ORDERED: Ondansetron 4 MG/2 ML VIAL ONE (14:24)
[2022-05-10] MEDS ORDERED: *HR* Propofol 200 MG/20 ML VIAL IVP ONE ×2 (14:24→15:33)
[2022-05-10] MEDS ORDERED: *HR* Succinylcholine 200 MG/10 ML VIAL IVP ONE (14:25)
[2022-05-10] MEDS ORDERED: Lidocaine -MPF 4% 5 ML AMPUL ONE (14:26)
[2022-05-10] MEDS ORDERED: Levalbuterol Neb 0.63 MG/3 ML IH ONE (16:45)
[2022-05-10] MEDS: Mirtazapine 15 MG TABLET PO SCH (22:35)
[2022-05-11] MEDS: Piperacillin/Tazobactam 3.375 GM in 0.9 % Sodium Chloride Mini Bag 100 ML IVPB SCH ×3 (00:40→15:48)
[2022-05-11] MEDS: Levalbuterol 1 PUFF INHALER IH SCH ×6 (03:57→23:21)
[2022-05-11] MEDS: *HR* Heparin 5,000 UNIT/ML VIAL SQ SCH (06:51)
[2022-05-11] MEDS: Levalbuterol Neb 1.25 MG/3 ML IH PRN ×3 (07:52→23:16)
[2022-05-11] MEDS: Tiotropium 10 INH DOSE IH SCH (07:52)
[2022-05-11] MEDS: Pantoprazole 40 MG VIAL IVP SCH (08:04)
[2022-05-11] MEDS: DilTIAZem CD (24hr) 240 MG CAP.ER.24H PO SCH (08:04)
[2022-05-11] MEDS: Magnesium Oxide 400 MG TABLET PO SCH (08:04)
[2022-05-11] MEDS: Mirtazapine 15 MG TABLET PO SCH (20:16)
[2022-05-12] MEDS: Piperacillin/Tazobactam 3.375 GM in 0.9 % Sodium Chloride Mini Bag 100 ML IVPB SCH ×3 (00:13→18:02)
[2022-05-12] MEDS: Levalbuterol Neb 1.25 MG/3 ML IH PRN ×2 (04:38→20:09)
[2022-05-12] MEDS: Levalbuterol 1 PUFF INHALER IH SCH ×5 (04:41→20:10)
[2022-05-12 05:59] LABS: INR 1.1; Prothrombin Time 12.1 Seconds (9.4-12.1)
[2022-05-12 06:11] LABS: BUN/Creatinine Ratio 10 (6-26); Blood Urea Nitrogen 7 mg/dL (8-23); Calcium 8.2 mg/dL (8.6-10.3); Carbon Dioxide 27 mEq/L (23-29); Chloride 102 mEq/L (98-107); Glucose 126 mg/dL (70-105); Magnesium 1.6 mg/dL (1.6-2.6); Osmolality,Calculated 284 (280-300); Potassium 3.5 mEq/L (3.5-5.1); Sodium 137 mEq/L (136-145)
[2022-05-12] MEDS: Tiotropium 10 INH DOSE IH SCH (07:29)
[2022-05-12 08:53] LABS: Basophils % 0.1 %; Eosinophils % 0.3 %; Hematocrit 26.2 % (37.5-50.1); Hemoglobin 8.5 g/dL (12.9-16.9); Immature Granulocytes % 0.6 % (0-4); Lymphocytes # 1.4 K/mcL (0.6-4.6); Lymphocytes % 20.6 %; Mean Corpuscular HGB Conc 32.4 g/dL (31.6-35.5); Mean Corpuscular Hemoglobin 27.6 pg (28.0-33.3); Mean Corpuscular Volume 85.1 fL (83.0-100.0); Mean Platelet Volume 9.5 fL (9.4-12.4); Monocytes # 0.5 K/mcL (0.0-1.3); Monocytes % 6.7 %; Platelet Count 237 K/mcL (140-400); Red Blood Count 3.08 M/mcL (4.19-5.50); Segmented Neutrophils % 71.7 %
[2022-05-12] MEDS: Pantoprazole 40 MG VIAL IVP SCH (10:31)
[2022-05-12] MEDS: Magnesium Oxide 400 MG TABLET PO SCH (10:38)
[2022-05-12] MEDS: DilTIAZem CD (24hr) 240 MG CAP.ER.24H PO SCH (10:52)
[2022-05-12] MEDS: hydroCHLOROthiazide 25 MG TABLET PO SCH (10:52)
[2022-05-12] MEDS ORDERED: *HR* Succinylcholine 200 MG/10 ML VIAL IVP ONE (13:06)
[2022-05-12] MEDS ORDERED: *HR* FentaNYL (PF) 100 MCG/2 ML VIAL ONE (13:08)
[2022-05-12] MEDS ORDERED: *HR* Propofol 200 MG/20 ML VIAL IVP ONE (13:08)
[2022-05-12] MEDS ORDERED: Lidocaine -MPF 2% 5 ML VIAL ONE (13:09)
[2022-05-12] MEDS ORDERED: Lidocaine HCL 4 ML Topical Solution (Laryng-O-Jet Kit Sterile Pak) TP ONE (13:09)
[2022-05-12] MEDS ORDERED: Ondansetron 4 MG/2 ML VIAL ONE (13:09)
[2022-05-12] MEDS ORDERED: EPHEDrine 50 MG/ML VIAL ONE (13:58)
[2022-05-12] MEDS: Acetaminophen 325 MG TABLET PO PRN (18:02)
[2022-05-12] MEDS: Mirtazapine 15 MG TABLET PO SCH (21:42)
[2022-05-13] MEDS: Levalbuterol 1 PUFF INHALER IH SCH ×6 (00:08→19:51)
[2022-05-13] MEDS: Piperacillin/Tazobactam 3.375 GM in 0.9 % Sodium Chloride Mini Bag 100 ML IVPB SCH ×3 (01:05→16:40)
[2022-05-13] MEDS: Acetaminophen 325 MG TABLET PO PRN ×2 (01:06→09:32)
[2022-05-13 01:59] LABS: Hematocrit 34.3 % (37.5-50.1); Immature Granulocytes % 0.5 % (0-4); Lymphocytes # 0.4 K/mcL (0.6-4.6); Lymphocytes % 9.7 %; Mean Corpuscular HGB Conc 30.9 g/dL (31.6-35.5); Mean Corpuscular Hemoglobin 26.7 pg (28.0-33.3); Mean Corpuscular Volume 86.4 fL (83.0-100.0); Mean Platelet Volume 9.3 fL (9.4-12.4); Monocytes % 0.8 %; Neutrophils # 3.3 K/mcL (1.6-8.9); Platelet Count 329 K/mcL (140-400); Red Blood Count 3.97 M/mcL (4.19-5.50); Red Cell Distribution Width 15.2 % (11.5-14.5); White Blood Count 3.7 K/mcL (4.3-11.1)
[2022-05-13 02:06] LABS: Hemoglobin 10.6 g/dL (12.9-16.9)
[2022-05-13 02:16] LABS: BUN/Creatinine Ratio 12 (6-26); Blood Urea Nitrogen 9 mg/dL (8-23); Calcium 8.6 mg/dL (8.6-10.3); Carbon Dioxide 22 mEq/L (23-29); Chloride 97 mEq/L (98-107); Glucose 143 mg/dL (70-105); Magnesium 1.6 mg/dL (1.6-2.6); Osmolality,Calculated 275 (280-300); Potassium 4.1 mEq/L (3.5-5.1); Sodium 132 mEq/L (136-145)
[2022-05-13] MEDS: Tiotropium 10 INH DOSE IH SCH (08:43)
[2022-05-13] MEDS: DilTIAZem CD (24hr) 240 MG CAP.ER.24H PO SCH (09:32)
[2022-05-13] MEDS: Pantoprazole 40 MG VIAL IVP SCH (09:32)
[2022-05-13] MEDS: hydroCHLOROthiazide 25 MG TABLET PO SCH (09:32)
[2022-05-13] MEDS: Magnesium Oxide 400 MG TABLET PO SCH (10:58)
[2022-05-13] MEDS: Levalbuterol Neb 1.25 MG/3 ML IH PRN ×2 (16:06→19:51)
[2022-05-13] MEDS: Ondansetron ODT 4 MG TAB.RAPDIS SL PRN (17:36)
[2022-05-13] MEDS ORDERED: *HR* HYDROcodone/Acet 10/325 mg TABLET PO ONE (20:02)
[2022-05-13] MEDS: Lactobacillus 1 EACH CAP.SPRINK PO SCH (21:28)
[2022-05-13] MEDS: Mirtazapine 15 MG TABLET PO SCH (21:29)
[2022-05-14] MEDS: Levalbuterol 1 PUFF INHALER IH SCH ×7 (00:35→23:24)
[2022-05-14] MEDS: Piperacillin/Tazobactam 3.375 GM in 0.9 % Sodium Chloride Mini Bag 100 ML IVPB SCH ×3 (01:38→15:39)
[2022-05-14] MEDS: Levalbuterol Neb 1.25 MG/3 ML IH PRN ×3 (04:44→23:18)
[2022-05-14] MEDS: Acetaminophen 325 MG TABLET PO PRN ×2 (05:35→11:08)
[2022-05-14 05:50] LABS: Basophils % 0.1 %; Eosinophils % 0.1 %; Hematocrit 34.3 % (37.5-50.1); Hemoglobin 10.8 g/dL (12.9-16.9); Immature Granulocytes % 0.8 % (0-4); Lymphocytes # 1.3 K/mcL (0.6-4.6); Lymphocytes % 16.3 %; Mean Corpuscular HGB Conc 31.5 g/dL (31.6-35.5); Mean Corpuscular Hemoglobin 27.1 pg (28.0-33.3); Mean Platelet Volume 9.3 fL (9.4-12.4); Monocytes # 0.6 K/mcL (0.0-1.3); Platelet Count 380 K/mcL (140-400); Red Blood Count 3.99 M/mcL (4.19-5.50); Red Cell Distribution Width 15.3 % (11.5-14.5); Segmented Neutrophils % 74.7 %
[2022-05-14 06:12] LABS: Calcium 9.3 mg/dL (8.6-10.3); Magnesium 1.6 mg/dL (1.6-2.6); Potassium 4.4 mEq/L (3.5-5.1)
[2022-05-14] MEDS: Tiotropium 10 INH DOSE IH SCH (08:00)
[2022-05-14] MEDS: Pantoprazole 40 MG VIAL IVP SCH (08:09)
[2022-05-14] MEDS: Magnesium Oxide 400 MG TABLET PO SCH (08:10)
[2022-05-14] MEDS: Lactobacillus 1 EACH CAP.SPRINK PO SCH ×2 (08:10→21:49)
[2022-05-14] MEDS: hydroCHLOROthiazide 25 MG TABLET PO SCH (08:10)
[2022-05-14] MEDS: DilTIAZem CD (24hr) 240 MG CAP.ER.24H PO SCH (08:10)
[2022-05-14] MEDS: Ondansetron ODT 4 MG TAB.RAPDIS SL PRN (11:08)
[2022-05-14] MEDS ORDERED: Iopamidol - 370 500 ML MLS IV ONE (11:20)
[2022-05-14] MEDS ORDERED: Sennosides 8.6 MG TABLET PO ONE (12:21)
[2022-05-14] MEDS ORDERED: Furosemide 20 MG TABLET PO ONE (12:21)
[2022-05-14] MEDS: *HR* OxyCODONE/APAP 10/325 TABLET PO PRN ×2 (15:16→21:49)
[2022-05-14] MEDS ORDERED: Iopamidol - 370 500 ML MLS IVP ONE (15:34)
[2022-05-14] MEDS ORDERED: Ondansetron 4 MG/2 ML VIAL IVP ONE (16:07)
[2022-05-14] MEDS ORDERED: *HR* Rivaroxaban 10 MG TABLET PO SCH (17:00)
[2022-05-15] MEDS: Piperacillin/Tazobactam 3.375 GM in 0.9 % Sodium Chloride Mini Bag 100 ML IVPB SCH ×2 (03:18→09:52)
[2022-05-15] MEDS: Mirtazapine 15 MG TABLET PO SCH ×2 (03:18→20:52)
[2022-05-15] MEDS: Levalbuterol Neb 1.25 MG/3 ML IH PRN ×3 (03:52→19:57)
[2022-05-15] MEDS: Levalbuterol 1 PUFF INHALER IH SCH ×6 (03:54→23:44)
[2022-05-15] MEDS: Tiotropium 10 INH DOSE IH SCH (07:46)
[2022-05-15] MEDS: Pantoprazole 40 MG VIAL IVP SCH (08:59)
[2022-05-15] MEDS: DilTIAZem CD (24hr) 240 MG CAP.ER.24H PO SCH (09:52)
[2022-05-15] MEDS: Magnesium Oxide 400 MG TABLET PO SCH ×2 (09:52→20:52)
[2022-05-15] MEDS: Lactobacillus 1 EACH CAP.SPRINK PO SCH ×2 (09:52→20:52)
[2022-05-15] MEDS: hydroCHLOROthiazide 25 MG TABLET PO SCH (09:52)
[2022-05-15] MEDS: *HR* OxyCODONE/APAP 10/325 TABLET PO PRN ×3 (09:55→20:51)
[2022-05-15] MEDS: Acetaminophen 325 MG TABLET PO PRN (23:46)
[2022-05-16] MEDS: *HR* OxyCODONE/APAP 10/325 TABLET PO PRN ×6 (01:09→21:38)
[2022-05-16 03:40] LABS: Basophils % 0.4 %; Eosinophils # 0.1 K/mcL (0.0-0.6); Eosinophils % 1.1 %; Hematocrit 31.6 % (37.5-50.1); Hemoglobin 9.8 g/dL (12.9-16.9); Lymphocytes # 1.8 K/mcL (0.6-4.6); Lymphocytes % 22.1 %; Mean Corpuscular Hemoglobin 27.1 pg (28.0-33.3); Mean Corpuscular Volume 87.5 fL (83.0-100.0); Monocytes # 0.7 K/mcL (0.0-1.3); Neutrophils # 5.5 K/mcL (1.6-8.9); Platelet Count 340 K/mcL (140-400); Red Blood Count 3.61 M/mcL (4.19-5.50); Red Cell Distribution Width 15.4 % (11.5-14.5); Segmented Neutrophils % 67.4 %; White Blood Count 8.1 K/mcL (4.3-11.1)
[2022-05-16] MEDS: Levalbuterol 1 PUFF INHALER IH SCH ×6 (03:47→23:34)
[2022-05-16 03:59] LABS: BUN/Creatinine Ratio 9 (6-26); Blood Urea Nitrogen 7 mg/dL (8-23); Calcium 8.5 mg/dL (8.6-10.3); Carbon Dioxide 30 mEq/L (23-29); Chloride 99 mEq/L (98-107); Glucose 94 mg/dL (70-105); Magnesium 1.8 mg/dL (1.6-2.6); Osmolality,Calculated 278 (280-300); Potassium 3.8 mEq/L (3.5-5.1); Sodium 135 mEq/L (136-145)
[2022-05-16] MEDS: Tiotropium 10 INH DOSE IH SCH (07:47)
[2022-05-16] MEDS: hydroCHLOROthiazide 25 MG TABLET PO SCH (08:07)
[2022-05-16] MEDS: Pantoprazole 40 MG VIAL IVP SCH (08:07)
[2022-05-16] MEDS: Magnesium Oxide 400 MG TABLET PO SCH ×2 (08:07→19:49)
[2022-05-16] MEDS: DilTIAZem CD (24hr) 240 MG CAP.ER.24H PO SCH (08:08)
[2022-05-16] MEDS: Lactobacillus 1 EACH CAP.SPRINK PO SCH ×2 (08:08→19:49)
[2022-05-16] MEDS: Levalbuterol Neb 1.25 MG/3 ML IH PRN (11:30)
[2022-05-16] MEDS: *HR* Rivaroxaban 10 MG TABLET PO SCH (16:45)
[2022-05-17] MEDS: *HR* OxyCODONE/APAP 10/325 TABLET PO PRN ×4 (01:49→20:46)
[2022-05-17 03:29] LABS: Basophils % 0.5 %; Eosinophils # 0.1 K/mcL (0.0-0.6); Eosinophils % 1.4 %; Hematocrit 33.8 % (37.5-50.1); Hemoglobin 10.5 g/dL (12.9-16.9); Immature Granulocytes % 1.3 % (0-4); Lymphocytes # 1.8 K/mcL (0.6-4.6); Lymphocytes % 20.6 %; Mean Corpuscular HGB Conc 31.1 g/dL (31.6-35.5); Mean Corpuscular Hemoglobin 27.1 pg (28.0-33.3); Mean Corpuscular Volume 87.3 fL (83.0-100.0); Mean Platelet Volume 8.9 fL (9.4-12.4); Monocytes # 0.6 K/mcL (0.0-1.3); Monocytes % 7.4 %; Neutrophils # 5.9 K/mcL (1.6-8.9); Platelet Count 420 K/mcL (140-400); Red Blood Count 3.87 M/mcL (4.19-5.50); Red Cell Distribution Width 15.4 % (11.5-14.5); Segmented Neutrophils % 68.8 %; White Blood Count 8.6 K/mcL (4.3-11.1)
[2022-05-17 03:44] LABS: BUN/Creatinine Ratio 13 (6-26); Blood Urea Nitrogen 10 mg/dL (8-23); Calcium 8.8 mg/dL (8.6-10.3); Carbon Dioxide 30 mEq/L (23-29); Chloride 96 mEq/L (98-107); Glucose 121 mg/dL (70-105); Osmolality,Calculated 278 (280-300); Potassium 4.2 mEq/L (3.5-5.1); Sodium 134 mEq/L (136-145)
[2022-05-17] MEDS: Levalbuterol 1 PUFF INHALER IH SCH ×6 (03:58→23:27)
[2022-05-17] MEDS: Tiotropium 10 INH DOSE IH SCH (07:57)
[2022-05-17] MEDS: DilTIAZem CD (24hr) 240 MG CAP.ER.24H PO SCH (08:46)
[2022-05-17] MEDS: Lactobacillus 1 EACH CAP.SPRINK PO SCH ×2 (08:46→20:45)
[2022-05-17] MEDS: hydroCHLOROthiazide 25 MG TABLET PO SCH (08:47)
[2022-05-17] MEDS: Pantoprazole 40 MG VIAL IVP SCH (08:47)
[2022-05-17] MEDS: Magnesium Oxide 400 MG TABLET PO SCH ×2 (08:47→20:45)
[2022-05-17] MEDS: Levalbuterol Neb 1.25 MG/3 ML IH PRN ×2 (10:50→20:26)
[2022-05-17] MEDS: Ondansetron ODT 4 MG TAB.RAPDIS SL PRN ×2 (12:53→20:46)
[2022-05-17] MEDS: *HR* Rivaroxaban 10 MG TABLET PO SCH (16:20)
[2022-05-18] MEDS: Levalbuterol 1 PUFF INHALER IH SCH ×6 (04:34→23:42)
[2022-05-18] MEDS: Ondansetron ODT 4 MG TAB.RAPDIS SL PRN (04:43)
[2022-05-18] MEDS: *HR* OxyCODONE/APAP 5/325 TABLET PO PRN (04:43)
[2022-05-18 06:41] LABS: Hematocrit 32.8 % (37.5-50.1); Hemoglobin 10.4 g/dL (12.9-16.9); Mean Corpuscular HGB Conc 31.7 g/dL (31.6-35.5); Mean Corpuscular Hemoglobin 27.4 pg (28.0-33.3); Mean Corpuscular Volume 86.5 fL (83.0-100.0); Mean Platelet Volume 9.3 fL (9.4-12.4); Platelet Count 422 K/mcL (140-400); Red Blood Count 3.79 M/mcL (4.19-5.50); Red Cell Distribution Width 15.3 % (11.5-14.5); White Blood Count 7.6 K/mcL (4.3-11.1)
[2022-05-18] MEDS: Tiotropium 10 INH DOSE IH SCH (08:13)
[2022-05-18 08:39] LABS: BUN/Creatinine Ratio 11 (6-26); Blood Urea Nitrogen 9 mg/dL (8-23); Calcium 8.6 mg/dL (8.6-10.3); Carbon Dioxide 28 mEq/L (23-29); Chloride 98 mEq/L (98-107); Glucose 95 mg/dL (70-105); Magnesium 1.7 mg/dL (1.6-2.6); Osmolality,Calculated 278 (280-300); Potassium 3.5 mEq/L (3.5-5.1); Sodium 135 mEq/L (136-145)
[2022-05-18] MEDS: Lactobacillus 1 EACH CAP.SPRINK PO SCH ×2 (10:22→19:58)
[2022-05-18] MEDS: hydroCHLOROthiazide 25 MG TABLET PO SCH (10:22)
[2022-05-18] MEDS: DilTIAZem CD (24hr) 240 MG CAP.ER.24H PO SCH (10:22)
[2022-05-18] MEDS: Magnesium Oxide 400 MG TABLET PO SCH ×2 (10:23→19:58)
[2022-05-18] MEDS: *HR* OxyCODONE/APAP 10/325 TABLET PO PRN ×2 (14:29→20:01)
[2022-05-18] MEDS: Pantoprazole 40 MG VIAL IVP SCH (17:18)
[2022-05-18] MEDS: *HR* Rivaroxaban 10 MG TABLET PO SCH (17:18)
[2022-05-19] MEDS: *HR* OxyCODONE/APAP 10/325 TABLET PO PRN ×4 (00:17→23:14)
[2022-05-19] MEDS: Levalbuterol Neb 1.25 MG/3 ML IH PRN ×3 (04:26→20:06)
[2022-05-19 06:19] LABS: Hematocrit 33.4 % (37.5-50.1); Hemoglobin 10.5 g/dL (12.9-16.9); Mean Corpuscular HGB Conc 31.4 g/dL (31.6-35.5); Mean Corpuscular Hemoglobin 27.1 pg (28.0-33.3); Mean Corpuscular Volume 86.3 fL (83.0-100.0); Mean Platelet Volume 9.2 fL (9.4-12.4); Platelet Count 467 K/mcL (140-400); Red Blood Count 3.87 M/mcL (4.19-5.50); Red Cell Distribution Width 15.4 % (11.5-14.5); White Blood Count 7.5 K/mcL (4.3-11.1)
[2022-05-19 06:48] LABS: BUN/Creatinine Ratio 13 (6-26); Blood Urea Nitrogen 11 mg/dL (8-23); Calcium 8.9 mg/dL (8.6-10.3); Carbon Dioxide 30 mEq/L (23-29); Chloride 94 mEq/L (98-107); Glucose 115 mg/dL (70-105); Magnesium 1.7 mg/dL (1.6-2.6); Osmolality,Calculated 276 (280-300); Potassium 3.2 mEq/L (3.5-5.1); Sodium 133 mEq/L (136-145)
[2022-05-19] MEDS: Levalbuterol 1 PUFF INHALER IH SCH ×5 (07:48→20:07)
[2022-05-19] MEDS: Tiotropium 10 INH DOSE IH SCH (08:10)
[2022-05-19] MEDS: *HR* OxyCODONE/APAP 5/325 TABLET PO PRN ×2 (09:38→14:22)
[2022-05-19] MEDS: hydroCHLOROthiazide 25 MG TABLET PO SCH (09:38)
[2022-05-19] MEDS: Magnesium Oxide 400 MG TABLET PO SCH ×2 (09:38→20:42)
[2022-05-19] MEDS: Pantoprazole 40 MG VIAL IVP SCH (09:39)
[2022-05-19] MEDS: Lactobacillus 1 EACH CAP.SPRINK PO SCH ×2 (09:39→20:42)
[2022-05-19] MEDS: DilTIAZem CD (24hr) 240 MG CAP.ER.24H PO SCH (09:39)
[2022-05-19 12:26] LABS: Phosphorous 3.8 mg/dL (2.7-4.5)
[2022-05-19] MEDS: *HR* Rivaroxaban 10 MG TABLET PO SCH (17:35)
[2022-05-19] MEDS: Ondansetron ODT 4 MG TAB.RAPDIS SL PRN (20:43)
[2022-05-20] MEDS: Levalbuterol 1 PUFF INHALER IH SCH ×7 (00:19→23:33)
[2022-05-20 02:50] LABS: Hematocrit 31.9 % (37.5-50.1); Hemoglobin 10.3 g/dL (12.9-16.9); Mean Corpuscular HGB Conc 32.3 g/dL (31.6-35.5); Mean Corpuscular Hemoglobin 27.8 pg (28.0-33.3); Mean Platelet Volume 9.1 fL (9.4-12.4); Platelet Count 440 K/mcL (140-400); Red Blood Count 3.71 M/mcL (4.19-5.50); Red Cell Distribution Width 15.4 % (11.5-14.5)
[2022-05-20 02:58] LABS: BUN/Creatinine Ratio 18 (6-26); Blood Urea Nitrogen 16 mg/dL (8-23); Calcium 8.7 mg/dL (8.6-10.3); Carbon Dioxide 32 mEq/L (23-29); Chloride 94 mEq/L (98-107); Glucose 119 mg/dL (70-105); Osmolality,Calculated 280 (280-300); Potassium 3.2 mEq/L (3.5-5.1); Sodium 134 mEq/L (136-145)
[2022-05-20 03:00] LABS: White Blood Count 13.3 K/mcL (4.3-11.1)
[2022-05-20] MEDS: Levalbuterol Neb 1.25 MG/3 ML IH PRN ×3 (04:05→20:22)
[2022-05-20] MEDS: *HR* OxyCODONE/APAP 10/325 TABLET PO PRN ×5 (04:18→22:25)
[2022-05-20] MEDS: Tiotropium 10 INH DOSE IH SCH (07:22)
[2022-05-20] MEDS: Lactobacillus 1 EACH CAP.SPRINK PO SCH ×2 (09:10→20:52)
[2022-05-20] MEDS: Magnesium Oxide 400 MG TABLET PO SCH ×2 (09:10→20:51)
[2022-05-20] MEDS: DilTIAZem CD (24hr) 240 MG CAP.ER.24H PO SCH (09:10)
[2022-05-20] MEDS: hydroCHLOROthiazide 25 MG TABLET PO SCH (09:10)
[2022-05-20] MEDS: Ondansetron ODT 4 MG TAB.RAPDIS SL PRN (09:26)
[2022-05-20] MEDS: Pantoprazole 40 MG VIAL IVP SCH (09:27)
[2022-05-20] MEDS: *HR* Rivaroxaban 10 MG TABLET PO SCH (16:23)
[2022-05-21] MEDS: *HR* OxyCODONE/APAP 10/325 TABLET PO PRN ×5 (02:24→21:07)
[2022-05-21] MEDS: Ondansetron ODT 4 MG TAB.RAPDIS SL PRN ×3 (02:27→21:21)
[2022-05-21 03:20] LABS: Hematocrit 31.4 % (37.5-50.1); Hemoglobin 9.9 g/dL (12.9-16.9); Mean Corpuscular HGB Conc 31.5 g/dL (31.6-35.5); Mean Corpuscular Hemoglobin 26.9 pg (28.0-33.3); Mean Corpuscular Volume 85.3 fL (83.0-100.0); Platelet Count 438 K/mcL (140-400); Red Blood Count 3.68 M/mcL (4.19-5.50); Red Cell Distribution Width 15.5 % (11.5-14.5); White Blood Count 9.2 K/mcL (4.3-11.1)
[2022-05-21 03:40] LABS: BUN/Creatinine Ratio 22 (6-26); Blood Urea Nitrogen 16 mg/dL (8-23); Calcium 8.8 mg/dL (8.6-10.3); Carbon Dioxide 30 mEq/L (23-29); Chloride 95 mEq/L (98-107); Glucose 106 mg/dL (70-105); Osmolality,Calculated 282 (280-300); Sodium 135 mEq/L (136-145)
[2022-05-21] MEDS: Levalbuterol Neb 1.25 MG/3 ML IH PRN ×2 (04:18→11:52)
[2022-05-21] MEDS: Levalbuterol 1 PUFF INHALER IH SCH ×6 (04:18→23:16)
[2022-05-21] MEDS: Tiotropium 10 INH DOSE IH SCH (07:44)
[2022-05-21] MEDS: Magnesium Oxide 400 MG TABLET PO SCH ×2 (08:36→21:07)
[2022-05-21] MEDS: DilTIAZem CD (24hr) 240 MG CAP.ER.24H PO SCH (08:36)
[2022-05-21] MEDS: hydroCHLOROthiazide 25 MG TABLET PO SCH (08:36)
[2022-05-21] MEDS: Lactobacillus 1 EACH CAP.SPRINK PO SCH ×2 (08:36→21:08)
[2022-05-21] MEDS: Pantoprazole 40 MG VIAL IVP SCH (11:59)
[2022-05-21] MEDS: *HR* Rivaroxaban 10 MG TABLET PO SCH (17:19)
[2022-05-22] MEDS: *HR* OxyCODONE/APAP 10/325 TABLET PO PRN ×3 (02:48→17:16)
[2022-05-22] MEDS: Levalbuterol Neb 1.25 MG/3 ML IH PRN (04:36)
[2022-05-22] MEDS: Levalbuterol 1 PUFF INHALER IH SCH ×6 (04:38→23:53)
[2022-05-22 06:59] LABS: Hematocrit 25.6 % (37.5-50.1); Mean Corpuscular HGB Conc 31.3 g/dL (31.6-35.5); Mean Corpuscular Hemoglobin 27.2 pg (28.0-33.3); Mean Corpuscular Volume 87.1 fL (83.0-100.0); Mean Platelet Volume 9.3 fL (9.4-12.4); Platelet Count 366 K/mcL (140-400); Red Blood Count 2.94 M/mcL (4.19-5.50); Red Cell Distribution Width 15.6 % (11.5-14.5); White Blood Count 9.4 K/mcL (4.3-11.1)
[2022-05-22 07:21] LABS: Calcium 9.1 mg/dL (8.6-10.3)
[2022-05-22] MEDS: Tiotropium 10 INH DOSE IH SCH (07:49)
[2022-05-22] MEDS: Lactobacillus 1 EACH CAP.SPRINK PO SCH ×2 (09:41→20:19)
[2022-05-22] MEDS: hydroCHLOROthiazide 25 MG TABLET PO SCH (09:42)
[2022-05-22] MEDS: DilTIAZem CD (24hr) 240 MG CAP.ER.24H PO SCH (09:42)
[2022-05-22] MEDS: Magnesium Oxide 400 MG TABLET PO SCH ×2 (09:42→20:19)
[2022-05-22] MEDS: Morphine Sulfate 2 MG/ML SYRINGE IVP PRN ×3 (09:43→20:31)
[2022-05-22] MEDS: Pantoprazole 40 MG VIAL IVP SCH (09:43)
[2022-05-22] MEDS: Ondansetron ODT 4 MG TAB.RAPDIS SL PRN (10:18)
[2022-05-22 14:24] LABS: Hematocrit 29.4 % (37.5-50.1); Hemoglobin 9.5 g/dL (12.9-16.9)
[2022-05-22] MEDS: *HR* Rivaroxaban 10 MG TABLET PO SCH (17:17)
[2022-05-23] MEDS: Morphine Sulfate 2 MG/ML SYRINGE IVP PRN ×5 (02:26→22:14)
[2022-05-23] MEDS: Levalbuterol Neb 1.25 MG/3 ML IH PRN ×3 (04:27→15:41)
[2022-05-23] MEDS: Levalbuterol 1 PUFF INHALER IH SCH ×6 (04:29→23:04)
[2022-05-23 05:06] LABS: Hemoglobin 9.1 g/dL (12.9-16.9); Mean Corpuscular HGB Conc 32.5 g/dL (31.6-35.5); Mean Corpuscular Hemoglobin 27.5 pg (28.0-33.3); Mean Corpuscular Volume 84.6 fL (83.0-100.0); Mean Platelet Volume 9.2 fL (9.4-12.4); Platelet Count 373 K/mcL (140-400); Red Blood Count 3.31 M/mcL (4.19-5.50); Red Cell Distribution Width 15.3 % (11.5-14.5); White Blood Count 11.1 K/mcL (4.3-11.1)
[2022-05-23 05:23] LABS: BUN/Creatinine Ratio 17 (6-26); Blood Urea Nitrogen 10 mg/dL (8-23); Calcium 8.1 mg/dL (8.6-10.3); Carbon Dioxide 30 mEq/L (23-29); Chloride 93 mEq/L (98-107); Glucose 111 mg/dL (70-105); Osmolality,Calculated 272 (280-300); Sodium 131 mEq/L (136-145)
[2022-05-23] MEDS: Tiotropium 10 INH DOSE IH SCH (07:58)
[2022-05-23] MEDS: DilTIAZem CD (24hr) 240 MG CAP.ER.24H PO SCH (09:10)
[2022-05-23] MEDS: Magnesium Oxide 400 MG TABLET PO SCH ×2 (09:10→20:53)
[2022-05-23] MEDS: Pantoprazole 40 MG VIAL IVP SCH (09:10)
[2022-05-23] MEDS: polyethylene glycoL 3350 17 GM POWD.PACK PO SCH (09:11)
[2022-05-23] MEDS: Lactobacillus 1 EACH CAP.SPRINK PO SCH ×2 (09:11→20:54)
[2022-05-23] MEDS: Docusate Oral Soln 100 MG/10 ML UDC PO SCH ×2 (09:11→20:54)
[2022-05-23] MEDS: *HR* OxyCODONE/APAP 10/325 TABLET PO PRN ×2 (09:13→20:54)
[2022-05-23] MEDS: Piperacillin/Tazobactam 3.375 GM in 0.9 % Sodium Chloride Mini Bag 100 ML IVPB SCH (17:38)
[2022-05-23] MEDS: Ondansetron ODT 4 MG TAB.RAPDIS SL PRN (21:31)
[2022-05-24] MEDS: Piperacillin/Tazobactam 3.375 GM in 0.9 % Sodium Chloride Mini Bag 100 ML IVPB SCH ×4 (01:45→23:24)
[2022-05-24] MEDS: Morphine Sulfate 2 MG/ML SYRINGE IVP PRN ×4 (02:37→23:36)
[2022-05-24] MEDS: Levalbuterol 1 PUFF INHALER IH SCH ×4 (04:43→15:38)
[2022-05-24] MEDS ORDERED: *HR* Heparin 10,000 UNIT/10 ML VIAL ONE (06:38)
[2022-05-24] MEDS ORDERED: 0.9 % Sodium Chloride 1,000 ML ONE ×2 (06:38→07:16)
[2022-05-24] MEDS ORDERED: Heparin 1,000 UNITS/500 mL 500 ML ONE (06:38)
[2022-05-24] MEDS ORDERED: Iopamidol - 300 100 ML INFUS..BTL ONE ×2 (06:39→07:24)
[2022-05-24] MEDS ORDERED: *HR* Midazolam HCl 2 MG/2 ML VIAL ONE (07:16)
[2022-05-24] MEDS: Tiotropium 10 INH DOSE IH SCH (07:19)
[2022-05-24] MEDS ORDERED: *HR* FentaNYL (PF) 100 MCG/2 ML VIAL ONE (07:37)
[2022-05-24] MEDS: Pantoprazole 40 MG VIAL IVP SCH (09:18)
[2022-05-24] MEDS: DilTIAZem CD (24hr) 240 MG CAP.ER.24H PO SCH (09:25)
[2022-05-24] MEDS: Lactobacillus 1 EACH CAP.SPRINK PO SCH ×2 (09:25→20:02)
[2022-05-24] MEDS: Magnesium Oxide 400 MG TABLET PO SCH ×2 (09:25→20:02)
[2022-05-24] MEDS: polyethylene glycoL 3350 17 GM POWD.PACK PO SCH (09:25)
[2022-05-24] MEDS: Docusate Oral Soln 100 MG/10 ML UDC PO SCH ×2 (09:30→20:02)
[2022-05-24] MEDS: Levalbuterol Neb 1.25 MG/3 ML IH PRN ×2 (10:59→15:38)
[2022-05-24 13:54] LABS: Hematocrit 28.8 % (37.5-50.1); Hemoglobin 9.1 g/dL (12.9-16.9); Mean Corpuscular HGB Conc 31.6 g/dL (31.6-35.5); Mean Corpuscular Volume 85.5 fL (83.0-100.0); Mean Platelet Volume 9.3 fL (9.4-12.4); Platelet Count 386 K/mcL (140-400); Red Blood Count 3.37 M/mcL (4.19-5.50); Red Cell Distribution Width 15.5 % (11.5-14.5); White Blood Count 7.1 K/mcL (4.3-11.1)
[2022-05-24 13:58] LABS: BUN/Creatinine Ratio 10 (6-26); Blood Urea Nitrogen 6 mg/dL (8-23); Calcium 8.3 mg/dL (8.6-10.3); Carbon Dioxide 31 mEq/L (23-29); Chloride 98 mEq/L (98-107); Glucose 85 mg/dL (70-105); Osmolality,Calculated 281 (280-300); Sodium 137 mEq/L (136-145)
[2022-05-24 15:06] LABS: Adenovirus Not Detected (Not Detect); Bordetella Pertussis Not Detected (Not Detect); Chlamydophila pneumoniae Not Detected (Not Detect); Coronavirus 229E Not Detected (Not Detect); Coronavirus HKU1 Not Detected (Not Detect); Coronavirus NL63 Not Detected (Not Detect); Coronavirus OC43 Not Detected (Not Detect); Human Metapneumovirus Not Detected (Not Detect); Human Rhinovirus/Enterovirus Not Detected (Not Detect); Influenza A Subtype 2009 H1 Not Detected (Not Detect); Influenza B Not Detected (Not Detect); Mycoplasma pneumoniae Not Detected (Not Detect); Parainfluenza Virus 1 Not Detected (Not Detect); Parainfluenza Virus 2 Not Detected (Not Detect); Parainfluenza Virus 3 Not Detected (Not Detect); Parainfluenza Virus 4 Not Detected (Not Detect); Respiratory Syncytial Virus Not Detected (Not Detect); SARS-CoV-2 Not Detected (Not Detect)
[2022-05-24] MEDS: *HR* Rivaroxaban 10 MG TABLET PO SCH (15:54)
[2022-05-24] MEDS ORDERED: Levalbuterol 1 PUFF INHALER IH PRN (16:20)
[2022-05-24] MEDS: *HR* OxyCODONE/APAP 10/325 TABLET PO PRN (20:02)
[2022-05-24] MEDS ORDERED: SODIUM CHLORIDE/NAHCO3/KCL/PEG 4,000 ML SOLN.RECON PO ONE (20:06)
[2022-05-24] MEDS: Levalbuterol Neb 1.25 MG/3 ML IH SCH ×2 (20:17→22:41)
[2022-05-25] MEDS: Levalbuterol Neb 1.25 MG/3 ML IH SCH ×4 (04:27→22:50)
[2022-05-25 05:25] LABS: Hematocrit 25.7 % (37.5-50.1); Hemoglobin 8.4 g/dL (12.9-16.9); Mean Corpuscular HGB Conc 32.7 g/dL (31.6-35.5); Mean Corpuscular Hemoglobin 27.6 pg (28.0-33.3); Mean Corpuscular Volume 84.5 fL (83.0-100.0); Mean Platelet Volume 9.3 fL (9.4-12.4); Platelet Count 348 K/mcL (140-400); Red Blood Count 3.04 M/mcL (4.19-5.50); Red Cell Distribution Width 15.4 % (11.5-14.5); White Blood Count 7.2 K/mcL (4.3-11.1)
[2022-05-25 05:40] LABS: BUN/Creatinine Ratio 12 (6-26); Blood Urea Nitrogen 8 mg/dL (8-23); Calcium 8.6 mg/dL (8.6-10.3); Carbon Dioxide 30 mEq/L (23-29); Chloride 99 mEq/L (98-107); Glucose 99 mg/dL (70-105); Osmolality,Calculated 282 (280-300); Potassium 3.2 mEq/L (3.5-5.1); Sodium 137 mEq/L (136-145)
[2022-05-25] MEDS: Piperacillin/Tazobactam 3.375 GM in 0.9 % Sodium Chloride Mini Bag 100 ML IVPB SCH ×2 (08:50→16:07)
[2022-05-25] MEDS: Morphine Sulfate 2 MG/ML SYRINGE IVP PRN ×2 (08:51→15:15)
[2022-05-25] MEDS: Tiotropium 10 INH DOSE IH SCH (10:22)
[2022-05-25] MEDS: Pantoprazole 40 MG VIAL IVP SCH (11:10)
[2022-05-25] MEDS: *HR* OxyCODONE/APAP 10/325 TABLET PO PRN ×2 (13:53→21:18)
[2022-05-25] MEDS: DilTIAZem CD (24hr) 240 MG CAP.ER.24H PO SCH (14:42)
[2022-05-25] MEDS: Docusate Oral Soln 100 MG/10 ML UDC PO SCH ×2 (14:43→21:18)
[2022-05-25] MEDS: Lactobacillus 1 EACH CAP.SPRINK PO SCH ×2 (14:43→21:19)
[2022-05-25] MEDS: Magnesium Oxide 400 MG TABLET PO SCH ×2 (14:43→21:18)
[2022-05-25] MEDS: hydroCHLOROthiazide 25 MG TABLET PO SCH (14:43)
[2022-05-25] MEDS: polyethylene glycoL 3350 17 GM POWD.PACK PO SCH (14:43)
[2022-05-25] MEDS: *HR* Rivaroxaban 10 MG TABLET PO SCH (16:07)
[2022-05-26] MEDS: Piperacillin/Tazobactam 3.375 GM in 0.9 % Sodium Chloride Mini Bag 100 ML IVPB SCH ×3 (00:50→16:25)
[2022-05-26] MEDS: Morphine Sulfate 2 MG/ML SYRINGE IVP PRN (00:54)
[2022-05-26 03:25] LABS: BUN/Creatinine Ratio 13 (6-26); Blood Urea Nitrogen 8 mg/dL (8-23); Calcium 8.4 mg/dL (8.6-10.3); Carbon Dioxide 27 mEq/L (23-29); Chloride 102 mEq/L (98-107); Glucose 82 mg/dL (70-105); Osmolality,Calculated 287 (280-300); Potassium 3.6 mEq/L (3.5-5.1); Sodium 140 mEq/L (136-145)
[2022-05-26] MEDS: Levalbuterol Neb 1.25 MG/3 ML IH SCH ×3 (04:22→15:41)
[2022-05-26] MEDS: *HR* OxyCODONE/APAP 10/325 TABLET PO PRN ×3 (05:28→16:39)
[2022-05-26] MEDS: Magnesium Oxide 400 MG TABLET PO SCH (09:21)
[2022-05-26] MEDS: Lactobacillus 1 EACH CAP.SPRINK PO SCH (09:21)
[2022-05-26] MEDS: DilTIAZem CD (24hr) 240 MG CAP.ER.24H PO SCH (09:21)
[2022-05-26] MEDS: hydroCHLOROthiazide 25 MG TABLET PO SCH (09:21)
[2022-05-26] MEDS: polyethylene glycoL 3350 17 GM POWD.PACK PO SCH ×2 (09:22→09:30)
[2022-05-26] MEDS: Ondansetron ODT 4 MG TAB.RAPDIS SL PRN (09:24)
[2022-05-26] MEDS: Tiotropium 10 INH DOSE IH SCH (10:37)
[2022-05-26 13:22] LABS: Adenovirus Not Detected (Not Detect); Bordetella Pertussis Not Detected (Not Detect); Chlamydophila pneumoniae Not Detected (Not Detect); Coronavirus 229E Not Detected (Not Detect); Coronavirus HKU1 Not Detected (Not Detect); Coronavirus NL63 Not Detected (Not Detect); Coronavirus OC43 Not Detected (Not Detect); Human Metapneumovirus Not Detected (Not Detect); Human Rhinovirus/Enterovirus Not Detected (Not Detect); Influenza A Subtype 2009 H1 Not Detected (Not Detect); Influenza B Not Detected (Not Detect); Mycoplasma pneumoniae Not Detected (Not Detect); Parainfluenza Virus 1 Not Detected (Not Detect); Parainfluenza Virus 2 Not Detected (Not Detect); Parainfluenza Virus 3 Not Detected (Not Detect); Parainfluenza Virus 4 Not Detected (Not Detect); Respiratory Syncytial Virus Not Detected (Not Detect); SARS-CoV-2 Not Detected (Not Detect)
[2022-05-26 15:20] VITALS: BP 116/77; PULSE 91; TEMP 97.8
[2022-05-26 15:42] VITALS: O2SAT 94
== END 2022-05-26 16:44 | disposition other institution (70) | DRG 166 ==
LOC: EMEROOARM 15:23 → 3ANU 15:23 → SUATTDRO 19:52 → 3ANU 21:03 → SUATTDRO 05-05 10:36
PROVIDERS: ADMIT Student in an Organized Health Care Education/Training Program; ATTEND Internal Medicine

== ENCOUNTER 2022-06-14 13:48 | Inpatient (IN) ==
[2022-06-14] MEDS ORDERED: 0.9 % Sodium Chloride 1,000 ML IV ONE ×2 (17:07→21:30)
[2022-06-14 17:27] LABS: Basophils # 0.1 K/mcL (0.0-0.2); Basophils % 0.9 %; Eosinophils # 0.3 K/mcL (0.0-0.6); Eosinophils % 3.2 %; Hematocrit 37.4 % (37.5-50.1); Hemoglobin 11.5 g/dL (12.9-16.9); Immature Granulocytes % 0.4 % (0-4); Lymphocytes # 3.5 K/mcL (0.6-4.6); Lymphocytes % 37.7 %; Mean Corpuscular HGB Conc 30.7 g/dL (31.6-35.5); Mean Corpuscular Hemoglobin 26.3 pg (28.0-33.3); Mean Corpuscular Volume 85.4 fL (83.0-100.0); Mean Platelet Volume 9.9 fL (9.4-12.4); Monocytes # 0.6 K/mcL (0.0-1.3); Monocytes % 6.7 %; Neutrophils # 4.8 K/mcL (1.6-8.9); Platelet Count 485 K/mcL (140-400); Red Blood Count 4.38 M/mcL (4.19-5.50); Red Cell Distribution Width 16.3 % (11.5-14.5); Segmented Neutrophils % 51.1 %; White Blood Count 9.3 K/mcL (4.3-11.1)
[2022-06-14 17:33] LABS: INR 1.3
[2022-06-14 17:36] LABS: Activated Partial Thrombo Time 32.4 Seconds (26.0-36.0)
[2022-06-14 17:48] LABS: BUN/Creatinine Ratio 11 (6-26); Blood Urea Nitrogen 7 mg/dL (8-23); Calcium 10.4 mg/dL (8.6-10.3); Carbon Dioxide 19 mEq/L (23-29); Chloride 101 mEq/L (98-107); Glucose 78 mg/dL (70-105); Magnesium 1.4 mg/dL (1.6-2.6); Osmolality,Calculated 283 (280-300); Potassium 3.7 mEq/L (3.5-5.1); Sodium 138 mEq/L (136-145); Troponin I < 0.03 ng/mL (< 0.04)
[2022-06-14 22:12] LABS: Bilirubin,Urine Negative (Negative); Blood,Urine Negative (Negative); Clarity,Urine Clear (Clear); Color,Urine Yellow (Yellow); Glucose,Urine (UA) Normal (Normal); Hyaline Casts,Urine Few per lpf (None Seen); Ketones,Urine 150 mg/dL (Negative); Leukocyte Esterase,Urine Negative (Negative); Mucus,Urine Few per lpf (None-Few); Nitrite,Urine Negative (Negative); Protein,Urine 30 mg/dL (Neg-Trace); RBC,Urine 0-3 per hpf (0-3); Specific Gravity,Urine 1.024 (1.010-1.025); Urobilinogen,Urine Normal (Normal); WBC,Urine 0-3 per hpf (0-3)
[2022-06-14 23:12] LABS: Influenza A PCR Negative (Negative); Influenza B PCR Negative (Negative); Resp. Syncytial Virus PCR Negative (Negative)
[2022-06-14 23:15] LABS: SARS-CoV-2 by PCR (In House) Negative (Negative)
[2022-06-14] MEDS ORDERED: Furosemide 40 MG/4 ML VIAL IVP ONE (23:26)
[2022-06-14] MEDS ORDERED: Naloxone 0.4 MG/ML INJ IVP PRN (23:31)
[2022-06-15] MEDS: DilTIAZem CD (24hr) 240 MG CAP.ER.24H PO SCH (08:38)
[2022-06-15] MEDS: Megestrol Acetate 400 MG/10 ML UDC PO SCH (08:38)
[2022-06-15] MEDS: *HR* Rivaroxaban 10 MG TABLET PO SCH (08:38)
[2022-06-15] MEDS: Ondansetron ODT 4 MG TAB.RAPDIS SL PRN (08:48)
[2022-06-15 09:39] LABS: Hematocrit 36.5 % (37.5-50.1); Hemoglobin 11.6 g/dL (12.9-16.9); Mean Corpuscular HGB Conc 31.8 g/dL (31.6-35.5); Mean Corpuscular Hemoglobin 26.4 pg (28.0-33.3); Mean Corpuscular Volume 83.1 fL (83.0-100.0); Mean Platelet Volume 10.1 fL (9.4-12.4); Platelet Count 441 K/mcL (140-400); Red Blood Count 4.39 M/mcL (4.19-5.50); Red Cell Distribution Width 16.1 % (11.5-14.5); White Blood Count 8.2 K/mcL (4.3-11.1)
[2022-06-15] MEDS: Budesonide/Formoterol 160/4.5 1 PUFF INH IH SCH ×2 (09:42→19:45)
[2022-06-15] MEDS: Tiotropium 10 INH DOSE IH SCH (09:43)
[2022-06-15 09:53] LABS: Albumin 3.6 g/dL (3.5-5.7); Albumin/Globulin Ratio 1.4 (1.1-2.2); Bilirubin,Direct 0.1 mg/dL (0.0-0.2); Bilirubin,Indirect 0.3 mg/dL (0.0-1.0); Bilirubin,Total 0.4 mg/dL (0.3-1.0); Globulin 2.6 g/dL (2.4-3.5); Total Protein 6.2 g/dL (6.4-8.9)
[2022-06-15 09:57] LABS: BUN/Creatinine Ratio 9 (6-26); Blood Urea Nitrogen 5 mg/dL (8-23); Calcium 9.5 mg/dL (8.6-10.3); Carbon Dioxide 21 mEq/L (23-29); Chloride 100 mEq/L (98-107); Glucose 78 mg/dL (70-105); Magnesium 1.2 mg/dL (1.6-2.6); Osmolality,Calculated 284 (280-300); Phosphorous 4.1 mg/dL (2.7-4.5); Potassium 3.1 mEq/L (3.5-5.1); Sodium 139 mEq/L (136-145)
[2022-06-15] MEDS ORDERED: Potassium Chloride Elixir 20 MEQ/15 ML UDC PO ONE (11:15)
[2022-06-15] MEDS ORDERED: Iopamidol - 370 500 ML MLS IVP ONE (11:43)
[2022-06-15] MEDS: *HR* OxyCODONE/APAP 7.5/325 TABLET PO PRN ×2 (13:15→20:42)
[2022-06-15] MEDS: Ipratropium/Albuterol Neb 3 ML IH PRN (19:44)
[2022-06-15] MEDS: Mirtazapine 15 MG TABLET PO SCH (20:42)
[2022-06-15] MEDS: Magnesium Oxide 400 MG TABLET PO SCH (20:42)
[2022-06-15] MEDS: Melatonin 3 MG TABLET PO PRN (20:42)
[2022-06-16 05:10] LABS: Basophils # 0.1 K/mcL (0.0-0.2); Eosinophils # 0.3 K/mcL (0.0-0.6); Hematocrit 34.1 % (37.5-50.1); Hemoglobin 10.8 g/dL (12.9-16.9); Immature Granulocytes % 0.3 % (0-4); Lymphocytes # 2.3 K/mcL (0.6-4.6); Lymphocytes % 38.8 %; Mean Corpuscular HGB Conc 31.7 g/dL (31.6-35.5); Mean Corpuscular Hemoglobin 26.2 pg (28.0-33.3); Mean Corpuscular Volume 82.8 fL (83.0-100.0); Mean Platelet Volume 10.1 fL (9.4-12.4); Monocytes # 0.5 K/mcL (0.0-1.3); Monocytes % 8.2 %; Neutrophils # 2.8 K/mcL (1.6-8.9); Platelet Count 403 K/mcL (140-400); Red Blood Count 4.12 M/mcL (4.19-5.50); Red Cell Distribution Width 16.3 % (11.5-14.5); Segmented Neutrophils % 46.7 %
[2022-06-16 05:15] LABS: BUN/Creatinine Ratio 10 (6-26); Blood Urea Nitrogen 6 mg/dL (8-23); Calcium 9.5 mg/dL (8.6-10.3); Carbon Dioxide 23 mEq/L (23-29); Chloride 101 mEq/L (98-107); Glucose 70 mg/dL (70-105); Magnesium 1.7 mg/dL (1.6-2.6); Osmolality,Calculated 284 (280-300); Potassium 3.5 mEq/L (3.5-5.1); Sodium 139 mEq/L (136-145)
[2022-06-16] MEDS: *HR* OxyCODONE/APAP 7.5/325 TABLET PO PRN (05:53)
[2022-06-16] MEDS: *HR* Rivaroxaban 10 MG TABLET PO SCH (09:04)
[2022-06-16] MEDS: polyethylene glycoL 3350 17 GM POWD.PACK PO SCH (09:05)
[2022-06-16] MEDS: Magnesium Oxide 400 MG TABLET PO SCH ×2 (09:07→22:06)
[2022-06-16] MEDS: DilTIAZem CD (24hr) 240 MG CAP.ER.24H PO SCH (09:07)
[2022-06-16] MEDS: (Roflumilast [Daliresp] 500 MCG Tablet) PO SCH (09:08)
[2022-06-16] MEDS: Megestrol Acetate 400 MG/10 ML UDC PO SCH (09:09)
[2022-06-16] MEDS: Tiotropium 10 INH DOSE IH SCH (10:35)
[2022-06-16] MEDS: Budesonide/Formoterol 160/4.5 1 PUFF INH IH SCH ×2 (10:35→20:20)
[2022-06-16] MEDS: Acetaminophen 325 MG TABLET PO PRN (13:31)
[2022-06-16] MEDS: Mirtazapine 15 MG TABLET PO SCH (22:06)
[2022-06-16] MEDS ORDERED: Gabapentin 100 MG CAPSULE PO ONE (23:09)
[2022-06-17 02:02] LABS: Basophils % 0.6 %; Eosinophils # 0.3 K/mcL (0.0-0.6); Eosinophils % 3.9 %; Hematocrit 33.9 % (37.5-50.1); Hemoglobin 10.8 g/dL (12.9-16.9); Immature Granulocytes % 0.4 % (0-4); Lymphocytes # 2.6 K/mcL (0.6-4.6); Lymphocytes % 37.3 %; Mean Corpuscular HGB Conc 31.9 g/dL (31.6-35.5); Mean Corpuscular Hemoglobin 26.7 pg (28.0-33.3); Mean Corpuscular Volume 83.9 fL (83.0-100.0); Mean Platelet Volume 9.9 fL (9.4-12.4); Monocytes # 0.5 K/mcL (0.0-1.3); Monocytes % 7.9 %; Neutrophils # 3.4 K/mcL (1.6-8.9); Platelet Count 355 K/mcL (140-400); Red Blood Count 4.04 M/mcL (4.19-5.50); Red Cell Distribution Width 16.1 % (11.5-14.5); Segmented Neutrophils % 49.9 %; White Blood Count 6.9 K/mcL (4.3-11.1)
[2022-06-17 02:21] LABS: BUN/Creatinine Ratio 16 (6-26); Blood Urea Nitrogen 9 mg/dL (8-23); Calcium 9.3 mg/dL (8.6-10.3); Carbon Dioxide 24 mEq/L (23-29); Chloride 102 mEq/L (98-107); Glucose 96 mg/dL (70-105); Magnesium 1.4 mg/dL (1.6-2.6); Osmolality,Calculated 283 (280-300); Potassium 3.5 mEq/L (3.5-5.1); Sodium 137 mEq/L (136-145)
[2022-06-17] MEDS: Budesonide/Formoterol 160/4.5 1 PUFF INH IH SCH ×2 (07:19→19:42)
[2022-06-17] MEDS: Tiotropium 10 INH DOSE IH SCH (07:19)
[2022-06-17] MEDS: Acetaminophen 325 MG TABLET PO PRN ×2 (08:43→20:36)
[2022-06-17] MEDS: Magnesium Oxide 400 MG TABLET PO SCH ×2 (08:44→20:37)
[2022-06-17] MEDS: DilTIAZem CD (24hr) 240 MG CAP.ER.24H PO SCH (08:44)
[2022-06-17] MEDS: polyethylene glycoL 3350 17 GM POWD.PACK PO SCH (08:45)
[2022-06-17] MEDS: Megestrol Acetate 400 MG/10 ML UDC PO SCH (08:45)
[2022-06-17] MEDS: (Roflumilast [Daliresp] 500 MCG Tablet) PO SCH (09:57)
[2022-06-17] MEDS: Mirtazapine 15 MG TABLET PO SCH (20:37)
[2022-06-17] MEDS: Melatonin 3 MG TABLET PO PRN (20:37)
[2022-06-17] MEDS ORDERED: Gabapentin 100 MG CAPSULE PO ONE (23:09)
[2022-06-18] MEDS: Acetaminophen 325 MG TABLET PO PRN (03:18)
[2022-06-18] MEDS: Tiotropium 10 INH DOSE IH SCH (07:28)
[2022-06-18] MEDS: Budesonide/Formoterol 160/4.5 1 PUFF INH IH SCH ×2 (07:28→19:50)
[2022-06-18] MEDS: DilTIAZem CD (24hr) 240 MG CAP.ER.24H PO SCH (08:54)
[2022-06-18] MEDS: Magnesium Oxide 400 MG TABLET PO SCH ×2 (08:55→20:07)
[2022-06-18] MEDS: polyethylene glycoL 3350 17 GM POWD.PACK PO SCH (08:56)
[2022-06-18] MEDS: (Roflumilast [Daliresp] 500 MCG Tablet) PO SCH (10:20)
[2022-06-18] MEDS: Megestrol Acetate 400 MG/10 ML UDC PO SCH (10:41)
[2022-06-18] MEDS: Mirtazapine 15 MG TABLET PO SCH (20:07)
[2022-06-19 05:26] LABS: Basophils % 0.6 %; Eosinophils # 0.3 K/mcL (0.0-0.6); Eosinophils % 4.7 %; Hemoglobin 10.1 g/dL (12.9-16.9); Immature Granulocytes % 0.4 % (0-4); Lymphocytes # 2.8 K/mcL (0.6-4.6); Lymphocytes % 39.6 %; Mean Corpuscular HGB Conc 31.6 g/dL (31.6-35.5); Mean Corpuscular Hemoglobin 26.4 pg (28.0-33.3); Mean Corpuscular Volume 83.8 fL (83.0-100.0); Mean Platelet Volume 10.5 fL (9.4-12.4); Monocytes # 0.6 K/mcL (0.0-1.3); Monocytes % 9.1 %; Neutrophils # 3.2 K/mcL (1.6-8.9); Platelet Count 276 K/mcL (140-400); Red Blood Count 3.82 M/mcL (4.19-5.50); Red Cell Distribution Width 16.1 % (11.5-14.5); Segmented Neutrophils % 45.6 %
[2022-06-19 05:46] LABS: BUN/Creatinine Ratio 17 (6-26); Blood Urea Nitrogen 11 mg/dL (8-23); Calcium 9.4 mg/dL (8.6-10.3); Carbon Dioxide 29 mEq/L (23-29); Chloride 104 mEq/L (98-107); Glucose 97 mg/dL (70-105); Magnesium 1.4 mg/dL (1.6-2.6); Osmolality,Calculated 289 (280-300); Potassium 3.4 mEq/L (3.5-5.1); Sodium 140 mEq/L (136-145)
[2022-06-19] MEDS: Tiotropium 10 INH DOSE IH SCH (07:25)
[2022-06-19] MEDS: Budesonide/Formoterol 160/4.5 1 PUFF INH IH SCH ×2 (07:25→20:29)
[2022-06-19] MEDS: Albuterol 2.5 MG/3 ML NEBULIZER IH PRN (07:26)
[2022-06-19] MEDS: DilTIAZem CD (24hr) 240 MG CAP.ER.24H PO SCH (08:22)
[2022-06-19] MEDS: Magnesium Oxide 400 MG TABLET PO SCH (08:22)
[2022-06-19] MEDS: polyethylene glycoL 3350 17 GM POWD.PACK PO SCH (08:23)
[2022-06-19] MEDS: Acetaminophen 325 MG TABLET PO PRN (08:23)
[2022-06-19] MEDS: (Roflumilast [Daliresp] 500 MCG Tablet) PO SCH (08:23)
[2022-06-19] MEDS: Megestrol Acetate 400 MG/10 ML UDC PO SCH (08:24)
[2022-06-19] MEDS ORDERED: Simethicone 40 MG/0.6 ML MLS IR ONE (09:51)
[2022-06-19] MEDS ORDERED: Ketamine *HR* 500 MG/10 ML MDV ONE (10:00)
[2022-06-19] MEDS ORDERED: Lidocaine -MPF 2% 5 ML VIAL ONE ×2 (10:21→16:59)
[2022-06-19] MEDS ORDERED: *HR* HYDROMORPHONE 2 MG/ML VIAL ONE (11:01)
[2022-06-19] MEDS ORDERED: Ringers Solution, Lactated 1,000 ML IVC ONE (16:28)
[2022-06-19] MEDS ORDERED: Ringers Solution, Lactated 1,000 ML ONE (16:34)
[2022-06-19] MEDS ORDERED: *HR* HYDROmorphone (PF) 1 MG/ML SYRINGE IVP ONE (16:34)
[2022-06-19] MEDS ORDERED: 0.9 % Sodium Chloride 250 ML IVC SCH (16:45)
[2022-06-19] MEDS ORDERED: Pantoprazole 40 MG VIAL IVP ONE ×2 (16:46→16:48)
[2022-06-19 16:54] LABS: Hematocrit 30.2 % (37.5-50.1); Hemoglobin 9.5 g/dL (12.9-16.9)
[2022-06-19] MEDS ORDERED: *HR* Succinylcholine 200 MG/10 ML VIAL IVP ONE (16:59)
[2022-06-19] MEDS ORDERED: *HR* Propofol 200 MG/20 ML VIAL IVP ONE ×2 (16:59)
[2022-06-19] MEDS ORDERED: *HR* Rocuronium Bromide 50 MG/5 ML VIAL ONE (17:09)
[2022-06-19] MEDS ORDERED: *HR* FentaNYL (PF) 100 MCG/2 ML VIAL ONE (17:16)
[2022-06-19 17:17] LABS: INR 1.2; Prothrombin Time 13.9 Seconds (9.4-12.1)
[2022-06-19] MEDS ORDERED: FentaNYL (PF) 1,000 MCG/100 ML IV.SOLN ONE (17:20)
[2022-06-19] MEDS ORDERED: *HR* Midazolam HCl 2 MG/2 ML VIAL ONE (17:47)
[2022-06-19] MEDS ORDERED: *HR* Etomidate 20 MG/10 ML AMPUL IVP ONE (18:00)
[2022-06-19] MEDS ORDERED: *HR* Midazolam HCl 2 MG/2 ML VIAL IVP ONE (18:00)
[2022-06-19 18:29] LABS: Hematocrit 34.1 % (37.5-50.1); Mean Corpuscular HGB Conc 32.3 g/dL (31.6-35.5); Mean Corpuscular Hemoglobin 26.9 pg (28.0-33.3); Mean Corpuscular Volume 83.4 fL (83.0-100.0); Mean Platelet Volume 10.3 fL (9.4-12.4); Platelet Count 237 K/mcL (140-400); Red Blood Count 4.09 M/mcL (4.19-5.50)
[2022-06-19 18:31] LABS: White Blood Count 13.9 K/mcL (4.3-11.1)
[2022-06-19] MEDS: FentaNYL (PF) 1,000 MCG/100 ML IV.SOLN IVC SCH ×2 (18:53→23:52)
[2022-06-19 19:23] LABS: ABG Base Excess 2 mEq/L (-2 to 3); ABG HCO3 27 mEq/L (21-27); ABG Oxygen Saturation 100 % (95-98); ABG PCO2 45 mmHg (35-45); ABG PH 7.39 pH Units (7.32-7.45); ABG PO2 300 mmHg (85-104); ABG TCO2 28 mEq/L (20-26); Blood Gas Modality ASSIST CONTROL; Blood Gas VT 500 cc
[2022-06-19] MEDS ORDERED: *HR* Midazolam HCl 5 MG/5 ML VIAL IVP ONE ×2 (19:27)
[2022-06-19] MEDS: Pantoprazole 40 MG in 0.9 % Sodium Chloride Mini Bag 100 ML IVC SCH ×2 (20:31→21:31)
[2022-06-19 21:48] LABS: Hemoglobin 11.8 g/dL (12.9-16.9)
[2022-06-19 21:54] LABS: INR 1.2; Prothrombin Time 13.6 Seconds (9.4-12.1)
[2022-06-19 21:57] LABS: Activated Partial Thrombo Time 31.7 Seconds (26.0-36.0)
[2022-06-19 22:05] LABS: Alanine Aminotransferase 6 Units/L (7-52); Albumin 3.2 g/dL (3.5-5.7); Albumin/Globulin Ratio 1.5 (1.1-2.2); Alkaline Phosphatase 95 Units/L (34-104); Aspartate Amino Transferase 16 Units/L (13-39); BUN/Creatinine Ratio 20 (6-26); Bilirubin,Total 0.6 mg/dL (0.3-1.0); Blood Urea Nitrogen 13 mg/dL (8-23); Calcium 8.9 mg/dL (8.6-10.3); Carbon Dioxide 26 mEq/L (23-29); Chloride 103 mEq/L (98-107); Globulin 2.2 g/dL (2.4-3.5); Glucose 141 mg/dL (70-105); Osmolality,Calculated 288 (280-300); Potassium 4.7 mEq/L (3.5-5.1); Sodium 138 mEq/L (136-145); Total Protein 5.4 g/dL (6.4-8.9)
[2022-06-20] MEDS: Mirtazapine 15 MG TABLET PO SCH ×2 (00:35→19:37)
[2022-06-20] MEDS: Magnesium Oxide 400 MG TABLET PO SCH ×3 (00:35→19:35)
[2022-06-20 04:20] LABS: Basophils % 0.1 %; Eosinophils % 0.1 %; Hematocrit 31.6 % (37.5-50.1); Hemoglobin 10.5 g/dL (12.9-16.9); Immature Granulocytes % 0.5 % (0-4); Lymphocytes # 1.3 K/mcL (0.6-4.6); Lymphocytes % 17.6 %; Mean Corpuscular HGB Conc 33.2 g/dL (31.6-35.5); Mean Corpuscular Hemoglobin 27.5 pg (28.0-33.3); Mean Corpuscular Volume 82.7 fL (83.0-100.0); Mean Platelet Volume 10.8 fL (9.4-12.4); Monocytes # 0.1 K/mcL (0.0-1.3); Monocytes % 1.9 %; Neutrophils # 5.8 K/mcL (1.6-8.9); Platelet Count 248 K/mcL (140-400); Red Blood Count 3.82 M/mcL (4.19-5.50); Red Cell Distribution Width 16.2 % (11.5-14.5); Segmented Neutrophils % 79.8 %; White Blood Count 7.3 K/mcL (4.3-11.1)
[2022-06-20 04:28] LABS: INR 1.2
[2022-06-20 04:34] LABS: VBG Ionized Calcium 1.13 mmol/L (1.15-1.35)
[2022-06-20 04:37] LABS: Alanine Aminotransferase 7 Units/L (7-52); Albumin 3.1 g/dL (3.5-5.7); Albumin/Globulin Ratio 1.5 (1.1-2.2); Alkaline Phosphatase 87 Units/L (34-104); Aspartate Amino Transferase 14 Units/L (13-39); BUN/Creatinine Ratio 28 (6-26); Bilirubin,Total 0.4 mg/dL (0.3-1.0); Blood Urea Nitrogen 18 mg/dL (8-23); Calcium 8.7 mg/dL (8.6-10.3); Carbon Dioxide 24 mEq/L (23-29); Chloride 104 mEq/L (98-107); Globulin 2.1 g/dL (2.4-3.5); Glucose 160 mg/dL (70-105); Magnesium 1.5 mg/dL (1.6-2.6); Osmolality,Calculated 291 (280-300); Phosphorous 5.5 mg/dL (2.7-4.5); Potassium 4.7 mEq/L (3.5-5.1); Sodium 138 mEq/L (136-145); Total Protein 5.2 g/dL (6.4-8.9)
[2022-06-20] MEDS: Pantoprazole 40 MG in 0.9 % Sodium Chloride Mini Bag 100 ML IVC SCH ×5 (04:53→23:44)
[2022-06-20 05:13] LABS: ABG Base Excess -2 mEq/L (-2 to 3); ABG HCO3 23 mEq/L (21-27); ABG Oxygen Saturation 92 % (95-98); ABG PCO2 37 mmHg (35-45); ABG PH 7.41 pH Units (7.32-7.45); ABG PO2 62 mmHg (85-104); ABG TCO2 24 mEq/L (20-26); Blood Gas Modality ASSIST CONTROL; Blood Gas VT 500 cc
[2022-06-20] MEDS: DilTIAZem CD (24hr) 240 MG CAP.ER.24H PO SCH (07:31)
[2022-06-20] MEDS: Megestrol Acetate 400 MG/10 ML UDC PO SCH (07:31)
[2022-06-20] MEDS: polyethylene glycoL 3350 17 GM POWD.PACK PO SCH (07:31)
[2022-06-20] MEDS: Tiotropium 10 INH DOSE IH SCH (08:00)
[2022-06-20] MEDS: Budesonide/Formoterol 160/4.5 1 PUFF INH IH SCH ×2 (08:00→20:08)
[2022-06-20] MEDS: FentaNYL (PF) 1,000 MCG/100 ML IV.SOLN IVC SCH (08:25)
[2022-06-20 11:00] LABS: Hematocrit 34.2 % (37.5-50.1); Hemoglobin 11.2 g/dL (12.9-16.9)
[2022-06-20 14:14] LABS: Hematocrit 30.6 % (37.5-50.1); Hemoglobin 9.7 g/dL (12.9-16.9)
[2022-06-20] MEDS ORDERED: *HR* LORazepam 0.5 MG TABLET GTUBE ONE (14:49)
[2022-06-20] MEDS: Melatonin 3 MG TABLET PO PRN (19:35)
[2022-06-20 20:40] LABS: Hemoglobin 8.7 g/dL (12.9-16.9)
[2022-06-20] MEDS ORDERED: Iopamidol - 370 500 ML MLS IVP ONE (22:41)
[2022-06-21] MEDS: Pantoprazole 40 MG in 0.9 % Sodium Chloride Mini Bag 100 ML IVC SCH ×4 (04:53→21:00)
[2022-06-21 05:06] LABS: Basophils % 0.4 %; Eosinophils # 0.1 K/mcL (0.0-0.6); Eosinophils % 1.1 %; Hematocrit 26.5 % (37.5-50.1); Hemoglobin 8.8 g/dL (12.9-16.9); Immature Granulocytes % 0.4 % (0-4); Lymphocytes # 2.3 K/mcL (0.6-4.6); Lymphocytes % 27.6 %; Mean Corpuscular HGB Conc 33.2 g/dL (31.6-35.5); Mean Corpuscular Hemoglobin 27.8 pg (28.0-33.3); Mean Corpuscular Volume 83.9 fL (83.0-100.0); Mean Platelet Volume 10.6 fL (9.4-12.4); Monocytes # 0.6 K/mcL (0.0-1.3); Monocytes % 7.3 %; Neutrophils # 5.4 K/mcL (1.6-8.9); Platelet Count 183 K/mcL (140-400); Red Blood Count 3.16 M/mcL (4.19-5.50); Red Cell Distribution Width 16.2 % (11.5-14.5); Segmented Neutrophils % 63.2 %; White Blood Count 8.5 K/mcL (4.3-11.1)
[2022-06-21 05:12] LABS: VBG Ionized Calcium 1.07 mmol/L (1.15-1.35)
[2022-06-21 05:13] LABS: INR 1.1
[2022-06-21 05:24] LABS: Alkaline Phosphatase 66 Units/L (34-104); Aspartate Amino Transferase 13 Units/L (13-39); BUN/Creatinine Ratio 39 (6-26); Bilirubin,Total 0.4 mg/dL (0.3-1.0); Blood Urea Nitrogen 30 mg/dL (8-23); Calcium 8.2 mg/dL (8.6-10.3); Carbon Dioxide 26 mEq/L (23-29); Chloride 104 mEq/L (98-107); Glucose 85 mg/dL (70-105); Magnesium 1.8 mg/dL (1.6-2.6); Osmolality,Calculated 289 (280-300); Phosphorous 2.9 mg/dL (2.7-4.5); Potassium 3.6 mEq/L (3.5-5.1); Sodium 137 mEq/L (136-145)
[2022-06-21 05:25] LABS: Alanine Aminotransferase 5 Units/L (7-52); Albumin 2.8 g/dL (3.5-5.7); Albumin/Globulin Ratio 1.4 (1.1-2.2); Total Protein 4.8 g/dL (6.4-8.9)
[2022-06-21] MEDS ORDERED: Potassium Chloride Elixir 20 MEQ/15 ML UDC GTUBE ONE (07:45)
[2022-06-21] MEDS: Magnesium Oxide 400 MG TABLET PO SCH ×2 (08:00→19:28)
[2022-06-21] MEDS ORDERED: *HR* LORazepam 0.5 MG TABLET GTUBE ONE (08:00)
[2022-06-21] MEDS: Megestrol Acetate 400 MG/10 ML UDC PO SCH (08:00)
[2022-06-21] MEDS: polyethylene glycoL 3350 17 GM POWD.PACK PO SCH (08:00)
[2022-06-21] MEDS: DilTIAZem CD (24hr) 240 MG CAP.ER.24H PO SCH (08:00)
[2022-06-21 08:24] LABS: Hematocrit 25.9 % (37.5-50.1); Hemoglobin 8.3 g/dL (12.9-16.9)
[2022-06-21] MEDS: Tiotropium 10 INH DOSE IH SCH (08:28)
[2022-06-21] MEDS: Budesonide/Formoterol 160/4.5 1 PUFF INH IH SCH ×2 (08:29→20:13)
[2022-06-21] MEDS: Ipratropium/Albuterol Neb 3 ML IH PRN (11:36)
[2022-06-21 15:12] LABS: Hematocrit 27.9 % (37.5-50.1)
[2022-06-21] MEDS: Ondansetron ODT 4 MG TAB.RAPDIS SL PRN (17:46)
[2022-06-21] MEDS: Mirtazapine 15 MG TABLET PO SCH (19:28)
[2022-06-22] MEDS: Pantoprazole 40 MG in 0.9 % Sodium Chloride Mini Bag 100 ML IVC SCH ×2 (02:21→08:12)
[2022-06-22 07:46] LABS: Basophils % 0.4 %; Eosinophils # 0.2 K/mcL (0.0-0.6); Eosinophils % 2.5 %; Hematocrit 27.1 % (37.5-50.1); Hemoglobin 8.6 g/dL (12.9-16.9); Immature Granulocytes % 0.6 % (0-4); Lymphocytes # 2.1 K/mcL (0.6-4.6); Lymphocytes % 26.8 %; Mean Corpuscular HGB Conc 31.7 g/dL (31.6-35.5); Mean Corpuscular Hemoglobin 27.6 pg (28.0-33.3); Mean Corpuscular Volume 86.9 fL (83.0-100.0); Monocytes # 0.5 K/mcL (0.0-1.3); Monocytes % 6.8 %; Neutrophils # 4.9 K/mcL (1.6-8.9); Platelet Count 173 K/mcL (140-400); Red Blood Count 3.12 M/mcL (4.19-5.50); Red Cell Distribution Width 16.4 % (11.5-14.5); Segmented Neutrophils % 62.9 %; White Blood Count 7.7 K/mcL (4.3-11.1)
[2022-06-22 07:53] LABS: INR 1.1; Prothrombin Time 12.7 Seconds (9.4-12.1)
[2022-06-22 07:53] LABS: VBG Ionized Calcium 1.22 mmol/L (1.15-1.35)
[2022-06-22 08:04] LABS: Alanine Aminotransferase 6 Units/L (7-52); Albumin/Globulin Ratio 1.5 (1.1-2.2); Alkaline Phosphatase 67 Units/L (34-104); Aspartate Amino Transferase 14 Units/L (13-39); BUN/Creatinine Ratio 24 (6-26); Bilirubin,Total 0.4 mg/dL (0.3-1.0); Blood Urea Nitrogen 15 mg/dL (8-23); Calcium 8.7 mg/dL (8.6-10.3); Carbon Dioxide 29 mEq/L (23-29); Chloride 106 mEq/L (98-107); Glucose 94 mg/dL (70-105); Magnesium 1.6 mg/dL (1.6-2.6); Osmolality,Calculated 289 (280-300); Phosphorous 2.9 mg/dL (2.7-4.5); Potassium 3.9 mEq/L (3.5-5.1); Sodium 139 mEq/L (136-145)
[2022-06-22] MEDS: Megestrol Acetate 400 MG/10 ML UDC PO SCH (08:30)
[2022-06-22] MEDS: Magnesium Oxide 400 MG TABLET PO SCH ×2 (08:30→21:36)
[2022-06-22] MEDS: DilTIAZem CD (24hr) 240 MG CAP.ER.24H PO SCH (08:31)
[2022-06-22] MEDS: polyethylene glycoL 3350 17 GM POWD.PACK PO SCH (08:32)
[2022-06-22] MEDS: Tiotropium 10 INH DOSE IH SCH (10:31)
[2022-06-22] MEDS: Budesonide/Formoterol 160/4.5 1 PUFF INH IH SCH ×2 (10:32→20:15)
[2022-06-22] MEDS ORDERED: Albuterol 2.5 MG/3 ML NEBULIZER IH PRN (14:23)
[2022-06-22] MEDS ORDERED: Ondansetron 4 MG/2 ML VIAL IVP PRN (14:23)
[2022-06-22] MEDS ORDERED: *HR* Propofol 200 MG/20 ML VIAL IVP ONE ×2 (14:27→14:48)
[2022-06-22] MEDS ORDERED: *HR* Succinylcholine 200 MG/10 ML VIAL IVP ONE ×2 (14:27→14:53)
[2022-06-22] MEDS ORDERED: Lidocaine -MPF 2% 2 ML VIAL ONE (14:27)
[2022-06-22] MEDS ORDERED: *HR* FentaNYL (PF) 100 MCG/2 ML VIAL ONE (14:27)
[2022-06-22] MEDS ORDERED: Lidocaine HCL 4 ML Topical Solution (Laryng-O-Jet Kit Sterile Pak) TP ONE (14:29)
[2022-06-22] MEDS: Pantoprazole 40 MG VIAL IVP SCH (17:23)
[2022-06-22] MEDS: *HR* Heparin 5,000 UNIT/ML VIAL SQ SCH ×2 (17:23→17:28)
[2022-06-22] MEDS: Melatonin 3 MG TABLET PO PRN (21:36)
[2022-06-22] MEDS: Mirtazapine 15 MG TABLET PO SCH (21:36)
[2022-06-23 02:50] LABS: Basophils % 0.4 %; Eosinophils # 0.2 K/mcL (0.0-0.6); Eosinophils % 2.8 %; Hematocrit 25.5 % (37.5-50.1); Hemoglobin 8.1 g/dL (12.9-16.9); Immature Granulocytes % 0.4 % (0-4); Lymphocytes # 2.1 K/mcL (0.6-4.6); Mean Corpuscular HGB Conc 31.8 g/dL (31.6-35.5); Mean Corpuscular Hemoglobin 27.3 pg (28.0-33.3); Mean Corpuscular Volume 85.9 fL (83.0-100.0); Mean Platelet Volume 11.3 fL (9.4-12.4); Monocytes # 0.5 K/mcL (0.0-1.3); Monocytes % 6.6 %; Neutrophils # 4.9 K/mcL (1.6-8.9); Platelet Count 180 K/mcL (140-400); Red Blood Count 2.97 M/mcL (4.19-5.50); Segmented Neutrophils % 62.8 %; White Blood Count 7.7 K/mcL (4.3-11.1)
[2022-06-23 02:51] LABS: VBG Ionized Calcium 1.23 mmol/L (1.15-1.35)
[2022-06-23 03:06] LABS: INR 1.1; Prothrombin Time 12.6 Seconds (9.4-12.1)
[2022-06-23 03:09] LABS: Alanine Aminotransferase 5 Units/L (7-52); Albumin 2.7 g/dL (3.5-5.7); Albumin/Globulin Ratio 1.3 (1.1-2.2); Alkaline Phosphatase 61 Units/L (34-104); Aspartate Amino Transferase 12 Units/L (13-39); BUN/Creatinine Ratio 17 (6-26); Bilirubin,Total 0.4 mg/dL (0.3-1.0); Blood Urea Nitrogen 9 mg/dL (8-23); Calcium 8.5 mg/dL (8.6-10.3); Carbon Dioxide 25 mEq/L (23-29); Chloride 105 mEq/L (98-107); Globulin 2.1 g/dL (2.4-3.5); Glucose 109 mg/dL (70-105); Magnesium 1.5 mg/dL (1.6-2.6); Osmolality,Calculated 279 (280-300); Phosphorous 2.9 mg/dL (2.7-4.5); Sodium 135 mEq/L (136-145); Total Protein 4.8 g/dL (6.4-8.9)
[2022-06-23] MEDS: Pantoprazole 40 MG VIAL IVP SCH ×2 (06:58→18:40)
[2022-06-23] MEDS: *HR* Heparin 5,000 UNIT/ML VIAL SQ SCH ×2 (07:01→18:33)
[2022-06-23] MEDS: Pantoprazole 40 MG in 0.9 % Sodium Chloride Mini Bag 100 ML IVC SCH (08:37)
[2022-06-23] MEDS: polyethylene glycoL 3350 17 GM POWD.PACK PO SCH (08:52)
[2022-06-23] MEDS: Megestrol Acetate 400 MG/10 ML UDC PO SCH (08:55)
[2022-06-23] MEDS: Magnesium Oxide 400 MG TABLET PO SCH ×2 (08:56→20:45)
[2022-06-23] MEDS: DilTIAZem CD (24hr) 240 MG CAP.ER.24H PO SCH (08:56)
[2022-06-23] MEDS: Acetaminophen 325 MG TABLET PO PRN (08:56)
[2022-06-23] MEDS: Budesonide/Formoterol 160/4.5 1 PUFF INH IH SCH ×2 (10:49→20:33)
[2022-06-23] MEDS: Tiotropium 10 INH DOSE IH SCH (10:53)
[2022-06-23] MEDS ORDERED: Iopamidol - 370 500 ML MLS IVP ONE (13:08)
[2022-06-23] MEDS: *HR* OxyCODONE/APAP 5/325 TABLET PO PRN (15:28)
[2022-06-23] MEDS ORDERED: 0.9 % Sodium Chloride 500 ML IVC SCH (15:45)
[2022-06-23] MEDS ORDERED: 0.9 % Sodium Chloride 1,000 ML IV ONE ×2 (16:45→17:50)
[2022-06-23 17:36] LABS: Hematocrit 24.2 % (37.5-50.1); Hemoglobin 7.7 g/dL (12.9-16.9)
[2022-06-23] MEDS: Ipratropium/Albuterol Neb 3 ML IH PRN (20:30)
[2022-06-23] MEDS: Mirtazapine 15 MG TABLET PO SCH (20:45)
[2022-06-24] MEDS: Ipratropium/Albuterol Neb 3 ML IH PRN ×2 (01:20→10:36)
[2022-06-24] MEDS ORDERED: Furosemide 20 MG/2 ML VIAL IVP ONE (02:29)
[2022-06-24 02:48] LABS: Basophils % 0.2 %; Eosinophils # 0.2 K/mcL (0.0-0.6); Eosinophils % 1.9 %; Hematocrit 26.9 % (37.5-50.1); Hemoglobin 8.5 g/dL (12.9-16.9); Immature Granulocytes % 0.3 % (0-4); Lymphocytes # 2.4 K/mcL (0.6-4.6); Lymphocytes % 27.5 %; Mean Corpuscular HGB Conc 31.6 g/dL (31.6-35.5); Mean Corpuscular Hemoglobin 26.9 pg (28.0-33.3); Mean Corpuscular Volume 85.1 fL (83.0-100.0); Mean Platelet Volume 10.9 fL (9.4-12.4); Monocytes # 0.5 K/mcL (0.0-1.3); Monocytes % 5.8 %; Neutrophils # 5.6 K/mcL (1.6-8.9); Platelet Count 181 K/mcL (140-400); Red Blood Count 3.16 M/mcL (4.19-5.50); Red Cell Distribution Width 16.1 % (11.5-14.5); Segmented Neutrophils % 64.3 %; White Blood Count 8.8 K/mcL (4.3-11.1)
[2022-06-24 02:55] LABS: VBG Ionized Calcium 1.22 mmol/L (1.15-1.35)
[2022-06-24 03:04] LABS: Alanine Aminotransferase 6 Units/L (7-52); Albumin 2.9 g/dL (3.5-5.7); Albumin/Globulin Ratio 1.2 (1.1-2.2); Alkaline Phosphatase 62 Units/L (34-104); Aspartate Amino Transferase 13 Units/L (13-39); BUN/Creatinine Ratio 12 (6-26); Bilirubin,Total 0.4 mg/dL (0.3-1.0); Blood Urea Nitrogen 6 mg/dL (8-23); Calcium 8.7 mg/dL (8.6-10.3); Carbon Dioxide 24 mEq/L (23-29); Chloride 106 mEq/L (98-107); Globulin 2.4 g/dL (2.4-3.5); Glucose 97 mg/dL (70-105); Magnesium 1.4 mg/dL (1.6-2.6); Osmolality,Calculated 282 (280-300); Phosphorous 2.8 mg/dL (2.7-4.5); Potassium 3.4 mEq/L (3.5-5.1); Sodium 137 mEq/L (136-145); Total Protein 5.3 g/dL (6.4-8.9)
[2022-06-24] MEDS: Pantoprazole 40 MG VIAL IVP SCH ×2 (06:32→17:35)
[2022-06-24] MEDS: *HR* Heparin 5,000 UNIT/ML VIAL SQ SCH ×2 (06:32→17:34)
[2022-06-24] MEDS: DilTIAZem CD (24hr) 240 MG CAP.ER.24H PO SCH (08:16)
[2022-06-24] MEDS: *HR* OxyCODONE/APAP 5/325 TABLET PO PRN ×3 (08:17→23:16)
[2022-06-24] MEDS: Magnesium Oxide 400 MG TABLET PO SCH ×2 (08:17→23:15)
[2022-06-24] MEDS: Megestrol Acetate 400 MG/10 ML UDC PO SCH (08:17)
[2022-06-24] MEDS: polyethylene glycoL 3350 17 GM POWD.PACK PO SCH (08:18)
[2022-06-24] MEDS: Tiotropium 10 INH DOSE IH SCH (10:36)
[2022-06-24] MEDS: Budesonide/Formoterol 160/4.5 1 PUFF INH IH SCH ×2 (10:38→21:15)
[2022-06-24] MEDS: Ferrous Sulfate Oral Soln 300 MG/5 ML UDC GTUBE SCH (12:57)
[2022-06-24] MEDS ORDERED: Azithromycin 250 MG TABLET PO ONE ×2 (13:08→15:15)
[2022-06-24] MEDS: Sennosides/Docusate Sodium TABLET PO SCH ×2 (15:07→23:16)
[2022-06-24] MEDS: predniSONE 20 MG TABLET PO SCH (15:08)
[2022-06-24] MEDS: Albuterol 2.5 MG/3 ML NEBULIZER IH PRN (21:10)
[2022-06-24] MEDS: Mirtazapine 15 MG TABLET PO SCH (23:16)
[2022-06-24] MEDS: Melatonin 3 MG TABLET PO PRN (23:16)
[2022-06-25 03:52] LABS: Basophils % 0.2 %; Hematocrit 23.8 % (37.5-50.1); Hemoglobin 7.6 g/dL (12.9-16.9); Immature Granulocytes % 0.6 % (0-4); Lymphocytes # 0.9 K/mcL (0.6-4.6); Lymphocytes % 16.8 %; Mean Corpuscular HGB Conc 31.9 g/dL (31.6-35.5); Mean Corpuscular Hemoglobin 27.1 pg (28.0-33.3); Mean Platelet Volume 11.2 fL (9.4-12.4); Monocytes # 0.3 K/mcL (0.0-1.3); Monocytes % 4.9 %; Platelet Count 216 K/mcL (140-400); Red Cell Distribution Width 16.2 % (11.5-14.5); Segmented Neutrophils % 77.5 %; White Blood Count 5.1 K/mcL (4.3-11.1)
[2022-06-25 04:13] LABS: BUN/Creatinine Ratio 16 (6-26); Blood Urea Nitrogen 9 mg/dL (8-23); Calcium 8.3 mg/dL (8.6-10.3); Carbon Dioxide 24 mEq/L (23-29); Chloride 104 mEq/L (98-107); Glucose 120 mg/dL (70-105); Magnesium 1.8 mg/dL (1.6-2.6); Osmolality,Calculated 278 (280-300); Phosphorous 5.1 mg/dL (2.7-4.5); Potassium 4.1 mEq/L (3.5-5.1); Sodium 134 mEq/L (136-145)
[2022-06-25] MEDS: Pantoprazole 40 MG VIAL IVP SCH ×2 (06:30→17:59)
[2022-06-25] MEDS: *HR* Heparin 5,000 UNIT/ML VIAL SQ SCH ×2 (06:30→17:59)
[2022-06-25] MEDS: polyethylene glycoL 3350 17 GM POWD.PACK PO SCH (09:10)
[2022-06-25] MEDS: Magnesium Oxide 400 MG TABLET PO SCH ×2 (09:10→22:04)
[2022-06-25] MEDS: predniSONE 20 MG TABLET PO SCH (09:10)
[2022-06-25] MEDS: *HR* Rivaroxaban 10 MG TABLET PO SCH (09:10)
[2022-06-25] MEDS: Sennosides/Docusate Sodium TABLET PO SCH ×2 (09:10→22:04)
[2022-06-25] MEDS: Megestrol Acetate 400 MG/10 ML UDC PO SCH (09:10)
[2022-06-25] MEDS: Ferrous Sulfate Oral Soln 300 MG/5 ML UDC GTUBE SCH (09:10)
[2022-06-25] MEDS: *HR* OxyCODONE/APAP 5/325 TABLET PO PRN ×2 (09:10→22:07)
[2022-06-25] MEDS: Ondansetron ODT 4 MG TAB.RAPDIS SL PRN (09:11)
[2022-06-25] MEDS: Albuterol 2.5 MG/3 ML NEBULIZER IH PRN ×2 (09:58→20:23)
[2022-06-25] MEDS: Tiotropium 10 INH DOSE IH SCH (10:00)
[2022-06-25] MEDS: Budesonide/Formoterol 160/4.5 1 PUFF INH IH SCH ×2 (10:01→20:22)
[2022-06-25] MEDS ORDERED: Milk and Molasses Enema 200 ML RC ONE (12:52)
[2022-06-25] MEDS: Azithromycin 250 MG TABLET PO SCH (13:56)
[2022-06-25] MEDS: Ipratropium/Albuterol Neb 3 ML IH PRN (15:03)
[2022-06-25] MEDS: Mirtazapine 15 MG TABLET PO SCH (22:05)
[2022-06-25] MEDS: Melatonin 3 MG TABLET PO PRN (22:05)
[2022-06-26 03:37] LABS: Basophils % 0.3 %; Eosinophils % 0.3 %; Hemoglobin 7.5 g/dL (12.9-16.9); Immature Granulocytes % 0.5 % (0-4); Lymphocytes # 1.4 K/mcL (0.6-4.6); Lymphocytes % 21.7 %; Mean Corpuscular HGB Conc 32.6 g/dL (31.6-35.5); Mean Corpuscular Hemoglobin 27.5 pg (28.0-33.3); Mean Corpuscular Volume 84.2 fL (83.0-100.0); Mean Platelet Volume 10.9 fL (9.4-12.4); Monocytes # 0.6 K/mcL (0.0-1.3); Monocytes % 9.2 %; Neutrophils # 4.4 K/mcL (1.6-8.9); Platelet Count 252 K/mcL (140-400); Red Blood Count 2.73 M/mcL (4.19-5.50); Red Cell Distribution Width 16.4 % (11.5-14.5); White Blood Count 6.5 K/mcL (4.3-11.1)
[2022-06-26 03:56] LABS: BUN/Creatinine Ratio 21 (6-26); Blood Urea Nitrogen 13 mg/dL (8-23); Carbon Dioxide 25 mEq/L (23-29); Chloride 105 mEq/L (98-107); Glucose 134 mg/dL (70-105); Osmolality,Calculated 284 (280-300); Potassium 3.7 mEq/L (3.5-5.1); Sodium 136 mEq/L (136-145)
[2022-06-26 03:59] LABS: Magnesium 1.8 mg/dL (1.6-2.6); Phosphorous 2.9 mg/dL (2.7-4.5)
[2022-06-26] MEDS: *HR* Heparin 5,000 UNIT/ML VIAL SQ SCH (06:13)
[2022-06-26] MEDS: Pantoprazole 40 MG VIAL IVP SCH (06:13)
[2022-06-26] MEDS: *HR* OxyCODONE/APAP 5/325 TABLET PO PRN ×3 (06:15→20:36)
[2022-06-26] MEDS: Albuterol 2.5 MG/3 ML NEBULIZER IH PRN (06:18)
[2022-06-26] MEDS: Magnesium Oxide 400 MG TABLET PO SCH ×2 (08:53→20:36)
[2022-06-26] MEDS: *HR* Rivaroxaban 10 MG TABLET PO SCH (08:53)
[2022-06-26] MEDS: polyethylene glycoL 3350 17 GM POWD.PACK PO SCH (08:53)
[2022-06-26] MEDS: Sennosides/Docusate Sodium TABLET PO SCH ×2 (08:53→20:36)
[2022-06-26] MEDS: predniSONE 20 MG TABLET PO SCH (08:54)
[2022-06-26] MEDS: Ferrous Sulfate Oral Soln 300 MG/5 ML UDC GTUBE SCH (08:55)
[2022-06-26] MEDS: Gabapentin 100 MG CAPSULE PO SCH (09:35)
[2022-06-26] MEDS: Ipratropium/Albuterol Neb 3 ML IH SCH ×3 (10:46→21:10)
[2022-06-26] MEDS: Budesonide/Formoterol 160/4.5 1 PUFF INH IH SCH ×2 (10:49→21:10)
[2022-06-26] MEDS: Tiotropium 10 INH DOSE IH SCH (10:50)
[2022-06-26] MEDS ORDERED: Milk and Molasses Enema 200 ML RC ONE (11:45)
[2022-06-26] MEDS: Azithromycin 250 MG TABLET PO SCH (13:14)
[2022-06-26] MEDS: Melatonin 3 MG TABLET PO PRN (20:36)
[2022-06-26] MEDS: Mirtazapine 15 MG TABLET PO SCH (20:36)
[2022-06-27 03:21] LABS: BUN/Creatinine Ratio 20 (6-26); Blood Urea Nitrogen 12 mg/dL (8-23); Calcium 8.1 mg/dL (8.6-10.3); Carbon Dioxide 20 mEq/L (23-29); Chloride 108 mEq/L (98-107); Glucose 107 mg/dL (70-105); Magnesium 1.7 mg/dL (1.6-2.6); Osmolality,Calculated 280 (280-300); Potassium 4.2 mEq/L (3.5-5.1); Sodium 135 mEq/L (136-145)
[2022-06-27] MEDS: Ipratropium/Albuterol Neb 3 ML IH SCH ×4 (04:05→20:02)
[2022-06-27] MEDS: *HR* OxyCODONE/APAP 5/325 TABLET PO PRN ×3 (06:39→19:37)
[2022-06-27] MEDS ORDERED: Milk and Molasses Enema 200 ML RC ONE (09:46)
[2022-06-27] MEDS: Gabapentin 100 MG CAPSULE PO SCH (10:04)
[2022-06-27] MEDS: Ferrous Sulfate Oral Soln 300 MG/5 ML UDC PO SCH (10:04)
[2022-06-27] MEDS: Magnesium Oxide 400 MG TABLET PO SCH ×2 (10:04→19:38)
[2022-06-27] MEDS: predniSONE 20 MG TABLET PO SCH (10:05)
[2022-06-27] MEDS: Sennosides/Docusate Sodium TABLET PO SCH ×2 (10:05→19:37)
[2022-06-27] MEDS: polyethylene glycoL 3350 17 GM POWD.PACK PO SCH ×2 (10:05→19:38)
[2022-06-27] MEDS ORDERED: *HR* OxyCODONE/APAP 5/325 TABLET PO PRN (11:41)
[2022-06-27] MEDS: Azithromycin 250 MG TABLET PO SCH (12:48)
[2022-06-27] MEDS: Acetaminophen 325 MG TABLET PO PRN (18:17)
[2022-06-27] MEDS: *HR* Rivaroxaban 10 MG TABLET PO SCH (18:19)
[2022-06-27] MEDS: Mirtazapine 15 MG TABLET PO SCH (19:37)
[2022-06-27] MEDS: Melatonin 3 MG TABLET PO PRN (19:38)
[2022-06-28] MEDS: *HR* OxyCODONE/APAP 5/325 TABLET PO PRN ×2 (01:44→08:58)
[2022-06-28 03:25] LABS: BUN/Creatinine Ratio 27 (6-26); Blood Urea Nitrogen 14 mg/dL (8-23); Carbon Dioxide 22 mEq/L (23-29); Chloride 107 mEq/L (98-107); Glucose 97 mg/dL (70-105); Magnesium 1.6 mg/dL (1.6-2.6); Osmolality,Calculated 278 (280-300); Potassium 3.9 mEq/L (3.5-5.1); Sodium 134 mEq/L (136-145)
[2022-06-28] MEDS: Ipratropium/Albuterol Neb 3 ML IH SCH ×6 (04:08→23:28)
[2022-06-28 08:50] LABS: Hematocrit 24.4 % (37.5-50.1); Hemoglobin 7.8 g/dL (12.9-16.9); Mean Corpuscular Hemoglobin 27.5 pg (28.0-33.3); Mean Corpuscular Volume 85.9 fL (83.0-100.0); Mean Platelet Volume 10.2 fL (9.4-12.4); Platelet Count 302 K/mcL (140-400); Red Blood Count 2.84 M/mcL (4.19-5.50); Red Cell Distribution Width 16.3 % (11.5-14.5); White Blood Count 7.4 K/mcL (4.3-11.1)
[2022-06-28] MEDS: Ferrous Sulfate Oral Soln 300 MG/5 ML UDC PO SCH (08:58)
[2022-06-28] MEDS: Sennosides/Docusate Sodium TABLET PO SCH ×2 (08:58→20:21)
[2022-06-28] MEDS: predniSONE 20 MG TABLET PO SCH (08:58)
[2022-06-28] MEDS: polyethylene glycoL 3350 17 GM POWD.PACK PO SCH ×2 (08:58→20:20)
[2022-06-28] MEDS: Magnesium Oxide 400 MG TABLET PO SCH ×2 (08:59→20:22)
[2022-06-28] MEDS: Gabapentin 100 MG CAPSULE PO SCH (08:59)
[2022-06-28] MEDS ORDERED: Milk and Molasses Enema 200 ML RC ONE (09:00)
[2022-06-28] MEDS ORDERED: Methylnaltrexone 12 MG/0.6 ML SYRINGE SQ ONE (09:23)
[2022-06-28] MEDS: Ondansetron ODT 4 MG TAB.RAPDIS SL PRN (09:36)
[2022-06-28] MEDS: Famotidine 20 MG/2 ML VIAL IVP SCH (10:15)
[2022-06-28] MEDS: Azithromycin 250 MG TABLET PO SCH (13:51)
[2022-06-28] MEDS ORDERED: Furosemide 40 MG/4 ML VIAL IVP ONE (16:42)
[2022-06-28] MEDS ORDERED: Ketorolac 30 MG/ML VIAL IVP ONE (16:46)
[2022-06-28] MEDS: *HR* Rivaroxaban 10 MG TABLET PO SCH (17:49)
[2022-06-28] MEDS: Mirtazapine 15 MG TABLET PO SCH (20:22)
[2022-06-28] MEDS: Melatonin 3 MG TABLET PO PRN (20:23)
[2022-06-29] MEDS: Ipratropium/Albuterol Neb 3 ML IH SCH ×6 (04:38→23:40)
[2022-06-29 05:37] LABS: Hematocrit 24.4 % (37.5-50.1); Hemoglobin 7.7 g/dL (12.9-16.9); Mean Corpuscular HGB Conc 31.6 g/dL (31.6-35.5); Mean Corpuscular Hemoglobin 27.1 pg (28.0-33.3); Mean Corpuscular Volume 85.9 fL (83.0-100.0); Mean Platelet Volume 10.3 fL (9.4-12.4); Platelet Count 344 K/mcL (140-400); Red Blood Count 2.84 M/mcL (4.19-5.50); Red Cell Distribution Width 16.6 % (11.5-14.5); White Blood Count 7.4 K/mcL (4.3-11.1)
[2022-06-29 05:54] LABS: BUN/Creatinine Ratio 35 (6-26); Blood Urea Nitrogen 24 mg/dL (8-23); Calcium 8.2 mg/dL (8.6-10.3); Carbon Dioxide 23 mEq/L (23-29); Chloride 106 mEq/L (98-107); Glucose 130 mg/dL (70-105); Magnesium 1.9 mg/dL (1.6-2.6); Osmolality,Calculated 286 (280-300); Potassium 4.1 mEq/L (3.5-5.1); Sodium 135 mEq/L (136-145)
[2022-06-29] MEDS: Ferrous Sulfate Oral Soln 300 MG/5 ML UDC PO SCH (08:06)
[2022-06-29] MEDS: Gabapentin 100 MG CAPSULE PO SCH (08:06)
[2022-06-29] MEDS: Magnesium Oxide 400 MG TABLET PO SCH ×2 (08:06→21:00)
[2022-06-29] MEDS: Sennosides/Docusate Sodium TABLET PO SCH ×2 (08:06→21:00)
[2022-06-29] MEDS: polyethylene glycoL 3350 17 GM POWD.PACK PO SCH ×2 (08:07→21:00)
[2022-06-29] MEDS: Famotidine 20 MG/2 ML VIAL IVP SCH (10:52)
[2022-06-29] MEDS: Acetaminophen 325 MG TABLET PO PRN (17:43)
[2022-06-29] MEDS: *HR* Rivaroxaban 10 MG TABLET PO SCH (17:44)
[2022-06-29] MEDS: Mirtazapine 15 MG TABLET PO SCH (21:00)
[2022-06-30] MEDS: Ipratropium/Albuterol Neb 3 ML IH SCH ×2 (04:19→07:25)
[2022-06-30 04:20] VITALS: O2SAT 93
[2022-06-30] MEDS: Magnesium Oxide 400 MG TABLET PO SCH (10:12)
[2022-06-30] MEDS: Gabapentin 100 MG CAPSULE PO SCH (10:12)
[2022-06-30] MEDS: Ferrous Sulfate Oral Soln 300 MG/5 ML UDC PO SCH (10:13)
[2022-06-30] MEDS: polyethylene glycoL 3350 17 GM POWD.PACK PO SCH (10:15)
[2022-06-30] MEDS: Sennosides/Docusate Sodium TABLET PO SCH (10:15)
[2022-06-30] MEDS: Famotidine 20 MG/2 ML VIAL IVP SCH (10:20)
[2022-06-30] MEDS ORDERED: Gabapentin 100 MG CAPSULE PO ONE (10:47)
[2022-06-30] MEDS ORDERED: *HR* FentaNYL PATCH 25 MCG PATCH TD SCH (11:00)
[2022-06-30 11:27] VITALS: BP 99/43; PULSE 94; TEMP 98.7
[2022-06-30] MEDS: Albuterol 2.5 MG/3 ML NEBULIZER IH PRN (13:37)
[2022-06-30] MEDS ORDERED: Gabapentin 300 MG CAPSULE PO SCH (15:00)
== END 2022-06-30 17:00 | DRG 640 ==
LOC: EMEROOARM 13:48 → 2ANU 13:48 → SUATTDRO 06-15 00:50 → 2ANU 06-15 02:09 → SUATTDRO 06-16 11:36 → ICNU 06-19 18:13 → 2ANU 06-22 18:13
PROVIDERS: ADMIT Internal Medicine; ATTEND Student in an Organized Health Care Education/Training Program

== ENCOUNTER 2022-07-09 15:38 | Inpatient (IN) ==
[2022-07-09] MEDS ORDERED: Iopamidol - 370 500 ML MLS IVP ONE (16:00)
[2022-07-09 16:46] LABS: Basophils % 0.5 %; Eosinophils # 0.3 K/mcL (0.0-0.6); Eosinophils % 4.3 %; Hematocrit 25.5 % (37.5-50.1); Immature Granulocytes % 0.3 % (0-4); Lymphocytes # 1.6 K/mcL (0.6-4.6); Lymphocytes % 26.7 %; Mean Corpuscular HGB Conc 31.4 g/dL (31.6-35.5); Mean Corpuscular Hemoglobin 26.7 pg (28.0-33.3); Mean Platelet Volume 9.6 fL (9.4-12.4); Monocytes # 0.3 K/mcL (0.0-1.3); Monocytes % 5.6 %; Neutrophils # 3.7 K/mcL (1.6-8.9); Platelet Count 384 K/mcL (140-400); Red Cell Distribution Width 15.7 % (11.5-14.5); Segmented Neutrophils % 62.6 %; White Blood Count 5.9 K/mcL (4.3-11.1)
[2022-07-09 16:55] LABS: INR 2.2; Prothrombin Time 24.8 Seconds (9.4-12.1)
[2022-07-09 16:57] LABS: Activated Partial Thrombo Time 44.9 Seconds (26.0-36.0)
[2022-07-09 17:07] LABS: Alanine Aminotransferase 10 Units/L (7-52); Albumin 3.3 g/dL (3.5-5.7); Albumin/Globulin Ratio 1.3 (1.1-2.2); Alkaline Phosphatase 54 Units/L (34-104); Aspartate Amino Transferase 10 Units/L (13-39); BUN/Creatinine Ratio 21 (6-26); Bilirubin,Indirect 0.3 mg/dL (0.0-1.0); Bilirubin,Total 0.3 mg/dL (0.3-1.0); Blood Urea Nitrogen 13 mg/dL (8-23); Calcium 9.3 mg/dL (8.6-10.3); Carbon Dioxide 28 mEq/L (23-29); Chloride 103 mEq/L (98-107); Globulin 2.5 g/dL (2.4-3.5); Glucose 92 mg/dL (70-105); Osmolality,Calculated 288 (280-300); Potassium 3.5 mEq/L (3.5-5.1); Sodium 139 mEq/L (136-145); Total Protein 5.8 g/dL (6.4-8.9)
[2022-07-09 17:08] LABS: Troponin I < 0.03 ng/mL (< 0.04)
[2022-07-09] MEDS ORDERED: Piperacillin/Tazobactam 3.375 GM in 0.9 % Sodium Chloride Mini Bag 100 ML IVPB ONE (19:00)
[2022-07-09] MEDS ORDERED: Vancomycin (wt based) 1,000 MG VIAL IVPB SCH (19:00)
[2022-07-09] MEDS ORDERED: Ondansetron ODT 4 MG TAB.RAPDIS SL PRN (20:16)
[2022-07-09] MEDS ORDERED: Naloxone 0.4 MG/ML INJ IVP PRN (20:16)
[2022-07-09] MEDS: Melatonin 3 MG TABLET PO PRN (22:11)
[2022-07-09] MEDS: *HR* OxyCODONE/APAP 10/325 TABLET PO PRN (22:12)
[2022-07-09] MEDS: Gabapentin 300 MG CAPSULE PO SCH (22:12)
[2022-07-09] MEDS ORDERED: *HR* Acetylcysteine 20% 600 MG/3 ML ORAL SYRINGE PO SCH (22:45)
[2022-07-10] MEDS ORDERED: Nicotine 7 MG PATCH.TD24 TD PRN (01:17)
[2022-07-10] MEDS ORDERED: D5% in Water 1,000 ML IVC PRN (01:18)
[2022-07-10] MEDS ORDERED: *HR* Dextrose 50 % in Water (Syg) 50 ML SYRINGE IVP PRN (01:18)
[2022-07-10] MEDS ORDERED: Dextrose Gel 15 GM/37.5 ML TUBE PO PRN ×2 (01:18)
[2022-07-10] MEDS: Ipratropium/Albuterol Neb 3 ML IH SCH ×2 (03:45→07:27)
[2022-07-10] MEDS: Acetylcysteine 10% 2 ML INHSOL IH SCH ×6 (03:45→22:59)
[2022-07-10 05:33] LABS: BUN/Creatinine Ratio 19 (6-26); Blood Urea Nitrogen 10 mg/dL (8-23); Calcium 9.2 mg/dL (8.6-10.3); Carbon Dioxide 25 mEq/L (23-29); Chloride 105 mEq/L (98-107); Glucose 90 mg/dL (70-105); Osmolality,Calculated 285 (280-300); Potassium 3.5 mEq/L (3.5-5.1); Sodium 138 mEq/L (136-145)
[2022-07-10] MEDS ORDERED: Ondansetron ODT 4 MG TAB.RAPDIS SL PRN (07:59)
[2022-07-10] MEDS ORDERED: Levalbuterol 1 PUFF INHALER IH PRN (07:59)
[2022-07-10] MEDS ORDERED: NON-FORMULARY MEDICATION 1 EACH EACH (Roflumilast [Daliresp] 500 MCG Tablet) PO SCH (09:00)
[2022-07-10] MEDS: GuaiFENesin/Dextromethorphan TABLET PO SCH ×2 (09:03→21:43)
[2022-07-10] MEDS: Gabapentin 300 MG CAPSULE PO SCH ×3 (09:03→21:43)
[2022-07-10] MEDS: Sennosides/Docusate Sodium TABLET PO SCH ×2 (09:03→21:43)
[2022-07-10] MEDS: Lactobacillus 1 EACH CAP.SPRINK PO SCH ×2 (09:03→21:42)
[2022-07-10] MEDS: Piperacillin/Tazobactam 3.375 GM in 0.9 % Sodium Chloride Mini Bag 100 ML IVPB SCH ×2 (09:04→17:48)
[2022-07-10] MEDS: Chlorhexidine Rinse 15 ML MOUTHWASH MM SCH ×2 (09:04→21:42)
[2022-07-10] MEDS: *HR* OxyCODONE/APAP 10/325 TABLET PO PRN ×3 (09:31→22:54)
[2022-07-10] MEDS: Tiotropium 10 INH DOSE IH SCH (09:56)
[2022-07-10] MEDS: Budesonide/Formoterol 160/4.5 1 PUFF INH IH SCH ×2 (09:57→20:04)
[2022-07-10] MEDS ORDERED: Budesonide/Formoterol 80/4.5 1 PUFF INH IH SCH (10:00)
[2022-07-10] MEDS ORDERED: *HR* Labetalol 20 MG/4 ML SYRINGE IVP PRN (11:07)
[2022-07-10] MEDS ORDERED: Ondansetron 4 MG/2 ML VIAL IVP PRN (11:07)
[2022-07-10] MEDS ORDERED: *HR* OxyCODONE Immed Rel 5 MG TABLET PO PRN (11:07)
[2022-07-10] MEDS ORDERED: Acetaminophen IV 1,000 MG/100 ML BAG IVPB PRN (11:07)
[2022-07-10] MEDS ORDERED: Albuterol 2.5 MG/3 ML NEBULIZER IH PRN (11:08)
[2022-07-10] MEDS ORDERED: Ipratropium Neb 0.5 MG NEBULIZER IH PRN (11:08)
[2022-07-10] MEDS ORDERED: *HR* Propofol 200 MG/20 ML VIAL IVP ONE (11:11)
[2022-07-10] MEDS ORDERED: *HR* FentaNYL (PF) 100 MCG/2 ML VIAL ONE (11:11)
[2022-07-10] MEDS ORDERED: Lidocaine -MPF 2% 2 ML VIAL ONE (11:13)
[2022-07-10] MEDS ORDERED: Lidocaine -MPF 4% 5 ML AMPUL ONE (11:13)
[2022-07-10] MEDS ORDERED: *HR* Succinylcholine 200 MG/10 ML VIAL IVP ONE (11:13)
[2022-07-10] MEDS ORDERED: Ondansetron 4 MG/2 ML VIAL ONE (11:13)
[2022-07-10] MEDS: Levalbuterol Neb 1.25 MG/3 ML IH SCH ×4 (11:15→22:58)
[2022-07-10 20:44] LABS: Enterococcus faecalis by PCR Not Detected (Not Detect); Enterococcus faecium by PCR Not Detected (Not Detect)
[2022-07-10 20:45] LABS: A.calcoaceticus-baumannii cplx Not Detected (Not Detect); Bacteroides fragilis by PCR Not Detected (Not Detect); Candida albicans by PCR Not Detected (Not Detect); Candida auris by PCR Not Detected (Not Detect); Candida glabrata by PCR Not Detected (Not Detect); Candida krusei by PCR Not Detected (Not Detect); Candida parapsilosis by PCR Not Detected (Not Detect); Candida tropicalis by PCR Not Detected (Not Detect); Crypto. neoformans/gattii PCR Not Detected (Not Detect); Enterobacter cloacae Cmplx PCR Not Detected (Not Detect); Enterobacterales by PCR Not Detected (Not Detect); Escherichia coli by PCR Not Detected (Not Detect); Klebs. pneumoniae group by PCR Not Detected (Not Detect); Klebsiella aerogenes by PCR Not Detected (Not Detect); Klebsiella oxytoca by PCR Not Detected (Not Detect); Proteus by PCR Not Detected (Not Detect); Pseudomonas aeruginosa by PCR Not Detected (Not Detect); Salmonella species by PCR Not Detected (Not Detect); Serratia marcescens by PCR Not Detected (Not Detect); Staph epidermidis by PCR Not Detected (Not Detect); Staph lugdunensis by PCR Not Detected (Not Detect); Staphylococcus aureus by PCR Not Detected (Not Detect); Staphylococcus by PCR DETECTED (Not Detect); Stenotrophomonas maltophilia Not Detected (Not Detect); Streptococcus agalactiae(B)PCR Not Detected (Not Detect); Streptococcus by PCR Not Detected (Not Detect); Streptococcus pneumoniae PCR Not Detected (Not Detect); Streptococcus pyogenes (A) PCR Not Detected (Not Detect)
[2022-07-10] MEDS: Mirtazapine 15 MG TABLET PO SCH (21:43)
[2022-07-11] MEDS: Piperacillin/Tazobactam 3.375 GM in 0.9 % Sodium Chloride Mini Bag 100 ML IVPB SCH ×3 (02:07→16:36)
[2022-07-11 03:46] LABS: Basophils % 0.7 %; Eosinophils # 0.3 K/mcL (0.0-0.6); Eosinophils % 4.5 %; Hematocrit 25.4 % (37.5-50.1); Hemoglobin 7.7 g/dL (12.9-16.9); Immature Granulocytes % 0.2 % (0-4); Lymphocytes # 1.4 K/mcL (0.6-4.6); Mean Corpuscular HGB Conc 30.3 g/dL (31.6-35.5); Mean Corpuscular Hemoglobin 26.6 pg (28.0-33.3); Mean Corpuscular Volume 87.6 fL (83.0-100.0); Mean Platelet Volume 9.6 fL (9.4-12.4); Monocytes # 0.4 K/mcL (0.0-1.3); Monocytes % 6.5 %; Neutrophils # 3.4 K/mcL (1.6-8.9); Platelet Count 314 K/mcL (140-400); Red Cell Distribution Width 15.8 % (11.5-14.5); Segmented Neutrophils % 62.1 %; White Blood Count 5.5 K/mcL (4.3-11.1)
[2022-07-11 04:05] LABS: BUN/Creatinine Ratio 21 (6-26); Blood Urea Nitrogen 12 mg/dL (8-23); Carbon Dioxide 27 mEq/L (23-29); Chloride 103 mEq/L (98-107); Glucose 121 mg/dL (70-105); Magnesium 1.3 mg/dL (1.6-2.6); Osmolality,Calculated 287 (280-300); Phosphorous 4.4 mg/dL (2.7-4.5); Potassium 3.5 mEq/L (3.5-5.1); Sodium 138 mEq/L (136-145)
[2022-07-11] MEDS: Acetylcysteine 10% 2 ML INHSOL IH SCH ×6 (04:44→23:06)
[2022-07-11] MEDS: Levalbuterol Neb 1.25 MG/3 ML IH SCH ×6 (04:44→23:07)
[2022-07-11] MEDS: Budesonide/Formoterol 160/4.5 1 PUFF INH IH SCH ×2 (07:34→20:33)
[2022-07-11] MEDS: Tiotropium 10 INH DOSE IH SCH (07:34)
[2022-07-11] MEDS: Sennosides/Docusate Sodium TABLET PO SCH ×2 (09:52→21:10)
[2022-07-11] MEDS: Gabapentin 300 MG CAPSULE PO SCH ×3 (09:53→21:11)
[2022-07-11] MEDS: Chlorhexidine Rinse 15 ML MOUTHWASH MM SCH ×2 (09:53→21:06)
[2022-07-11] MEDS: GuaiFENesin/Dextromethorphan TABLET PO SCH ×2 (09:53→21:10)
[2022-07-11] MEDS: Lactobacillus 1 EACH CAP.SPRINK PO SCH ×2 (09:53→21:11)
[2022-07-11] MEDS ORDERED: polyethylene glycoL 3350 17 GM POWD.PACK PO ONE (12:04)
[2022-07-11] MEDS: *HR* OxyCODONE/APAP 10/325 TABLET PO PRN ×2 (13:06→21:10)
[2022-07-11] MEDS: Melatonin 3 MG TABLET PO PRN (21:10)
[2022-07-11] MEDS: Mirtazapine 15 MG TABLET PO SCH (21:11)
[2022-07-12] MEDS: Piperacillin/Tazobactam 3.375 GM in 0.9 % Sodium Chloride Mini Bag 100 ML IVPB SCH ×4 (00:15→23:46)
[2022-07-12 03:04] LABS: Basophils % 0.4 %; Eosinophils # 0.3 K/mcL (0.0-0.6); Eosinophils % 5.7 %; Hematocrit 23.2 % (37.5-50.1); Hemoglobin 7.2 g/dL (12.9-16.9); Immature Granulocytes % 0.4 % (0-4); Immature Platelets 4.6 % (1.1-6.1); Lymphocytes # 1.3 K/mcL (0.6-4.6); Lymphocytes % 24.1 %; Mean Corpuscular Hemoglobin 26.9 pg (28.0-33.3); Mean Corpuscular Volume 86.6 fL (83.0-100.0); Mean Platelet Volume 10.5 fL (9.4-12.4); Monocytes # 0.4 K/mcL (0.0-1.3); Monocytes % 6.8 %; Neutrophils # 3.3 K/mcL (1.6-8.9); Platelet Count 291 K/mcL (140-400); Red Blood Count 2.68 M/mcL (4.19-5.50); Red Cell Distribution Width 15.9 % (11.5-14.5); Segmented Neutrophils % 62.6 %; White Blood Count 5.3 K/mcL (4.3-11.1)
[2022-07-12] MEDS: Acetylcysteine 10% 2 ML INHSOL IH SCH (04:14)
[2022-07-12] MEDS: Levalbuterol Neb 1.25 MG/3 ML IH SCH ×5 (04:14→19:44)
[2022-07-12 05:26] LABS: BUN/Creatinine Ratio 14 (6-26); Blood Urea Nitrogen 8 mg/dL (8-23); Calcium 8.8 mg/dL (8.6-10.3); Carbon Dioxide 26 mEq/L (23-29); Chloride 108 mEq/L (98-107); Glucose 121 mg/dL (70-105); Osmolality,Calculated 290 (280-300); Potassium 3.7 mEq/L (3.5-5.1); Sodium 140 mEq/L (136-145)
[2022-07-12] MEDS: Budesonide/Formoterol 160/4.5 1 PUFF INH IH SCH ×2 (08:05→20:00)
[2022-07-12] MEDS: Tiotropium 10 INH DOSE IH SCH (08:05)
[2022-07-12] MEDS: Lactobacillus 1 EACH CAP.SPRINK PO SCH ×2 (09:39→20:50)
[2022-07-12] MEDS: GuaiFENesin/Dextromethorphan TABLET PO SCH ×2 (09:39→20:52)
[2022-07-12] MEDS: Gabapentin 300 MG CAPSULE PO SCH ×3 (09:39→20:52)
[2022-07-12] MEDS: Sennosides/Docusate Sodium TABLET PO SCH ×2 (09:39→20:51)
[2022-07-12] MEDS: Chlorhexidine Rinse 15 ML MOUTHWASH MM SCH ×2 (09:41→20:52)
[2022-07-12] MEDS: *HR* OxyCODONE/APAP 10/325 TABLET PO PRN ×3 (10:59→20:49)
[2022-07-12] MEDS ORDERED: Levalbuterol Neb 1.25 MG/3 ML IH PRN (12:51)
[2022-07-12] MEDS: Mirtazapine 15 MG TABLET PO SCH (20:51)
[2022-07-12] MEDS: Melatonin 3 MG TABLET PO PRN (20:51)
[2022-07-13] MEDS: Levalbuterol Neb 1.25 MG/3 ML IH SCH ×7 (00:15→23:35)
[2022-07-13 05:21] LABS: Basophils % 0.4 %; Eosinophils # 0.3 K/mcL (0.0-0.6); Eosinophils % 4.9 %; Hematocrit 23.1 % (37.5-50.1); Immature Granulocytes % 0.2 % (0-4); Lymphocytes # 1.5 K/mcL (0.6-4.6); Lymphocytes % 29.7 %; Mean Corpuscular HGB Conc 30.3 g/dL (31.6-35.5); Mean Corpuscular Hemoglobin 26.5 pg (28.0-33.3); Mean Corpuscular Volume 87.5 fL (83.0-100.0); Mean Platelet Volume 9.9 fL (9.4-12.4); Monocytes # 0.4 K/mcL (0.0-1.3); Monocytes % 8.2 %; Neutrophils # 2.9 K/mcL (1.6-8.9); Platelet Count 280 K/mcL (140-400); Red Blood Count 2.64 M/mcL (4.19-5.50); Segmented Neutrophils % 56.6 %; White Blood Count 5.1 K/mcL (4.3-11.1)
[2022-07-13 06:33] LABS: BUN/Creatinine Ratio 19 (6-26); Blood Urea Nitrogen 11 mg/dL (8-23); Calcium 9.1 mg/dL (8.6-10.3); Carbon Dioxide 27 mEq/L (23-29); Chloride 106 mEq/L (98-107); Glucose 106 mg/dL (70-105); Osmolality,Calculated 288 (280-300); Potassium 3.9 mEq/L (3.5-5.1); Sodium 139 mEq/L (136-145)
[2022-07-13] MEDS ORDERED: *HR* Metoprolol 5 MG/5 ML VIAL IVP ONE ×6 (06:54→17:31)
[2022-07-13] MEDS ORDERED: Nitroglycerin 0.4 MG TAB.SUBL SL ONE ×2 (06:54→07:02)
[2022-07-13] MEDS: Tiotropium 10 INH DOSE IH SCH (07:46)
[2022-07-13] MEDS: Budesonide/Formoterol 160/4.5 1 PUFF INH IH SCH ×2 (07:46→20:32)
[2022-07-13] MEDS: Lactobacillus 1 EACH CAP.SPRINK PO SCH ×2 (08:54→21:57)
[2022-07-13] MEDS: Sennosides/Docusate Sodium TABLET PO SCH ×2 (08:55→21:57)
[2022-07-13] MEDS: Gabapentin 300 MG CAPSULE PO SCH ×3 (08:55→21:57)
[2022-07-13] MEDS: Piperacillin/Tazobactam 3.375 GM in 0.9 % Sodium Chloride Mini Bag 100 ML IVPB SCH ×3 (08:56→23:38)
[2022-07-13] MEDS: GuaiFENesin/Dextromethorphan TABLET PO SCH ×2 (08:56→21:58)
[2022-07-13] MEDS: Chlorhexidine Rinse 15 ML MOUTHWASH MM SCH ×2 (08:57→21:58)
[2022-07-13 09:04] LABS: Hematocrit 24.8 % (37.5-50.1); Hemoglobin 7.6 g/dL (12.9-16.9)
[2022-07-13] MEDS: *HR* HYDROmorphone (PF) 1 MG/ML SYRINGE IVP PRN ×2 (09:59→15:38)
[2022-07-13] MEDS ORDERED: Iopamidol - 370 500 ML MLS IVP ONE (10:19)
[2022-07-13] MEDS ORDERED: Nitroglycerin 1 INCH/GM PACKET ONE ×2 (17:13→17:14)
[2022-07-13 17:30] LABS: ABG Base Excess 4 mEq/L (-2 to 3); ABG HCO3 27 mEq/L (21-27); ABG Oxygen Saturation 94 % (95-98); ABG PCO2 34 mmHg (35-45); ABG PH 7.51 pH Units (7.32-7.45); ABG PO2 64 mmHg (85-104); ABG TCO2 28 mEq/L (20-26)
[2022-07-13] MEDS: Acetylcysteine 10% 2 ML INHSOL IH SCH ×3 (17:33→23:39)
[2022-07-13] MEDS: Metoprolol XL (24 HR) Succ 25 MG TAB.ER.24H PO SCH (18:23)
[2022-07-13 20:27] LABS: Adenovirus Not Detected (Not Detect); Bordetella Pertussis Not Detected (Not Detect); Chlamydophila pneumoniae Not Detected (Not Detect); Coronavirus 229E Not Detected (Not Detect); Coronavirus HKU1 Not Detected (Not Detect); Coronavirus NL63 Not Detected (Not Detect); Coronavirus OC43 Not Detected (Not Detect); Human Metapneumovirus Not Detected (Not Detect); Human Rhinovirus/Enterovirus Not Detected (Not Detect); Influenza A Subtype 2009 H1 Not Detected (Not Detect); Influenza B Not Detected (Not Detect); Mycoplasma pneumoniae Not Detected (Not Detect); Parainfluenza Virus 1 Not Detected (Not Detect); Parainfluenza Virus 2 Not Detected (Not Detect); Parainfluenza Virus 3 Not Detected (Not Detect); Parainfluenza Virus 4 Not Detected (Not Detect); Respiratory Syncytial Virus Not Detected (Not Detect); SARS-CoV-2 Not Detected (Not Detect)
[2022-07-13] MEDS: Melatonin 3 MG TABLET PO PRN (21:57)
[2022-07-13] MEDS: Mirtazapine 15 MG TABLET PO SCH (21:58)
[2022-07-13] MEDS: *HR* OxyCODONE/APAP 10/325 TABLET PO PRN (21:58)
[2022-07-14 02:40] LABS: Hematocrit 24.2 % (37.5-50.1); Hemoglobin 7.4 g/dL (12.9-16.9); Mean Corpuscular HGB Conc 30.6 g/dL (31.6-35.5); Mean Corpuscular Hemoglobin 26.1 pg (28.0-33.3); Mean Corpuscular Volume 85.5 fL (83.0-100.0); Mean Platelet Volume 9.9 fL (9.4-12.4); Platelet Count 303 K/mcL (140-400); Red Blood Count 2.83 M/mcL (4.19-5.50); Red Cell Distribution Width 15.9 % (11.5-14.5); White Blood Count 5.6 K/mcL (4.3-11.1)
[2022-07-14 02:58] LABS: BUN/Creatinine Ratio 19 (6-26); Blood Urea Nitrogen 10 mg/dL (8-23); Calcium 9.3 mg/dL (8.6-10.3); Carbon Dioxide 28 mEq/L (23-29); Chloride 103 mEq/L (98-107); Glucose 122 mg/dL (70-105); Osmolality,Calculated 284 (280-300); Potassium 3.5 mEq/L (3.5-5.1); Sodium 137 mEq/L (136-145)
[2022-07-14] MEDS: Levalbuterol Neb 1.25 MG/3 ML IH SCH ×6 (04:30→23:32)
[2022-07-14] MEDS: Acetylcysteine 10% 2 ML INHSOL IH SCH ×6 (04:30→23:32)
[2022-07-14] MEDS: Budesonide/Formoterol 160/4.5 1 PUFF INH IH SCH ×2 (07:18→19:30)
[2022-07-14] MEDS: Tiotropium 10 INH DOSE IH SCH (07:18)
[2022-07-14] MEDS: Chlorhexidine Rinse 15 ML MOUTHWASH MM SCH ×2 (07:59→20:16)
[2022-07-14] MEDS: Lactobacillus 1 EACH CAP.SPRINK PO SCH ×2 (08:00→20:16)
[2022-07-14] MEDS: Gabapentin 300 MG CAPSULE PO SCH ×3 (08:00→20:16)
[2022-07-14] MEDS: Piperacillin/Tazobactam 3.375 GM in 0.9 % Sodium Chloride Mini Bag 100 ML IVPB SCH ×3 (08:00→23:35)
[2022-07-14] MEDS: GuaiFENesin/Dextromethorphan TABLET PO SCH ×2 (08:01→20:16)
[2022-07-14] MEDS: Metoprolol XL (24 HR) Succ 25 MG TAB.ER.24H PO SCH (08:01)
[2022-07-14] MEDS: Sennosides/Docusate Sodium TABLET PO SCH ×2 (08:01→20:16)
[2022-07-14] MEDS: *HR* OxyCODONE/APAP 10/325 TABLET PO PRN (08:25)
[2022-07-14] MEDS ORDERED: Lidocaine -MPF 4% 5 ML AMPUL ONE (09:35)
[2022-07-14] MEDS ORDERED: *HR* Succinylcholine 200 MG/10 ML VIAL IVP ONE (09:35)
[2022-07-14] MEDS ORDERED: *HR* Propofol 200 MG/20 ML VIAL IVP ONE (09:35)
[2022-07-14] MEDS ORDERED: Ondansetron 4 MG/2 ML VIAL ONE (09:35)
[2022-07-14] MEDS ORDERED: Lidocaine -MPF 2% 2 ML VIAL ONE (09:35)
[2022-07-14] MEDS: *HR* HYDROmorphone (PF) 1 MG/ML SYRINGE IVP PRN ×3 (11:31→20:17)
[2022-07-14] MEDS: Melatonin 3 MG TABLET PO PRN (20:16)
[2022-07-14] MEDS: Mirtazapine 15 MG TABLET PO SCH (20:16)
[2022-07-15] MEDS: Levalbuterol Neb 1.25 MG/3 ML IH SCH ×6 (04:22→22:22)
[2022-07-15] MEDS: Acetylcysteine 10% 2 ML INHSOL IH SCH ×6 (04:22→23:52)
[2022-07-15 05:24] LABS: Hematocrit 22.5 % (37.5-50.1); Hemoglobin 7.1 g/dL (12.9-16.9); Mean Corpuscular HGB Conc 31.6 g/dL (31.6-35.5); Mean Corpuscular Hemoglobin 26.9 pg (28.0-33.3); Mean Corpuscular Volume 85.2 fL (83.0-100.0); Mean Platelet Volume 10.2 fL (9.4-12.4); Platelet Count 295 K/mcL (140-400); Red Blood Count 2.64 M/mcL (4.19-5.50); Red Cell Distribution Width 15.8 % (11.5-14.5); White Blood Count 4.9 K/mcL (4.3-11.1)
[2022-07-15 05:43] LABS: BUN/Creatinine Ratio 25 (6-26); Blood Urea Nitrogen 13 mg/dL (8-23); Calcium 8.4 mg/dL (8.6-10.3); Carbon Dioxide 29 mEq/L (23-29); Chloride 105 mEq/L (98-107); Glucose 114 mg/dL (70-105); Osmolality,Calculated 285 (280-300); Potassium 3.6 mEq/L (3.5-5.1); Sodium 137 mEq/L (136-145)
[2022-07-15] MEDS: Budesonide/Formoterol 160/4.5 1 PUFF INH IH SCH ×2 (07:39→20:17)
[2022-07-15] MEDS: Tiotropium 10 INH DOSE IH SCH (07:40)
[2022-07-15] MEDS: Gabapentin 300 MG CAPSULE PO SCH ×3 (08:00→20:42)
[2022-07-15] MEDS: Chlorhexidine Rinse 15 ML MOUTHWASH MM SCH ×2 (08:01→20:41)
[2022-07-15] MEDS: Metoprolol XL (24 HR) Succ 25 MG TAB.ER.24H PO SCH ×2 (08:02→17:53)
[2022-07-15] MEDS: GuaiFENesin/Dextromethorphan TABLET PO SCH ×2 (08:02→20:42)
[2022-07-15] MEDS: Sennosides/Docusate Sodium TABLET PO SCH ×2 (08:02→20:41)
[2022-07-15] MEDS: Lactobacillus 1 EACH CAP.SPRINK PO SCH ×2 (08:03→20:42)
[2022-07-15] MEDS: Piperacillin/Tazobactam 3.375 GM in 0.9 % Sodium Chloride Mini Bag 100 ML IVPB SCH ×3 (08:04→23:35)
[2022-07-15] MEDS: *HR* HYDROmorphone (PF) 1 MG/ML SYRINGE IVP PRN (08:05)
[2022-07-15] MEDS: *HR* OxyCODONE/APAP 10/325 TABLET PO PRN (11:53)
[2022-07-15] MEDS ORDERED: Morphine Sulfate 2 MG/ML SYRINGE IVP PRN (17:39)
[2022-07-15] MEDS ORDERED: *HR* Metoprolol 5 MG/5 ML VIAL IVP PRN (17:47)
[2022-07-15] MEDS: Melatonin 3 MG TABLET PO PRN (20:42)
[2022-07-15] MEDS: Mirtazapine 15 MG TABLET PO SCH (20:42)
[2022-07-16] MEDS: Levalbuterol Neb 1.25 MG/3 ML IH SCH ×4 (04:21→21:01)
[2022-07-16] MEDS: Acetylcysteine 10% 2 ML INHSOL IH SCH ×6 (04:21→21:02)
[2022-07-16] MEDS: Budesonide/Formoterol 160/4.5 1 PUFF INH IH SCH ×2 (08:01→21:02)
[2022-07-16] MEDS: Tiotropium 10 INH DOSE IH SCH (08:01)
[2022-07-16] MEDS: *HR* OxyCODONE/APAP 10/325 TABLET PO PRN ×3 (08:52→20:48)
[2022-07-16] MEDS: Metoprolol XL (24 HR) Succ 25 MG TAB.ER.24H PO SCH ×2 (08:54→20:43)
[2022-07-16] MEDS: Piperacillin/Tazobactam 3.375 GM in 0.9 % Sodium Chloride Mini Bag 100 ML IVPB SCH ×2 (08:54→16:52)
[2022-07-16 09:08] LABS: Basophils % 0.4 %; Eosinophils # 0.3 K/mcL (0.0-0.6); Eosinophils % 5.1 %; Hemoglobin 7.7 g/dL (12.9-16.9); Immature Granulocytes % 0.4 % (0-4); Lymphocytes # 1.9 K/mcL (0.6-4.6); Lymphocytes % 34.7 %; Mean Corpuscular HGB Conc 30.8 g/dL (31.6-35.5); Mean Corpuscular Hemoglobin 26.6 pg (28.0-33.3); Mean Corpuscular Volume 86.2 fL (83.0-100.0); Mean Platelet Volume 9.6 fL (9.4-12.4); Monocytes # 0.4 K/mcL (0.0-1.3); Neutrophils # 2.9 K/mcL (1.6-8.9); Platelet Count 315 K/mcL (140-400); Red Cell Distribution Width 15.8 % (11.5-14.5); Segmented Neutrophils % 51.4 %; White Blood Count 5.5 K/mcL (4.3-11.1)
[2022-07-16 09:25] LABS: BUN/Creatinine Ratio 23 (6-26); Blood Urea Nitrogen 12 mg/dL (8-23); Calcium 8.9 mg/dL (8.6-10.3); Carbon Dioxide 27 mEq/L (23-29); Chloride 106 mEq/L (98-107); Glucose 80 mg/dL (70-105); Osmolality,Calculated 287 (280-300); Potassium 3.8 mEq/L (3.5-5.1); Sodium 139 mEq/L (136-145); Vancomycin,Trough 18 mcg/mL (5-10)
[2022-07-16 10:18] LABS: Adenovirus Not Detected (Not Detect); Bordetella Pertussis Not Detected (Not Detect); Chlamydophila pneumoniae Not Detected (Not Detect); Coronavirus 229E Not Detected (Not Detect); Coronavirus HKU1 Not Detected (Not Detect); Coronavirus NL63 Not Detected (Not Detect); Coronavirus OC43 Not Detected (Not Detect); Human Metapneumovirus Not Detected (Not Detect); Human Rhinovirus/Enterovirus Not Detected (Not Detect); Influenza A Subtype 2009 H1 Not Detected (Not Detect); Influenza B Not Detected (Not Detect); Mycoplasma pneumoniae Not Detected (Not Detect); Parainfluenza Virus 1 Not Detected (Not Detect); Parainfluenza Virus 2 Not Detected (Not Detect); Parainfluenza Virus 3 Not Detected (Not Detect); Parainfluenza Virus 4 Not Detected (Not Detect); Respiratory Syncytial Virus Not Detected (Not Detect); SARS-CoV-2 Not Detected (Not Detect)
[2022-07-16] MEDS: Chlorhexidine Rinse 15 ML MOUTHWASH MM SCH ×2 (10:40→21:31)
[2022-07-16] MEDS: Sennosides/Docusate Sodium TABLET PO SCH ×2 (10:40→20:42)
[2022-07-16] MEDS: Gabapentin 300 MG CAPSULE PO SCH ×3 (10:40→20:42)
[2022-07-16] MEDS: GuaiFENesin/Dextromethorphan TABLET PO SCH ×2 (10:40→20:47)
[2022-07-16] MEDS: Lactobacillus 1 EACH CAP.SPRINK PO SCH ×2 (10:40→20:42)
[2022-07-16] MEDS: Mirtazapine 15 MG TABLET PO SCH (20:45)
[2022-07-16] MEDS: Melatonin 3 MG TABLET PO PRN (20:48)
[2022-07-17] MEDS: Piperacillin/Tazobactam 3.375 GM in 0.9 % Sodium Chloride Mini Bag 100 ML IVPB SCH ×4 (00:36→23:39)
[2022-07-17] MEDS: Levalbuterol Neb 1.25 MG/3 ML IH SCH ×4 (03:46→22:57)
[2022-07-17] MEDS: Acetylcysteine 10% 2 ML INHSOL IH SCH ×4 (03:47→22:58)
[2022-07-17] MEDS: *HR* OxyCODONE/APAP 10/325 TABLET PO PRN ×3 (04:50→19:20)
[2022-07-17 05:27] LABS: Basophils % 0.4 %; Eosinophils # 0.3 K/mcL (0.0-0.6); Eosinophils % 4.6 %; Hematocrit 24.4 % (37.5-50.1); Hemoglobin 7.5 g/dL (12.9-16.9); Immature Granulocytes % 0.4 % (0-4); Lymphocytes # 1.7 K/mcL (0.6-4.6); Lymphocytes % 30.5 %; Mean Corpuscular HGB Conc 30.7 g/dL (31.6-35.5); Mean Corpuscular Hemoglobin 26.5 pg (28.0-33.3); Mean Corpuscular Volume 86.2 fL (83.0-100.0); Mean Platelet Volume 9.7 fL (9.4-12.4); Monocytes # 0.5 K/mcL (0.0-1.3); Monocytes % 9.5 %; Neutrophils # 3.1 K/mcL (1.6-8.9); Platelet Count 310 K/mcL (140-400); Red Blood Count 2.83 M/mcL (4.19-5.50); Red Cell Distribution Width 15.9 % (11.5-14.5); Segmented Neutrophils % 54.6 %; White Blood Count 5.6 K/mcL (4.3-11.1)
[2022-07-17 05:48] LABS: BUN/Creatinine Ratio 19 (6-26); Blood Urea Nitrogen 11 mg/dL (8-23); Carbon Dioxide 28 mEq/L (23-29); Chloride 105 mEq/L (98-107); Glucose 83 mg/dL (70-105); Osmolality,Calculated 287 (280-300); Potassium 3.7 mEq/L (3.5-5.1); Sodium 139 mEq/L (136-145)
[2022-07-17] MEDS: *HR* HYDROmorphone (PF) 1 MG/ML SYRINGE IVP PRN ×4 (09:51→22:07)
[2022-07-17] MEDS: Gabapentin 300 MG CAPSULE PO SCH ×3 (09:55→22:08)
[2022-07-17] MEDS: Metoprolol XL (24 HR) Succ 25 MG TAB.ER.24H PO SCH ×2 (09:55→22:07)
[2022-07-17] MEDS: GuaiFENesin/Dextromethorphan TABLET PO SCH ×2 (09:55→22:07)
[2022-07-17] MEDS: Chlorhexidine Rinse 15 ML MOUTHWASH MM SCH ×2 (09:55→22:12)
[2022-07-17] MEDS: Lactobacillus 1 EACH CAP.SPRINK PO SCH ×2 (09:55→22:08)
[2022-07-17] MEDS: Sennosides/Docusate Sodium TABLET PO SCH ×2 (09:55→22:08)
[2022-07-17] MEDS: Budesonide/Formoterol 160/4.5 1 PUFF INH IH SCH ×2 (10:56→22:57)
[2022-07-17] MEDS: Tiotropium 10 INH DOSE IH SCH (10:56)
[2022-07-17] MEDS ORDERED: Iopamidol - 370 500 ML MLS IVP ONE (15:49)
[2022-07-17] MEDS: Melatonin 3 MG TABLET PO PRN (22:07)
[2022-07-17] MEDS: Mirtazapine 15 MG TABLET PO SCH (22:12)
[2022-07-18] MEDS ORDERED: 0.9 % Sodium Chloride 500 ML IVC ONE (00:11)
[2022-07-18] MEDS ORDERED: 0.9 % Sodium Chloride 1,000 ML ONE (00:13)
[2022-07-18 01:25] LABS: VBG HCO3 28 mEq/L (21-27); VBG PCO2 67 mmHg (41-51); VBG PH 7.22 pH Units (7.32-7.42); VBG PO2 118 mmHg (25-50)
[2022-07-18] MEDS ORDERED: *HR* Adenosine 6 MG/2 ML SYRINGE IVP ONE (01:45)
[2022-07-18 01:49] LABS: BUN/Creatinine Ratio 17 (6-26); Blood Urea Nitrogen 9 mg/dL (8-23); Calcium 9.1 mg/dL (8.6-10.3); Carbon Dioxide 27 mEq/L (23-29); Chloride 103 mEq/L (98-107); Glucose 134 mg/dL (70-105); Magnesium 1.7 mg/dL (1.6-2.6); Osmolality,Calculated 287 (280-300); Phosphorous 4.8 mg/dL (2.7-4.5); Potassium 3.5 mEq/L (3.5-5.1); Sodium 138 mEq/L (136-145)
[2022-07-18 02:07] LABS: Basophils % 0.5 %; Eosinophils # 0.3 K/mcL (0.0-0.6); Eosinophils % 4.1 %; Hematocrit 27.9 % (37.5-50.1); Hemoglobin 8.5 g/dL (12.9-16.9); Immature Granulocytes % 0.2 % (0-4); Lymphocytes # 1.7 K/mcL (0.6-4.6); Lymphocytes % 25.7 %; Mean Corpuscular HGB Conc 30.5 g/dL (31.6-35.5); Mean Corpuscular Hemoglobin 26.1 pg (28.0-33.3); Mean Corpuscular Volume 85.6 fL (83.0-100.0); Mean Platelet Volume 9.7 fL (9.4-12.4); Monocytes # 0.7 K/mcL (0.0-1.3); Neutrophils # 3.9 K/mcL (1.6-8.9); Platelet Count 322 K/mcL (140-400); Red Blood Count 3.26 M/mcL (4.19-5.50); Red Cell Distribution Width 15.9 % (11.5-14.5); Segmented Neutrophils % 59.5 %; White Blood Count 6.5 K/mcL (4.3-11.1)
[2022-07-18] MEDS ORDERED: Potassium Chloride Elixir 20 MEQ/15 ML UDC PO ONE (02:12)
[2022-07-18] MEDS: Levalbuterol Neb 1.25 MG/3 ML IH SCH ×4 (03:40→23:00)
[2022-07-18 03:41] LABS: Troponin I < 0.03 ng/mL (< 0.04)
[2022-07-18] MEDS: Acetylcysteine 10% 2 ML INHSOL IH SCH ×3 (03:41→15:36)
[2022-07-18] MEDS ORDERED: tiZANidine 4 MG TABLET PO ONE (07:58)
[2022-07-18] MEDS: Albumin 25% 25gram/100mL 25 GM/100 ML IV.SOLN IVC SCH ×2 (08:18→09:30)
[2022-07-18] MEDS: Chlorhexidine Rinse 15 ML MOUTHWASH MM SCH ×2 (08:29→22:47)
[2022-07-18] MEDS: Sennosides/Docusate Sodium TABLET PO SCH ×2 (08:29→22:46)
[2022-07-18] MEDS: GuaiFENesin/Dextromethorphan TABLET PO SCH ×2 (08:30→23:56)
[2022-07-18] MEDS: Gabapentin 300 MG CAPSULE PO SCH ×3 (08:30→22:47)
[2022-07-18] MEDS: Lactobacillus 1 EACH CAP.SPRINK PO SCH ×2 (08:30→22:46)
[2022-07-18] MEDS: Budesonide/Formoterol 160/4.5 1 PUFF INH IH SCH ×2 (09:40→23:00)
[2022-07-18] MEDS: Tiotropium 10 INH DOSE IH SCH (09:40)
[2022-07-18] MEDS: *HR* OxyCODONE/APAP 10/325 TABLET PO PRN ×3 (10:35→23:25)
[2022-07-18] MEDS: Metoprolol XL (24 HR) Succ 25 MG TAB.ER.24H PO SCH ×2 (10:36→23:10)
[2022-07-18] MEDS: Piperacillin/Tazobactam 3.375 GM in 0.9 % Sodium Chloride Mini Bag 100 ML IVPB SCH ×3 (10:44→23:18)
[2022-07-18] MEDS ORDERED: E-Z-PAQUE (BARIUM SULF) SUSP 1 BOTTLE PO ONE (11:43)
[2022-07-18] MEDS ORDERED: E-Z-HD (BARIUM SULF) SUSPENSION PO ONE (11:43)
[2022-07-18] MEDS: Mirtazapine 15 MG TABLET PO SCH (22:47)
[2022-07-18] MEDS: Docusate Oral Soln 100 MG/10 ML UDC GTUBE SCH (23:19)
[2022-07-19] MEDS: Levalbuterol Neb 1.25 MG/3 ML IH SCH ×4 (03:48→21:22)
[2022-07-19 03:57] LABS: Basophils % 0.2 %; Eosinophils # 0.2 K/mcL (0.0-0.6); Eosinophils % 4.3 %; Hematocrit 22.5 % (37.5-50.1); Immature Granulocytes % 0.2 % (0-4); Lymphocytes # 1.3 K/mcL (0.6-4.6); Lymphocytes % 22.4 %; Mean Corpuscular HGB Conc 31.1 g/dL (31.6-35.5); Mean Corpuscular Hemoglobin 26.5 pg (28.0-33.3); Mean Corpuscular Volume 85.2 fL (83.0-100.0); Mean Platelet Volume 9.2 fL (9.4-12.4); Monocytes # 0.6 K/mcL (0.0-1.3); Neutrophils # 3.5 K/mcL (1.6-8.9); Platelet Count 285 K/mcL (140-400); Red Blood Count 2.64 M/mcL (4.19-5.50); Red Cell Distribution Width 15.9 % (11.5-14.5); Segmented Neutrophils % 62.9 %; White Blood Count 5.6 K/mcL (4.3-11.1)
[2022-07-19 04:16] LABS: BUN/Creatinine Ratio 17 (6-26); Blood Urea Nitrogen 12 mg/dL (8-23); Carbon Dioxide 28 mEq/L (23-29); Chloride 104 mEq/L (98-107); Glucose 99 mg/dL (70-105); Osmolality,Calculated 286 (280-300); Sodium 138 mEq/L (136-145)
[2022-07-19] MEDS ORDERED: DilTIAZem CD (24hr) 240 MG CAP.ER.24H PO SCH (09:00)
[2022-07-19] MEDS: Piperacillin/Tazobactam 3.375 GM in 0.9 % Sodium Chloride Mini Bag 100 ML IVPB SCH ×2 (10:55→18:00)
[2022-07-19] MEDS: *HR* OxyCODONE/APAP 10/325 TABLET PO PRN ×3 (10:56→22:35)
[2022-07-19] MEDS: Sennosides/Docusate Sodium TABLET PO SCH ×2 (10:57→20:56)
[2022-07-19] MEDS: Docusate Oral Soln 100 MG/10 ML UDC GTUBE SCH ×2 (10:58→20:55)
[2022-07-19] MEDS: Chlorhexidine Rinse 15 ML MOUTHWASH MM SCH ×2 (10:59→20:56)
[2022-07-19] MEDS: Gabapentin 300 MG CAPSULE PO SCH ×2 (11:02→17:59)
[2022-07-19] MEDS: Lactobacillus 1 EACH CAP.SPRINK PO SCH ×2 (11:02→20:56)
[2022-07-19] MEDS: Tiotropium 10 INH DOSE IH SCH (11:05)
[2022-07-19] MEDS: Budesonide/Formoterol 160/4.5 1 PUFF INH IH SCH ×2 (11:05→21:22)
[2022-07-19] MEDS: Mirtazapine 15 MG TABLET PO SCH (20:57)
[2022-07-20] MEDS: Piperacillin/Tazobactam 3.375 GM in 0.9 % Sodium Chloride Mini Bag 100 ML IVPB SCH ×3 (01:11→16:12)
[2022-07-20] MEDS: Gabapentin 300 MG CAPSULE PO SCH ×3 (01:12→14:19)
[2022-07-20] MEDS: Levalbuterol Neb 1.25 MG/3 ML IH SCH ×4 (04:01→20:56)
[2022-07-20] MEDS: Docusate Oral Soln 100 MG/10 ML UDC GTUBE SCH (08:07)
[2022-07-20] MEDS: Chlorhexidine Rinse 15 ML MOUTHWASH MM SCH ×2 (08:07→20:46)
[2022-07-20] MEDS: Lactobacillus 1 EACH CAP.SPRINK PO SCH ×2 (08:08→20:44)
[2022-07-20] MEDS: Sennosides/Docusate Sodium TABLET PO SCH ×2 (08:08→20:44)
[2022-07-20] MEDS: *HR* OxyCODONE/APAP 10/325 TABLET PO PRN ×2 (08:22→14:19)
[2022-07-20] MEDS: Budesonide/Formoterol 160/4.5 1 PUFF INH IH SCH ×2 (10:54→20:56)
[2022-07-20] MEDS: Tiotropium 10 INH DOSE IH SCH (10:55)
[2022-07-20] MEDS ORDERED: 0.9 % Sodium Chloride 1,000 ML IVC ONE (19:09)
[2022-07-20 19:34] LABS: Adenovirus Not Detected (Not Detect); Bordetella Pertussis Not Detected (Not Detect); Chlamydophila pneumoniae Not Detected (Not Detect); Coronavirus 229E Not Detected (Not Detect); Coronavirus HKU1 Not Detected (Not Detect); Coronavirus NL63 Not Detected (Not Detect); Coronavirus OC43 Not Detected (Not Detect); Human Metapneumovirus Not Detected (Not Detect); Human Rhinovirus/Enterovirus Not Detected (Not Detect); Influenza A Subtype 2009 H1 Not Detected (Not Detect); Influenza B Not Detected (Not Detect); Mycoplasma pneumoniae Not Detected (Not Detect); Parainfluenza Virus 1 Not Detected (Not Detect); Parainfluenza Virus 2 Not Detected (Not Detect); Parainfluenza Virus 3 Not Detected (Not Detect); Parainfluenza Virus 4 Not Detected (Not Detect); Respiratory Syncytial Virus Not Detected (Not Detect); SARS-CoV-2 Not Detected (Not Detect)
[2022-07-20] MEDS: Gabapentin 300 MG CAPSULE GTUBE SCH (20:44)
[2022-07-20] MEDS: Mirtazapine 15 MG TABLET PO SCH (20:45)
[2022-07-20] MEDS: GuaiFENesin Liq 200 MG/10 ML UDC GTUBE SCH (20:45)
[2022-07-21] MEDS: Piperacillin/Tazobactam 3.375 GM in 0.9 % Sodium Chloride Mini Bag 100 ML IVPB SCH ×3 (00:55→17:41)
[2022-07-21] MEDS: Levalbuterol Neb 1.25 MG/3 ML IH SCH ×4 (04:00→22:05)
[2022-07-21 05:33] LABS: Hematocrit 25.4 % (37.5-50.1); Hemoglobin 7.8 g/dL (12.9-16.9); Mean Corpuscular HGB Conc 30.7 g/dL (31.6-35.5); Mean Corpuscular Hemoglobin 26.2 pg (28.0-33.3); Mean Corpuscular Volume 85.2 fL (83.0-100.0); Mean Platelet Volume 9.8 fL (9.4-12.4); Platelet Count 319 K/mcL (140-400); Red Blood Count 2.98 M/mcL (4.19-5.50); Red Cell Distribution Width 15.9 % (11.5-14.5); White Blood Count 8.3 K/mcL (4.3-11.1)
[2022-07-21 05:53] LABS: BUN/Creatinine Ratio 15 (6-26); Blood Urea Nitrogen 10 mg/dL (8-23); Calcium 9.3 mg/dL (8.6-10.3); Carbon Dioxide 27 mEq/L (23-29); Chloride 101 mEq/L (98-107); Glucose 93 mg/dL (70-105); Osmolality,Calculated 281 (280-300); Potassium 3.6 mEq/L (3.5-5.1); Sodium 136 mEq/L (136-145)
[2022-07-21] MEDS: Docusate Oral Soln 100 MG/10 ML UDC GTUBE SCH ×3 (06:19→19:49)
[2022-07-21] MEDS: Lactobacillus 1 EACH CAP.SPRINK PO SCH ×2 (09:24→19:49)
[2022-07-21] MEDS: Sennosides/Docusate Sodium TABLET PO SCH ×2 (09:24→19:50)
[2022-07-21] MEDS: Chlorhexidine Rinse 15 ML MOUTHWASH MM SCH ×2 (09:25→19:49)
[2022-07-21] MEDS: GuaiFENesin Liq 200 MG/10 ML UDC GTUBE SCH ×2 (09:29→19:49)
[2022-07-21] MEDS: Gabapentin 300 MG CAPSULE GTUBE SCH ×3 (09:29→19:49)
[2022-07-21] MEDS: *HR* OxyCODONE/APAP 10/325 TABLET PO PRN ×2 (09:29→22:30)
[2022-07-21] MEDS: Budesonide/Formoterol 160/4.5 1 PUFF INH IH SCH ×2 (10:01→22:05)
[2022-07-21] MEDS: Tiotropium 10 INH DOSE IH SCH (10:02)
[2022-07-21] MEDS ORDERED: Nitroglycerin 0.4 MG TAB.SUBL SL PRN (12:37)
[2022-07-21] MEDS ORDERED: Ipratropium/Albuterol Neb 3 ML IH ONE (12:37)
[2022-07-21] MEDS ORDERED: Ondansetron 4 MG/2 ML VIAL IVP PRN (12:37)
[2022-07-21] MEDS ORDERED: Naloxone 0.4 MG/ML INJ IVP PRN (12:37)
[2022-07-21] MEDS ORDERED: *HR* Succinylcholine 200 MG/10 ML VIAL IVP ONE (13:06)
[2022-07-21] MEDS ORDERED: Lidocaine -MPF 2% 2 ML VIAL ONE (13:06)
[2022-07-21] MEDS ORDERED: EPHEDrine sulfate 50 MG/10 ML VIAL IVP ONE (13:37)
[2022-07-21] MEDS ORDERED: Levalbuterol Neb 1.25 MG/3 ML IH STA (14:09)
[2022-07-21] MEDS: Mirtazapine 15 MG TABLET PO SCH (19:50)
[2022-07-21] MEDS: Melatonin 3 MG TABLET PO PRN (22:25)
[2022-07-22] MEDS: Piperacillin/Tazobactam 3.375 GM in 0.9 % Sodium Chloride Mini Bag 100 ML IVPB SCH ×3 (01:36→18:44)
[2022-07-22] MEDS: Levalbuterol Neb 1.25 MG/3 ML IH SCH ×4 (03:39→21:44)
[2022-07-22] MEDS: *HR* OxyCODONE/APAP 10/325 TABLET PO PRN ×3 (05:16→15:07)
[2022-07-22] MEDS: Budesonide/Formoterol 160/4.5 1 PUFF INH IH SCH ×2 (10:19→21:44)
[2022-07-22] MEDS: Tiotropium 10 INH DOSE IH SCH (10:20)
[2022-07-22] MEDS ORDERED: Piperacillin/Tazobactam 3.375 GM VIAL ONE (11:03)
[2022-07-22] MEDS: Lactobacillus 1 EACH CAP.SPRINK PO SCH ×2 (11:11→20:19)
[2022-07-22] MEDS: GuaiFENesin Liq 200 MG/10 ML UDC GTUBE SCH ×2 (11:11→20:22)
[2022-07-22] MEDS: Furosemide Oral Soln 40 MG/4 ML UDC PO SCH (11:11)
[2022-07-22] MEDS: Sennosides/Docusate Sodium TABLET PO SCH ×2 (11:11→20:19)
[2022-07-22] MEDS: Docusate Oral Soln 100 MG/10 ML UDC GTUBE SCH ×2 (11:14→20:22)
[2022-07-22] MEDS: Chlorhexidine Rinse 15 ML MOUTHWASH MM SCH ×2 (11:14→20:19)
[2022-07-22] MEDS: Gabapentin 300 MG CAPSULE GTUBE SCH ×3 (11:15→20:19)
[2022-07-22 15:16] LABS: RBC,Pleural Fluid 5000 RBC/mcL
[2022-07-22 15:21] LABS: Total Protein,Pleural Fluid 3.2 g/dL
[2022-07-22 17:18] LABS: Hematocrit 24.2 % (37.5-50.1); Hemoglobin 7.3 g/dL (12.9-16.9); Mean Corpuscular HGB Conc 30.2 g/dL (31.6-35.5); Mean Corpuscular Hemoglobin 25.5 pg (28.0-33.3); Mean Corpuscular Volume 84.6 fL (83.0-100.0); Mean Platelet Volume 10.3 fL (9.4-12.4); Platelet Count 354 K/mcL (140-400); Red Blood Count 2.86 M/mcL (4.19-5.50); Red Cell Distribution Width 15.4 % (11.5-14.5); White Blood Count 7.3 K/mcL (4.3-11.1)
[2022-07-22 17:28] LABS: BUN/Creatinine Ratio 28 (6-26); Blood Urea Nitrogen 19 mg/dL (8-23); Calcium 8.9 mg/dL (8.6-10.3); Carbon Dioxide 29 mEq/L (23-29); Chloride 102 mEq/L (98-107); Glucose 109 mg/dL (70-105); Osmolality,Calculated 289 (280-300); Potassium 3.3 mEq/L (3.5-5.1); Sodium 138 mEq/L (136-145)
[2022-07-22] MEDS: Mirtazapine 15 MG TABLET PO SCH (20:19)
[2022-07-22] MEDS: Melatonin 3 MG TABLET PO PRN (22:50)
[2022-07-23 01:05] LABS: Appearance of Pleural Fl Hazy (Clear)
[2022-07-23] MEDS: Piperacillin/Tazobactam 3.375 GM in 0.9 % Sodium Chloride Mini Bag 100 ML IVPB SCH ×3 (03:41→18:16)
[2022-07-23] MEDS: Levalbuterol Neb 1.25 MG/3 ML IH SCH ×4 (03:42→22:26)
[2022-07-23 04:01] LABS: Hematocrit 22.7 % (37.5-50.1); Hemoglobin 7.2 g/dL (12.9-16.9); Mean Corpuscular HGB Conc 31.7 g/dL (31.6-35.5); Mean Corpuscular Hemoglobin 26.5 pg (28.0-33.3); Mean Corpuscular Volume 83.5 fL (83.0-100.0); Platelet Count 310 K/mcL (140-400); Red Blood Count 2.72 M/mcL (4.19-5.50); Red Cell Distribution Width 15.5 % (11.5-14.5); White Blood Count 5.5 K/mcL (4.3-11.1)
[2022-07-23 04:13] LABS: INR 1.2; Prothrombin Time 13.3 Seconds (9.4-12.1)
[2022-07-23 04:20] LABS: BUN/Creatinine Ratio 26 (6-26); Blood Urea Nitrogen 15 mg/dL (8-23); Calcium 8.7 mg/dL (8.6-10.3); Carbon Dioxide 30 mEq/L (23-29); Chloride 103 mEq/L (98-107); Glucose 105 mg/dL (70-105); Lactate Dehydrogenase 106 Units/L (140-271); Osmolality,Calculated 291 (280-300); Potassium 3.1 mEq/L (3.5-5.1); Sodium 140 mEq/L (136-145); Total Protein 5.3 g/dL (6.4-8.9)
[2022-07-23] MEDS: Chlorhexidine Rinse 15 ML MOUTHWASH MM SCH ×2 (09:14→20:20)
[2022-07-23] MEDS: Docusate Oral Soln 100 MG/10 ML UDC GTUBE SCH ×2 (09:14→20:19)
[2022-07-23] MEDS: GuaiFENesin Liq 200 MG/10 ML UDC GTUBE SCH ×2 (09:14→20:19)
[2022-07-23] MEDS: Furosemide Oral Soln 40 MG/4 ML UDC PO SCH (09:15)
[2022-07-23] MEDS: Sennosides/Docusate Sodium TABLET PO SCH ×2 (09:16→20:19)
[2022-07-23] MEDS: Gabapentin 300 MG CAPSULE GTUBE SCH ×3 (09:16→20:20)
[2022-07-23] MEDS: *HR* OxyCODONE/APAP 10/325 TABLET PO PRN ×2 (09:16→20:30)
[2022-07-23] MEDS: Lactobacillus 1 EACH CAP.SPRINK PO SCH ×2 (09:16→20:20)
[2022-07-23] MEDS: Budesonide/Formoterol 160/4.5 1 PUFF INH IH SCH ×2 (10:24→22:27)
[2022-07-23] MEDS: Tiotropium 10 INH DOSE IH SCH (10:24)
[2022-07-23] MEDS ORDERED: Potassium Chloride Elixir 20 MEQ/15 ML UDC GTUBE ONE (13:07)
[2022-07-23] MEDS: Mirtazapine 15 MG TABLET PO SCH (20:20)
[2022-07-23] MEDS: Melatonin 3 MG TABLET PO PRN (20:49)
[2022-07-24] MEDS: *HR* OxyCODONE/APAP 10/325 TABLET PO PRN ×5 (00:50→20:03)
[2022-07-24] MEDS: Piperacillin/Tazobactam 3.375 GM in 0.9 % Sodium Chloride Mini Bag 100 ML IVPB SCH ×3 (04:00→18:23)
[2022-07-24 04:13] LABS: Hematocrit 22.8 % (37.5-50.1); Hemoglobin 6.9 g/dL (12.9-16.9); Mean Corpuscular HGB Conc 30.3 g/dL (31.6-35.5); Mean Corpuscular Hemoglobin 25.7 pg (28.0-33.3); Mean Corpuscular Volume 85.1 fL (83.0-100.0); Platelet Count 342 K/mcL (140-400); Red Blood Count 2.68 M/mcL (4.19-5.50); Red Cell Distribution Width 15.7 % (11.5-14.5); White Blood Count 5.1 K/mcL (4.3-11.1)
[2022-07-24] MEDS: Levalbuterol Neb 1.25 MG/3 ML IH SCH ×4 (04:29→21:47)
[2022-07-24 04:35] LABS: BUN/Creatinine Ratio 21 (6-26); Blood Urea Nitrogen 12 mg/dL (8-23); Calcium 8.3 mg/dL (8.6-10.3); Carbon Dioxide 30 mEq/L (23-29); Chloride 105 mEq/L (98-107); Glucose 96 mg/dL (70-105); Osmolality,Calculated 288 (280-300); Potassium 3.7 mEq/L (3.5-5.1); Sodium 139 mEq/L (136-145)
[2022-07-24] MEDS: Chlorhexidine Rinse 15 ML MOUTHWASH MM SCH ×2 (09:45→20:03)
[2022-07-24] MEDS: Docusate Oral Soln 100 MG/10 ML UDC GTUBE SCH ×2 (09:46→20:03)
[2022-07-24] MEDS: Lactobacillus 1 EACH CAP.SPRINK PO SCH ×2 (09:46→20:04)
[2022-07-24] MEDS: GuaiFENesin Liq 200 MG/10 ML UDC GTUBE SCH ×2 (09:46→20:03)
[2022-07-24] MEDS: Gabapentin 300 MG CAPSULE GTUBE SCH ×3 (09:46→20:05)
[2022-07-24] MEDS: Furosemide Oral Soln 40 MG/4 ML UDC PO SCH (09:46)
[2022-07-24] MEDS: Sennosides/Docusate Sodium TABLET PO SCH ×2 (09:47→20:04)
[2022-07-24] MEDS: Budesonide/Formoterol 160/4.5 1 PUFF INH IH SCH ×2 (10:52→21:47)
[2022-07-24] MEDS: Tiotropium 10 INH DOSE IH SCH (10:52)
[2022-07-24] MEDS ORDERED: 0.9 % Sodium Chloride 250 ML IVC SCH (12:30)
[2022-07-24 20:00] VITALS: BP 98/54; PULSE 76; TEMP 98.3; O2SAT 96
[2022-07-24] MEDS: Mirtazapine 15 MG TABLET PO SCH (20:05)
== END 2022-07-24 23:59 | disposition other institution (70) | DRG 193 ==
LOC: EMEROOARM 15:38 → 3NENU 15:38 → SUATTDRO 19:44 → 3NENU 20:58 → SUATTDRO 07-10 11:40
PROVIDERS: ADMIT Internal Medicine; ATTEND Internal Medicine